=== PATIENT | male | born 1945 | race Caucasian/White ===

== ENCOUNTER 2018-05-10 11:21 | Inpatient (IN) | payer MEDICARE, OTHER ==
[~2018-05-10] VITALS: Ht 162.6 cm; Wt 83.0 kg
--- NOTE | 2018-05-10 11:44 | Emergency Room Report ---
History of Present Illness General Chief Complaint: General Complaint Present Illness HPI Is a 72-year-old male brought in by EMS after increased rectal bleeding. Patient was sent in from [facility]. Patient noted to have bright red blood per rectum. Patient reports having a prior history of schizophrenia. He denies any current pain. Patient was noted to have previous oral anticoagulant use for atrial fibrillation. History is markedly limited by poor historian. Allergies: Coded Allergies: FEXOFENADINE (Verified Allergy, Unknown, 05/10/18) Patient History Past Medical History: see triage record, AFib Reviewed Nursing Documentation: PMH: Agreed; PSxH: Agreed Review of Systems All Other Systems: limited - Poor historian Physical Exam Vital Signs Date Time Temp Pulse Resp B/P (MAP) Pulse Ox O2 Delivery O2 Flow Rate FiO2 05/10/18 11:14 97.5 62 19 124/82 95 Room Air Sp02 EP Interpretation: reviewed, normal General Appearance: normal inspection, well appearing, no apparent distress, alert Head: atraumatic ENT: normal ENT inspection, hearing grossly normal, normal voice Neck: normal inspection, full range of motion, supple, no bony tend Respiratory: normal inspection, lungs clear, normal breath sounds, no respiratory distress, no retraction, no wheezing Cardiovascular #1: regular rate, rhythm, no edema Gastrointestinal: normal inspection, normal bowel sounds, non tender, soft, no guarding, no hernia Rectal: other - gross blood Genitourinary: no CVA tenderness Musculoskeletal: normal inspection, back normal, normal range of motion Neurologic: normal inspection, alert, responsive, speech normal Psychiatric: mood/affect normal Skin: normal inspection, normal color, no rash Medical Decision Making Diagnostic Impression: Primary Impression: Lower GI bleed Additional Impression: On continuous oral anticoagulation ER Course Patient presented for rectal bleeding. Differential diagnosis included but was not limited to aortoenteric fistula, diverticular bleeding, avm, coagulopathy among others. Patient was noted to have brisk bleeding. Initial blood counts were normal. Patient was given IV tranexamic acid due to brisk bleeding. Patient was discussed with Dr. Moe for inpatient management. Dr. Garza was contacted for GI consult. Labs Test Thromboplast Time 32 SEC (23-33) Urine Color Pale yellow Urine Appearance Clear Urine pH 6.5 (4.5-8.0) Urine Specific [place] 1.005 (1.005-1.035) Urine Protein Negative (NEGATIVE) Urine Glucose (UA) Negative (NEGATIVE) Urine Ketones Negative (NEGATIVE) Urine Blood Negative (NEGATIVE) Urine Nitrite Negative (NEGATIVE) Urine Bilirubin Negative (NEGATIVE) Urine Urobilinogen Normal MG/DL (0.0-1.0) Urine Leukocyte Esterase Negative (NEGATIVE) Sodium Level 137 MMOL/L (136-145) Potassium Level 4.3 MMOL/L (3.5-5.1) Chloride Level 100 MMOL/L (98-107) Carbon Dioxide Level 29 MMOL/L (21-32) Anion Gap 8 mmol/L (5-15) Blood Urea Nitrogen 23 mg/dL (7-18) Creatinine 1.1 MG/DL (0.55-1.30) Estimat Glomerular Filtration Rate mL/min (>60) Glucose Level 95 MG/DL (74-106) Calcium Level 9.4 MG/DL (8.5-10.1) Total Bilirubin 0.5 MG/DL (0.2-1.0) Aspartate Amino Transf (AST/SGOT) 25 U/L (15-37) Alanine Aminotransferase (ALT/SGPT) 32 U/L (12-78) Alkaline Phosphatase 104 U/L (46-116) Troponin I 0.003 ng/mL (0.000-0.056) Total Protein 7.6 G/DL (6.4-8.2) Albumin 3.6 G/DL (3.4-5.0) Globulin 4.0 g/dL Albumin/Globulin Ratio 0.9 (1.0-2.7) Lipase 128 U/L (73-393) White Blood Count 6.8 K/UL (4.8-10.8) Red Blood Count 5.07 M/UL (4.70-6.10) Hemoglobin 13.9 G/DL (14.2-18.0) Hematocrit 43.0 % (42.0-52.0) Mean Corpuscular Volume 85 FL (80-99) Mean Corpuscular Hemoglobin 27.5 PG (27.0-31.0) Mean Corpuscular Hemoglobin Concent 32.4 G/DL (32.0-36.0) Red Cell Distribution Width 13.9 % (11.6-14.8) Platelet Count 203 K/UL (150-450) Mean Platelet Volume 6.4 FL (6.5-10.1) Neutrophils (%) (Auto) 67.9 % (45.0-75.0) Lymphocytes (%) (Auto) 22.1 % (20.0-45.0) Monocytes (%) (Auto) 8.0 % (1.0-10.0) Eosinophils (%) (Auto) 1.4 % (0.0-3.0) Basophils (%) (Auto) 0.6 % (0.0-2.0) EKG Diagnostic Results Rate: normal Rhythm: NSR ST Segments: no acute changes Last Vital Signs Date Time Temp Pulse Resp B/P (MAP) Pulse Ox O2 Delivery O2 Flow Rate FiO2 05/10/18 11:14 97.5 62 19 124/82 95 Room Air Status: unchanged Disposition: ADMITTED INPATIENT Mark Rosales MD May 10, 2018 11:44
[2018-05-10] MEDS ORDERED: Pantoprazole Inj IV ONE (11:45)
[2018-05-10] MEDS ORDERED: Isovue-300 100ml vial INJ PRN (11:45)
[2018-05-10 12:02] VITALS: BP 128/75
--- NOTE | 2018-05-10 12:02 | NUR ---
ED Nurse Note: Patient resting in bed. Patient awake, alert, oriented x 3, talking to himself, hx of schizophrenia. Patient presents to ER due to rectal bleeding, undressed patient, removed diaper, saturated with bright, red blood. Patient states 'I put fingers ' in the rectum. No active bleeding noted from the affected site. Patient placed on playground monitor. Bed in lowest position.
[2018-05-10 12:29] LABS: APPEARANCE,URINE CLEAR; BILIRUBIN, URINE NEGATIVE (NEGATIVE); COLOR,URINE PALE YELLOW; GLUCOSE, URINE (UA) NEGATIVE (NEGATIVE); KETONES,URINE NEGATIVE (NEGATIVE); LEUKOCYTE ESTERASE ,URINE NEGATIVE (NEGATIVE); NITRITE,URINE NEGATIVE (NEGATIVE); PH,URINE 6.5 (4.5-8.0); PROTEIN,URINE NEGATIVE (NEGATIVE); UROBILINOGEN,URINE NORMAL MG/DL (0.0-1.0)
[2018-05-10] MEDS ORDERED: CALCIUM + D3 E1 EACH PO (12:32)
[2018-05-10] MEDS ORDERED: ACIDOPHILUS1 EAC7 PO (12:32)
[2018-05-10] MEDS ORDERED: MULTIVITAMINS1 EAC8 ORAL (12:32)
[2018-05-10] MEDS ORDERED: PROSCAR5 MG ORAL (12:32)
[2018-05-10 12:37] LABS: BASOPHILS % (AUTO) 0.8 % (0.0-2.0); EOSINOPHILS % (AUTO) 1.4 % (0.0-3.0); HEMATOCRIT 43.9 % (42.0-52.0); HEMOGLOBIN 13.6 G/DL (14.2-18.0); LYMPHOCYTES % (AUTO) 21.4 % (20.0-45.0); MEAN CORPUSCULAR VOLUME 87 FL (80-99); MONOCYTES % (AUTO) 10.1 % (1.0-10.0); NEUTROPHILS % (AUTO) 66.4 % (45.0-75.0); PLATELET COUNT 205 K/UL (150-450); RED BLOOD COUNT 5.03 M/UL (4.70-6.10); RED CELL DISTRIBUTION WIDTH 14.2 % (11.6-14.8); WHITE BLOOD COUNT 7.5 K/UL (4.8-10.8)
[2018-05-10] MEDS ORDERED: DOCUSATE SODIU250 MG ORAL (12:42)
[2018-05-10] MEDS ORDERED: ELIQUIS5 MG PO (12:42)
[2018-05-10] MEDS ORDERED: POTASSIUM CHLO20 ME1 ORAL (12:42)
[2018-05-10] MEDS ORDERED: FLONASE ALLERG9.9 ML NS (12:42)
[2018-05-10] MEDS ORDERED: MONTELUKAST SOD10 MG ORAL (12:42)
[2018-05-10] MEDS ORDERED: BETHANECHOL CHL10 MG ORAL (12:42)
[2018-05-10] MEDS ORDERED: METOPROLOL TART50 M1 ORAL (12:42)
[2018-05-10] MEDS ORDERED: ATIVAN1 MG ORAL (12:42)
[2018-05-10] MEDS ORDERED: FUROSEMIDE40 MG ORAL (12:42)
[2018-05-10] MEDS ORDERED: TAMSULOSIN HCL0.4 MG ORAL (12:42)
[2018-05-10] MEDS ORDERED: ZYPREXA10 MG ORAL (12:42)
[2018-05-10 12:44] LABS: ANION GAP 8 mmol/L (5-15); BLOOD UREA NITROGEN 23 mg/dL (7-18); CALCIUM 9.4 MG/DL (8.5-10.1); CARBON DIOXIDE 29 MMOL/L (21-32); CHLORIDE 100 MMOL/L (98-107); CREATININE 1.1 MG/DL (0.55-1.30); POTASSIUM 4.3 MMOL/L (3.5-5.1); SODIUM 137 MMOL/L (136-145)
[2018-05-10] MEDS ORDERED: MIRTAZAPINE7.5 MG ORAL (12:44)
[2018-05-10] MEDS ORDERED: PANTOPRAZOLE SO20 MG ORAL (12:45)
[2018-05-10] MEDS ORDERED: LEVOTHYROXINE175 MCG ORAL (12:50)
[2018-05-10] MEDS ORDERED: ACETAMINOPHEN325 M1 ORAL (12:50)
[2018-05-10] MEDS ORDERED: ATORVASTATIN CA40 MG ORAL (12:50)
[2018-05-10 12:54] LABS: ALANINE AMINOTRANSFERASE 32 U/L (12-78); ALBUMIN 3.6 G/DL (3.4-5.0); ALBUMIN/GLOBULIN RATIO 0.9 (1.0-2.7); ALKALINE PHOSPHATASE 104 U/L (46-116); ASPARTATE AMINO TRANSFERASE 25 U/L (15-37); BILIRUBIN,TOTAL 0.5 MG/DL (0.2-1.0)
--- NOTE | 2018-05-10 12:58 | NUR ---
ED Nurse Note: Dr. Rosales notified of diaper with blood and pad getting saturated with blood (unknown amount) at this time.
--- NOTE | 2018-05-10 13:21 | NUR ---
ED Nurse Note: Patient taken down for CT exam.
--- NOTE | 2018-05-10 14:02 | NUR ---
ED Nurse Note: Dr. Rosales notified of patient passing blood clots ( approximately amount of fist size).Patient reports no dizziness or drowsiness.
[2018-05-10 14:04] VITALS: BP 108/80
--- NOTE | 2018-05-10 14:17 | Diagnostic Imaging Report ---
Clinical Indication: Abdominal pain, increased rectal bleeding Technique: No oral contrast utilized, per emergency room physician request IV administration nonionic contrast. Venous phase spiral acquisition obtained through the abdomen and pelvis. Multiplanar reconstructions were generated. Total dose length product 1428.24 mGycm. CTDIvol(s) 17.25,19.51 mGy. Dose reduction achieved using automated exposure control Comparison: none Findings: Lack of enteric contrast limits assessment of the GI tract. High attenuation material is seen filling the sigmoid colon and rectum. Considerable stool is seen throughout the remainder the colon. The appendix is not definitely demonstrated, likely due to the motion artifact, although no definite findings to suggest acute appendicitis are evident. There is colonic diverticulosis. No definite small bowel distention. No definite free or loculated intraperitoneal gas or fluid. The distal esophagus, stomach, duodenum are unremarkable. There are bilateral small fat-containing inguinal hernias. The liver, gallbladder, bile ducts, pancreas spleen, adrenals are unremarkable. The left kidney demonstrates a 1.5 cm cyst. Both kidneys demonstrate subcentimeter low-attenuation lesion, characterize, most likely benign simple cysts. No retroperitoneal or mesenteric mass or adenopathy. No pelvic mass or adenopathy. The bladder is distended. The lung bases are clear except for minimal dependent atelectatic changes. The bones demonstrate degenerative spondylosis changes at the lumbosacral junction. Impression: Limited assessment of the GI tract, due to lack of enteric contrast administration High attenuation material, presumably blood given stated clinical history, seen filling the sigmoid colon and rectum. Etiology of the bleeding is not definitely demonstrated Colonic diverticulosis. No evidence of acute diverticulitis. Left renal cysts. Subcentimeter low-attenuation bilateral renal lesions, too small to characterize, most likely benign simple cysts Other findings as noted, including dependent basilar pulmonary atelectatic changes, degenerative spondylosis, bilateral small fat-containing inguinal hernias The CT scanner at [facility] is accredited by the [employer] and the scans are performed using protocols designed to limit radiation exposure to as low as reasonably achievable to attain images of sufficient resolution adequate for diagnostic evaluation.
[2018-05-10 15:15] VITALS: BP 119/89
--- NOTE | 2018-05-10 15:25 | NUR ---
ED Nurse Note: patient had bowel movement with tons of blood in it. ERMD notifyed.
[2018-05-10 15:28] LABS: BASOPHILS % (AUTO) 0.6 % (0.0-2.0); EOSINOPHILS % (AUTO) 1.4 % (0.0-3.0); HEMOGLOBIN 13.9 G/DL (14.2-18.0); LYMPHOCYTES % (AUTO) 22.1 % (20.0-45.0); MEAN CORPUSCULAR VOLUME 85 FL (80-99); NEUTROPHILS % (AUTO) 67.9 % (45.0-75.0); PLATELET COUNT 203 K/UL (150-450); RED BLOOD COUNT 5.07 M/UL (4.70-6.10); RED CELL DISTRIBUTION WIDTH 13.9 % (11.6-14.8); WHITE BLOOD COUNT 6.8 K/UL (4.8-10.8)
[2018-05-10] MEDS ORDERED: Tranexamic Acid 1,000 MG in NS 55 ML IVPB ONE (15:30)
--- NOTE | 2018-05-10 15:58 | GI Initial Consult Note ---
History of Present Illness General Date patient seen: May 10, 2018 Time patient seen: 15:53 Reason for Hospitalization: General Complaint Referring physician: SANJUANITA Reason for Consultation: lower GI bleed Present Illness HPI Is a 72-year-old male brought in by EMS after increased rectal bleeding. Patient [facility]. Patient noted to have bright red blood per rectum. Patient reports having a prior history of schizophrenia. He denies any current pain. History is markedly limited by poor historian. GI consulted for lower GI bleed. ROS limited, patient has history of schizophrenia. Patient seen, awake alert oriented no apparent distress with no active signs or symptoms of nausea vomiting. Observed in ER, the patient had a episode of severe lower GI bleed. Labs reviewed; patient hemoglobin of 13.9, no transaminitis, no leukocytosis. Unknown history of endoscopic colonoscopy. Documented the patient is on Eliquis. Home Meds Reported Medications Acetaminophen* (ACETAMINOPHEN 325MG TABLET*) 325 Mg Tablet, 650 MG ORAL Q6H PRN for For Pain, TAB 05/10/18 Atorvastatin Calcium* (ATORVASTATIN CALCIUM*) 40 Mg Tablet, 40 MG ORAL BEDTIME, TAB 05/10/18 Levothyroxine Sodium (LEVOTHYROXINE SODIUM) 175 Mcg Tablet, 50 MCG ORAL DAILY, TAB Take in the morning on an empty stomach, at least 30 minutes before food. 05/10/18 Pantoprazole (PANTOPRAZOLE) 20 Mg Tablet.dr, 40 MG ORAL DAILY, #10 TAB 0 Refills 05/10/18 Mirtazapine* (MIRTAZAPINE*) 7.5 Mg Tablet, 7.5 MG ORAL BEDTIME, TAB 05/10/18 Montelukast Sodium* (MONTELUKAST SODIUM*) 10 Mg Tablet, 10 MG ORAL BEDTIME, TAB 05/10/18 Tamsulosin Hcl (TAMSULOSIN HCL*) 0.4 Mg Cap.er.24h, 0.4 MG ORAL BEDTIME, CAP 05/10/18 Bethanechol* (BETHANECHOL*) 10 Mg Tablet, 10 MG ORAL THREE TIMES A DAY, TAB 05/10/18 Metoprolol Tartrate* (METOPROLOL TARTRATE*) 50 Mg Tablet, 50 MG ORAL EVERY 12 HOURS, TAB 05/10/18 Apixaban (ELIQUIS) 5 Mg Tablet, 5 MG PO BID, TAB 05/10/18 Lorazepam* (ATIVAN*) 1 Mg Tablet, 1 MG ORAL BID, TAB 05/10/18 Fluticasone Propionate (Flonase Allergy Relief) 9.9 Ml [place].susp, 9.9 ML NS BID 05/10/18 Docusate Sodium* (DOCUSATE SODIUM*) 250 Mg Capsule, 250 MG ORAL TWICE A DAY, CAP 05/10/18 Olanzapine* (ZYPREXA*) 10 Mg Tablet, 15 MG ORAL DAILY, #30 TAB 0 Refills 05/10/18 Potassium Chloride* (K-DUR*) 20 Meq Tab.er.prt, 20 MEQ ORAL DAILY, #7 TAB 0 Refills 05/10/18 Furosemide* (LASIX*) 40 Mg Tablet, 40 MG ORAL DAILY, TAB 05/10/18 Lactobacillus Acidophilus (Acidophilus) 1 Each Tablet, 1 EACH PO DAILY, TAB 05/10/18 Finasteride* (PROSCAR*) 5 Mg Tablet, 5 MG ORAL DAILY, #30 TAB 0 Refills 05/10/18 Calcium Carb & Cit/Vitamin D3 (CALCIUM + D3 ER TABLET) 1 Each Tablet.er, 1 EACH PO DAILY, TAB 05/10/18 Multivitamin With Minerals (MULTIVITAMINS WITH MINERALS*) 1 Each Tablet, 1 TAB ORAL DAILY, TAB 05/10/18 Med list reviewed/reconciled: Yes Allergies: Coded Allergies: FEXOFENADINE (Verified Allergy, Unknown, 05/10/18) Patient History Limited by: medical condition History Provided By: Medical Record PMH Narrative Reviewed Nursing Documentation: PMH: Agreed; PSxH: Agreed Social History: Denies: smoking, alcohol use, drug use, other Review of Systems All Other Systems: limited Physical Exam Vital Signs Date Time Temp Pulse Resp B/P (MAP) Pulse Ox O2 Delivery O2 Flow Rate FiO2 05/10/18 11:14 97.5 62 19 124/82 95 Room Air Sp02 EP Interpretation: reviewed, normal Labs Laboratory Tests Test 05/10/18 12:14 05/10/18 15:00 White Blood Count 7.5 K/UL (4.8-10.8) 6.8 K/UL (4.8-10.8) Red Blood Count 5.03 M/UL (4.70-6.10) 5.07 M/UL (4.70-6.10) Hemoglobin 13.6 G/DL (14.2-18.0) L 13.9 G/DL (14.2-18.0) L Hematocrit 43.9 % (42.0-52.0) 43.0 % (42.0-52.0) Mean Corpuscular Volume 87 FL (80-99) 85 FL (80-99) Mean Corpuscular Hemoglobin 27.1 PG (27.0-31.0) 27.5 PG (27.0-31.0) Mean Corpuscular Hemoglobin Concent 31.1 G/DL (32.0-36.0) L 32.4 G/DL (32.0-36.0) Red Cell Distribution Width 14.2 % (11.6-14.8) 13.9 % (11.6-14.8) Platelet Count 205 K/UL (150-450) 203 K/UL (150-450) Mean Platelet Volume 6.6 FL (6.5-10.1) 6.4 FL (6.5-10.1) L Neutrophils (%) (Auto) 66.4 % (45.0-75.0) 67.9 % (45.0-75.0) Lymphocytes (%) (Auto) 21.4 % (20.0-45.0) 22.1 % (20.0-45.0) Monocytes (%) (Auto) 10.1 % (1.0-10.0) H 8.0 % (1.0-10.0) Eosinophils (%) (Auto) 1.4 % (0.0-3.0) 1.4 % (0.0-3.0) Basophils (%) (Auto) 0.8 % (0.0-2.0) 0.6 % (0.0-2.0) Activated Partial Thromboplast Time 32 SEC (23-33) Urine Color Pale yellow Urine Appearance Clear Urine pH 6.5 (4.5-8.0) Urine Specific [place] 1.005 (1.005-1.035) Urine Protein Negative (NEGATIVE) Urine Glucose (UA) Negative (NEGATIVE) Urine Ketones Negative (NEGATIVE) Urine Blood Negative (NEGATIVE) Urine Nitrite Negative (NEGATIVE) Urine Bilirubin Negative (NEGATIVE) Urine Urobilinogen Normal MG/DL (0.0-1.0) Urine Leukocyte Esterase Negative (NEGATIVE) Sodium Level 137 MMOL/L (136-145) Potassium Level 4.3 MMOL/L (3.5-5.1) Chloride Level 100 MMOL/L (98-107) Carbon Dioxide Level 29 MMOL/L (21-32) Anion Gap 8 mmol/L (5-15) Blood Urea Nitrogen 23 mg/dL (7-18) H Creatinine 1.1 MG/DL (0.55-1.30) Estimat Glomerular Filtration Rate mL/min (>60) Glucose Level 95 MG/DL (74-106) Calcium Level 9.4 MG/DL (8.5-10.1) Total Bilirubin 0.5 MG/DL (0.2-1.0) Aspartate Amino Transf (AST/SGOT) 25 U/L (15-37) Alanine Aminotransferase (ALT/SGPT) 32 U/L (12-78) Alkaline Phosphatase 104 U/L (46-116) Troponin I 0.003 ng/mL (0.000-0.056) Total Protein 7.6 G/DL (6.4-8.2) Albumin 3.6 G/DL (3.4-5.0) Globulin 4.0 g/dL Albumin/Globulin Ratio 0.9 (1.0-2.7) L Lipase 128 U/L (73-393) General Appearance: well appearing, no apparent distress, alert Head: normocephalic EENT: PERRL/EOMI, normal ENT inspection Neck: supple Respiratory: normal breath sounds, no respiratory distress Cardiovascular: normal rate Gastrointestinal: normal inspection, non tender, soft, normal bowel sounds, non -distended Rectal: deferred Genitourinary: deferred Musculoskeletal: normal inspection, back normal Neurologic: normal inspection, alert, oriented x3, responsive Psychiatric: normal inspection, judgement/insight normal, memory normal Skin: normal inspection, normal color, no rash, warm/dry, palpation normal, well hydrated Lymphatic: normal inspection, no adenopathy Current Medications Current Medications Medications (Trade) Dose Ordered Sig/Merry Route PRN Reason Start Time Stop Time Status Last Admin Dose Admin Iopamidol (Isovue-300 100ml) 100 ml NOW PRN INJ Radiology Procedure 05/10/18 11:45 Tranexamic Acid 1000 mg/Sodium Chloride 65 ml @ 50 mls/hr Q1H18M ONCE IVPB 05/10/18 15:30 05/10/18 16:47 05/10/18 15:33 GI: Plan Problems: (1) Lower GI bleed Plan Plan for colonoscopy tomorrow. - CLD, NPO @ CT - Hold Eliquis and all blood thinners. Monitor H&H, PRN transfusions PPI follow labs will follow with additional recommendations post procedure Discussed with Dr. Garza. Thank you for this patient referral, we will follow. The patient was seen and examined at bedside and all new and available data was reviewed in the patients chart. I agree with the above findings, impression and plan. (Patient seen earlier today. Signature stamp does not reflect patient encounter time.). - MD Mercedes Clay,[facility] [employer] May 10, 2018 15:58
[2018-05-10] MEDS ORDERED: Bisacodyl EC 5mg tab ORAL SCH (16:00)
[2018-05-10] MEDS ORDERED: Magnesium Citrate Liq Btl ORAL SCH (16:00)
[2018-05-10] MEDS ORDERED: Polyethylene Glycol 238gm bottle ORAL SCH (16:00)
--- NOTE | 2018-05-10 19:30 | NUR ---
NURSE NOTES: Report received from Vika JIMÉNEZ. Pt is resting in bed in stable condition. Pt is sleeping but easily arousable by voice and light touch. Pt is oriented x2 to name and date. Pt is otherwise disoriented. Pt is on room air and breathing is even and unlabored. No acute distress noted. IV sites are noted to be L AC #18g and R FA #20g - both are asymptomatic, patent, and intact. Bed is placed in lowest position with brake engaged, side rails up x3, and bed alarm on. Call light and side table placed within reach. Will continue to monitor.
--- NOTE | 2018-05-10 19:42 | NUR ---
HAND-OFF: Report given to Rina JESSY.
[2018-05-10 20:00] VITALS: BP 93/61
--- NOTE | 2018-05-10 20:30 | NUR ---
NURSE NOTES: Pt had large bright red bloody stool. Noted that pt was given laxatives in preparation for colonoscopy in AM. Fleet enema to be administered later this evening. Will continue to monitor patient. Addendum: 05/11/18 at 0158 by KEVIN RODRIGUEZ RN MD Moe notified of large, bloody stool.
[2018-05-10] MEDS: Fleet's Enema 133ml RECTAL ONE ×2 (23:00→23:58)
--- NOTE | 2018-05-10 23:00 | NUR ---
NURSE NOTES: Pt is refusing enema at this time. Explained the importance of enema in preparation for procedure in AM. Pt continues to refuse. Will attempt to try again later.
--- NOTE | 2018-05-10 23:17 | NUR ---
NURSE NOTES: MD Moe notified of large, bright red bloody stool. Per , order H&H Q8HR starting now. Orders noted and carried out.
--- NOTE | 2018-05-10 23:17 | NUR ---
NURSE NOTES: Pt BP noted to be 93/61. MD Moe notified. Per , order 500cc bolus of NS q4HR PRN for SBP < 95. MD Moe provided other orders as well which are noted and carried out.
[2018-05-10] MEDS ORDERED: Morphine Sulfate 2mg/ml Inj(IV/IM USE ONLY) IVP PRN (23:30)
[2018-05-10] MEDS: D5NS 1,000 ML IV SCH (23:58)
[2018-05-11] VITALS (10 sets, daily range): BP systolic 101–147; BP diastolic 67–88
--- NOTE | 2018-05-11 | NUR ---
NURSE NOTES: 500cc bolus of NS administered per PRN orders. BP increased to 101/70. Will continue to monitor patient.
[2018-05-11 00:08] LABS: HEMATOCRIT 38.2 % (42.0-52.0); HEMOGLOBIN 12.7 G/DL (14.2-18.0); MEAN CORPUSCULAR VOLUME 84 FL (80-99); PLATELET COUNT 200 K/UL (150-450); RED BLOOD COUNT 4.54 M/UL (4.70-6.10); RED CELL DISTRIBUTION WIDTH 13.7 % (11.6-14.8); WHITE BLOOD COUNT 12.1 K/UL (4.8-10.8)
--- NOTE | 2018-05-11 00:20 | NUR ---
NURSE NOTES: MD Moe notified of increase in WBC to 12.1 and current Hgb: 12.7 and Hct: 38.2. Per MD, no new orders at this time. Will continue to monitor patient.
--- NOTE | 2018-05-11 03:13 | NUR ---
NURSE NOTES: Pt is still refusing enema at this time. Again, explained the importance of enema in preparation for procedure in AM. Pt continues to refuse. Will attempt to try again later.
--- NOTE | 2018-05-11 06:00 | NUR ---
NURSE NOTES: Attempted to contact [facility] regarding information about patient. No answer at this time. Will try again at a later time.
--- NOTE | 2018-05-11 07:18 | NUR ---
NURSE NOTES: MD Moe contacted with list of home medications. Per , continue all medications except psychiatric and blood pressure medications. Eliquis, ativan, metoprolol, mirtazapine, and zyprexa discontinued at this time per MD Moe orders. All other orders noted and carried out.
--- NOTE | 2018-05-11 07:20 | NUR ---
HAND-OFF: Report given to Myron Mooney RN. Pt is resting in bed in stable condition. No acute distress noted. Endorsed plan of care.
--- NOTE | 2018-05-11 07:40 | NUR ---
NURSE NOTES: pt awake alert, no distress. no sob. call light within reach. ivf running. bed in lowest position, locked.
[2018-05-11] MEDS: Docusate 250mg cap ORAL SCH ×2 (08:12→17:11)
[2018-05-11] MEDS: Bethanechol 10mg Tab ORAL SCH ×3 (08:13→17:11)
--- NOTE | 2018-05-11 08:36 | NUR ---
CASE MANAGEMENT:REVIEW 72 YR OLD MALE BIBA FROM [facility] CC: RECTAL BLEEDING. PASSING OF BLOOD CLOTS NOTED IN ER PMH: SCHIZOPHRENIA SI: LGIB 97.5 62 19 124/82 95% ON RA H/H-13.6/43.9 BUN+23 IS: IV PROTONIX X1 500CC NS BOLUS X1 IV TRANEXAMIC X1 MAG CITRATE PO X1 CT ABD/PELVIS URINE REFLEX : TO TELEMETRY INTERQUAL
--- NOTE | 2018-05-11 08:38 | Anethesia Preoperative Eval ---
Anesthesia Pre-op PMH/ROS General Date of Evaluation: May 11, 2018 Time of Evaluation: 08:34 Anesthesiologist: Elizabeth Hernandez. [employer]EL[employer] ASA Score: ASA 3 Mallampati Score Class I : Soft palate, uvula, fauces, pillars visible Class II: Soft palate, uvula, fauces visible Class III: Soft palate, base of uvula visible Class IV: Only hard plate visible Mallampati Classification: Class III Surgeon: Greg Diagnosis: Lower GI bleed Surgical Procedure: Diagnostic colonoscopy Anesthesia History: none Social History: smoking Family History: no anesthesia problems Allergies: Coded Allergies: FEXOFENADINE (Verified Allergy, Unknown, 05/10/18) Medications: see eMAR Patient NPO?: Yes Past Medical History Cardiovascular: Reports: HTN, other - Hypercholesterolemia; Denies: CAD, [place], valve dz, arrhythmia Pulmonary: Reports: COPD; Denies: asthma, CRISTINA, other Gastrointestinal/Genitourinary: Reports: other - ER for acute lower GI bleed, divericulosis per CT; Denies: GERD, CRI, ESRD Neurologic/Psychiatric: Reports: other - schizophrenia; Denies: dementia, CVA, depression/anxiety, TIA Endocrine: Reports: hypothyroidism; Denies: DM, steroids, other HEENT: Denies: cataract (L), cataract (R), glaucoma, MECHOOPDA (L), MECHOOPDA (R), other Hematology/Immune: Denies: anemia, DVT, bleeding disorder, other Musculoskeletal/Integumentary: Denies: OA, RA, DJD, DDD, edema, other Other: obesity PMH Narrative: as above PSxH Narrative: none Anesthesia Pre-op Phys. Exam Physician Exam Last Vital Signs Date Time Temp Pulse Resp B/P (MAP) Pulse Ox O2 Delivery O2 Flow Rate FiO2 05/11/18 07:33 Room Air 05/11/18 07:32 98.6 68 20 137/75 (95) 100 Constitutional: NAD Neurologic: CN 2-12 intact, other - not oriented Cardiovascular: RRR Respiratory: CTA Gastrointestinal: S/NT/ND Airway Exam Mallampati Score: Class III MO: full Neck: FROM TMD: >3 FB ROM: full Teeth: intact Dentures: no upper, no lower Anesthesia Pre-op A/P Labs Hematology Test 05/10/18 12:14 05/10/18 15:00 05/10/18 23:45 White Blood Count 7.5 K/UL (4.8-10.8) 6.8 K/UL (4.8-10.8) 12.1 K/UL (4.8-10.8) #H Red Blood Count 5.03 M/UL (4.70-6.10) 5.07 M/UL (4.70-6.10) 4.54 M/UL (4.70-6.10) L Hemoglobin 13.6 G/DL (14.2-18.0) L 13.9 G/DL (14.2-18.0) L 12.7 G/DL (14.2-18.0) L Hematocrit 43.9 % (42.0-52.0) 43.0 % (42.0-52.0) 38.2 % (42.0-52.0) L Mean Corpuscular Volume 87 FL (80-99) 85 FL (80-99) 84 FL (80-99) Mean Corpuscular Hemoglobin 27.1 PG (27.0-31.0) 27.5 PG (27.0-31.0) 28.1 PG (27.0-31.0) Mean Corpuscular Hemoglobin Concent 31.1 G/DL (32.0-36.0) L 32.4 G/DL (32.0-36.0) 33.4 G/DL (32.0-36.0) Red Cell Distribution Width 14.2 % (11.6-14.8) 13.9 % (11.6-14.8) 13.7 % (11.6-14.8) Platelet Count 205 K/UL (150-450) 203 K/UL (150-450) 200 K/UL (150-450) Mean Platelet Volume 6.6 FL (6.5-10.1) 6.4 FL (6.5-10.1) L 6.6 FL (6.5-10.1) Neutrophils (%) (Auto) 66.4 % (45.0-75.0) 67.9 % (45.0-75.0) % (45.0-75.0) Lymphocytes (%) (Auto) 21.4 % (20.0-45.0) 22.1 % (20.0-45.0) % (20.0-45.0) Monocytes (%) (Auto) 10.1 % (1.0-10.0) H 8.0 % (1.0-10.0) % (1.0-10.0) Eosinophils (%) (Auto) 1.4 % (0.0-3.0) 1.4 % (0.0-3.0) % (0.0-3.0) Basophils (%) (Auto) 0.8 % (0.0-2.0) 0.6 % (0.0-2.0) % (0.0-2.0) Coagulation Test 05/10/18 12:14 Activated Partial Thromboplast Time 32 SEC (23-33) Chemistry Test 05/10/18 12:14 Sodium Level 137 MMOL/L (136-145) Potassium Level 4.3 MMOL/L (3.5-5.1) Chloride Level 100 MMOL/L (98-107) Carbon Dioxide Level 29 MMOL/L (21-32) Anion Gap 8 mmol/L (5-15) Blood Urea Nitrogen 23 mg/dL (7-18) H Creatinine 1.1 MG/DL (0.55-1.30) Estimat Glomerular Filtration Rate mL/min (>60) Glucose Level 95 MG/DL (74-106) Calcium Level 9.4 MG/DL (8.5-10.1) Total Bilirubin 0.5 MG/DL (0.2-1.0) Aspartate Amino Transf (AST/SGOT) 25 U/L (15-37) Alanine Aminotransferase (ALT/SGPT) 32 U/L (12-78) Alkaline Phosphatase 104 U/L (46-116) Troponin I 0.003 ng/mL (0.000-0.056) Total Protein 7.6 G/DL (6.4-8.2) Albumin 3.6 G/DL (3.4-5.0) Globulin 4.0 g/dL Albumin/Globulin Ratio 0.9 (1.0-2.7) L Lipase 128 U/L (73-393) Studies Pre-op Studies: EKG - NSR Risk Assessment & Plan Assessment: ASA 3, ok to proceed Plan: MAC Status Change Before Surgery: No Pre-Antibiotics Given Within 1 Hr of Incision: No Elizabeth Hernandez CRNA May 11, 2018 08:38
[2018-05-11] MEDS ORDERED: Calcium Carbonate 500mg w/Vit D 200iu tab ORAL SCH (09:00)
[2018-05-11] MEDS: Flonase Nasal Inhaler 16gm NASAL SCH ×2 (09:00→17:11)
[2018-05-11] MEDS ORDERED: Pantoprazole Inj IVP SCH (09:00)
[2018-05-11] MEDS ORDERED: Lactobacillus-GG tablet ORAL SCH (09:00)
[2018-05-11 09:04] LABS: BASOPHILS % (AUTO) 0.2 % (0.0-2.0); EOSINOPHILS % (AUTO) 0.3 % (0.0-3.0); HEMATOCRIT 37.9 % (42.0-52.0); HEMOGLOBIN 12.3 G/DL (14.2-18.0); LYMPHOCYTES % (AUTO) 11.9 % (20.0-45.0); MEAN CORPUSCULAR VOLUME 85 FL (80-99); MONOCYTES % (AUTO) 8.1 % (1.0-10.0); NEUTROPHILS % (AUTO) 79.5 % (45.0-75.0); PLATELET COUNT 209 K/UL (150-450); RED BLOOD COUNT 4.44 M/UL (4.70-6.10); RED CELL DISTRIBUTION WIDTH 14.3 % (11.6-14.8); WHITE BLOOD COUNT 8.5 K/UL (4.8-10.8)
--- NOTE | 2018-05-11 09:05 | NUR ---
NURSE NOTES: called [phone] [facility] public guardian, according to them, they cannot authorize medical procedures. left msg to Dr Moe left msg to Osvaldo [employer] , aware of need for progress note
[2018-05-11 09:13] LABS: ANION GAP 6 mmol/L (5-15); BLOOD UREA NITROGEN 28 mg/dL (7-18); CALCIUM 8.7 MG/DL (8.5-10.1); CARBON DIOXIDE 28 MMOL/L (21-32); CHLORIDE 107 MMOL/L (98-107); POTASSIUM 4.2 MMOL/L (3.5-5.1); SODIUM 141 MMOL/L (136-145)
[2018-05-11] MEDS: D5NS 1,000 ML IV SCH ×3 (09:37→20:35)
--- NOTE | 2018-05-11 10:30 | NUR ---
NURSE NOTES: pt had soft to liquid brown bm, kept pt clean dry and comfortable, call light within reach. horacio reis's given
--- NOTE | 2018-05-11 10:59 | NUR ---
NURSE NOTES: relayed to Obey pearl and that fleets enema was given received order from Dr Garza tap water enema Addendum: 05/11/18 at 1122 by LANI MCNEAL RN tap water enema given
[2018-05-11] MEDS ORDERED: Fleet's Enema 133ml RECTAL SCH (11:00)
--- NOTE | 2018-05-11 11:23 | Consultation ---
History of Present Illness General Chief Complaint: General Complaint Referring physician: SANJUANITA Reason for Consultation: lower GI bleed Present Illness HPI 72-year-old male brought in by EMS after increased rectal bleeding. the pt has hx of agitation and psychosis. the pt is on zyprexa and remron. the pt was agitated and responding to internal stimuli. the pt is delusional and attempting to come out of bed. the pt is following direction. the pt has memory impairment. Allergies: Coded Allergies: FEXOFENADINE (Verified Allergy, Unknown, 05/10/18) Medication History Scheduled Apixaban (Eliquis), 5 MG PO BID, (Reported) Atorvastatin Calcium* (Atorvastatin Calcium*), 40 MG ORAL BEDTIME, (Reported) Bethanechol* (Bethanechol*), 10 MG ORAL THREE TIMES A DAY, (Reported) Calcium Carb & Cit/Vitamin D3 (Calcium + D3 Er Tablet), 1 EACH PO DAILY, ( Reported) Docusate Sodium* (Docusate Sodium*), 250 MG ORAL TWICE A DAY, (Reported) Finasteride* (Proscar*), 5 MG ORAL DAILY, (Reported) Fluticasone Propionate (Flonase Allergy Relief), 9.9 ML NS BID, (Reported) Furosemide* (Lasix*), 40 MG ORAL DAILY, (Reported) Lactobacillus Acidophilus (Acidophilus), 1 EACH PO DAILY, (Reported) Levothyroxine Sodium (Levothyroxine Sodium), 50 MCG ORAL DAILY, (Reported) Lorazepam* (Ativan*), 1 MG ORAL BID, (Reported) Metoprolol Tartrate* (Metoprolol Tartrate*), 50 MG ORAL EVERY 12 HOURS, ( Reported) Mirtazapine* (Mirtazapine*), 7.5 MG ORAL BEDTIME, (Reported) Montelukast Sodium* (Montelukast Sodium*), 10 MG ORAL BEDTIME, (Reported) Multivitamin With Minerals (Multivitamins With Minerals*), 1 TAB ORAL DAILY, ( Reported) Olanzapine* (Zyprexa*), 15 MG ORAL DAILY, (Reported) Pantoprazole (Pantoprazole), 40 MG ORAL DAILY, (Reported) Potassium Chloride* (K-Dur*), 20 MEQ ORAL DAILY, (Reported) Tamsulosin Hcl (Tamsulosin Hcl*), 0.4 MG ORAL BEDTIME, (Reported) Scheduled PRN Acetaminophen* (Acetaminophen 325MG Tablet*), 650 MG ORAL Q6H PRN for For Pain, (Reported) Patient History Healthcare decision maker [facility] Resuscitation status Full Code Advanced Directive on File No Review of Systems Psychiatric: Reports: prior hx, anxiety, depressed feelings, hallucinations Physical Exam General Appearance: WD/WN, alert, overweight Neurologic: disoriented, depressed affect Last 24 Hour Vital Signs Date Time Temp Pulse Resp B/P (MAP) Pulse Ox O2 Delivery O2 Flow Rate FiO2 05/11/18 07:56 69 05/11/18 07:33 Room Air 05/11/18 07:32 98.6 68 20 137/75 (95) 100 05/11/18 04:00 79 05/11/18 04:00 98.6 86 20 115/75 (88) 100 05/11/18 00:00 75 05/11/18 00:00 98.6 80 17 101/70 (80) 98 05/10/18 21:00 Room Air 05/10/18 20:00 98.1 76 16 93/61 (72) 99 05/10/18 20:00 98 05/10/18 16:53 Room Air 05/10/18 16:10 78 22 Room Air 05/10/18 16:10 98.0 77 22 110/76 98 Room Air 78 05/10/18 15:15 96.3 72 16 119/89 98 Room Air 05/10/18 14:04 68 15 108/80 100 Room Air 05/10/18 12:02 96.9 58 14 128/75 99 Room Air Intake and Output 05/10/18 05/11/18 19:00 07:00 Intake Total 1540 ml Output Total 0 ml Balance 0 ml 1540 ml Intake Oral 240 ml Other 1300 ml Output Urine Total 0 ml # Voids 1 2 # Bowel Movements 3 Laboratory Tests Test 05/10/18 12:14 05/10/18 15:00 05/10/18 23:45 05/11/18 08:10 White Blood Count 7.5 K/UL (4.8-10.8) 6.8 K/UL (4.8-10.8) 12.1 K/UL (4.8-10.8) #H 8.5 K/UL (4.8-10.8) Red Blood Count 5.03 M/UL (4.70-6.10) 5.07 M/UL (4.70-6.10) 4.54 M/UL (4.70-6.10) L 4.44 M/UL (4.70-6.10) L Hemoglobin 13.6 G/DL (14.2-18.0) L 13.9 G/DL (14.2-18.0) L 12.7 G/DL (14.2-18.0) L 12.3 G/DL (14.2-18.0) L Hematocrit 43.9 % (42.0-52.0) 43.0 % (42.0-52.0) 38.2 % (42.0-52.0) L 37.9 % (42.0-52.0) L Mean Corpuscular Volume 87 FL (80-99) 85 FL (80-99) 84 FL (80-99) 85 FL ( 80-99) Mean Corpuscular Hemoglobin 27.1 PG (27.0-31.0) 27.5 PG (27.0-31.0) 28.1 PG (27.0-31.0) 27.8 PG (27.0-31.0) Mean Corpuscular Hemoglobin Concent 31.1 G/DL (32.0-36.0) L 32.4 G/DL (32.0-36.0) 33.4 G/DL (32.0-36.0) 32.5 G/DL (32.0-36.0) Red Cell Distribution Width 14.2 % (11.6-14.8) 13.9 % (11.6-14.8) 13.7 % (11.6-14.8) 14.3 % (11.6-14.8) Platelet Count 205 K/UL (150-450) 203 K/UL (150-450) 200 K/UL (150-450) 209 K/UL (150-450) Mean Platelet Volume 6.6 FL (6.5-10.1) 6.4 FL (6.5-10.1) L 6.6 FL (6.5-10.1) 7.7 FL (6.5-10.1) Neutrophils (%) (Auto) 66.4 % (45.0-75.0) 67.9 % (45.0-75.0) % (45.0-75.0) 79.5 % (45.0-75.0) H Lymphocytes (%) (Auto) 21.4 % (20.0-45.0) 22.1 % (20.0-45.0) % (20.0-45.0) 11.9 % (20.0-45.0) L Monocytes (%) (Auto) 10.1 % (1.0-10.0) H 8.0 % (1.0-10.0) % (1.0-10.0) 8.1 % (1.0-10.0) Eosinophils (%) (Auto) 1.4 % (0.0-3.0) 1.4 % (0.0-3.0) % (0.0-3.0) 0.3 % (0.0-3.0) Basophils (%) (Auto) 0.8 % (0.0-2.0) 0.6 % (0.0-2.0) % (0.0-2.0) 0.2 % (0.0-2.0) Activated Partial Thromboplast Time 32 SEC (23-33) 28 SEC (23-33) Urine Color Pale yellow Urine Appearance Clear Urine pH 6.5 (4.5-8.0) Urine Specific [place] 1.005 (1.005-1.035) Urine Protein Negative (NEGATIVE) Urine Glucose (UA) Negative (NEGATIVE) Urine Ketones Negative (NEGATIVE) Urine Blood Negative (NEGATIVE) Urine Nitrite Negative (NEGATIVE) Urine Bilirubin Negative (NEGATIVE) Urine Urobilinogen Normal MG/DL (0.0-1.0) Urine Leukocyte Esterase Negative (NEGATIVE) Sodium Level 137 MMOL/L (136-145) 141 MMOL/L (136-145) Potassium Level 4.3 MMOL/L (3.5-5.1) 4.2 MMOL/L (3.5-5.1) Chloride Level 100 MMOL/L (98-107) 107 MMOL/L (98-107) Carbon Dioxide Level 29 MMOL/L (21-32) 28 MMOL/L (21-32) Anion Gap 8 mmol/L (5-15) 6 mmol/L (5-15) Blood Urea Nitrogen 23 mg/dL (7-18) H 28 mg/dL (7-18) H Creatinine 1.1 MG/DL (0.55-1.30) 1.0 MG/DL (0.55-1.30) Estimat Glomerular Filtration Rate mL/min (>60) mL/min (>60) Glucose Level 95 MG/DL (74-106) 122 MG/DL (74-106) H Calcium Level 9.4 MG/DL (8.5-10.1) 8.7 MG/DL (8.5-10.1) Total Bilirubin 0.5 MG/DL (0.2-1.0) Aspartate Amino Transf (AST/SGOT) 25 U/L (15-37) Alanine Aminotransferase (ALT/SGPT) 32 U/L (12-78) Alkaline Phosphatase 104 U/L (46-116) Troponin I 0.003 ng/mL (0.000-0.056) Total Protein 7.6 G/DL (6.4-8.2) Albumin 3.6 G/DL (3.4-5.0) Globulin 4.0 g/dL Albumin/Globulin Ratio 0.9 (1.0-2.7) L Lipase 128 U/L (73-393) Prothrombin Time 10.2 SEC (9.30-11.50) Prothromb Time International Ratio 1.0 (0.9-1.1) Height (Feet): 5 Height (Inches): 4.00 Weight (Pounds): 177 Medications Current Medications Medications (Trade) Dose Ordered Sig/Merry Route PRN Reason Start Time Stop Time Status Last Admin Dose Admin Acetaminophen (Tylenol) 650 mg Q4H PRN ORAL Mild Pain/Temp > 100.5 05/10/18 23:30 06/09/18 23:29 Atorvastatin Calcium (Lipitor) 40 mg BEDTIME ORAL 05/11/18 21:00 06/10/18 20:59 Bethanechol Chloride (Urecholine) 10 mg THREE TIMES A DAY ORAL 05/11/18 09:00 06/10/18 08:59 Calcium Carbonate (OsCal D) 1 tab DAILY ORAL 05/11/18 09:00 06/10/18 08:59 Dextrose/Sodium Chloride 1,000 ml @ 100 mls/hr Q10H IV 05/10/18 23:30 06/09/18 23:29 05/11/18 09:37 Docusate Sodium (Colace) 250 mg BID ORAL 05/11/18 09:00 06/10/18 08:59 Finasteride (Proscar) 5 mg DAILY ORAL 05/11/18 09:00 06/10/18 08:59 Fluticasone Propionate (Flonase) 1 spray TWICE A DAY NASAL 05/11/18 09:00 06/10/18 08:59 05/11/18 09:00 Iopamidol (Isovue-300 100ml) 100 ml NOW PRN INJ Radiology Procedure 05/10/18 11:45 Lactobacillus Acidophilus (Culturelle) 1 tab DAILY ORAL 05/11/18 09:00 06/10/18 08:59 Levothyroxine Sodium (Synthroid) 50 mcg DAILY@0630 ORAL 05/12/18 06:30 06/11/18 06:29 Montelukast Sodium (Singulair) 10 mg QPM ORAL 05/11/18 16:30 06/10/18 16:29 Morphine Sulfate (Morphine Sulfate) 2 mg TID PRN IVP Severe Pain (Pain Scale 7-10) 05/10/18 23:30 05/17/18 23:29 Multivitamins (Multivitamins) 1 tab DAILY ORAL 05/11/18 09:00 06/10/18 08:59 Pantoprazole (Protonix) 40 mg EVERY 12 HOURS IVP 05/11/18 09:00 06/10/18 08:59 05/11/18 08:12 Potassium Chloride (K-Dur) 20 meq DAILY ORAL 05/11/18 09:00 06/10/18 08:59 Sodium Chloride 500 ml @ 999 mls/hr Q31M PRN IV SBP < 95 05/10/18 23:30 06/09/18 23:29 05/10/18 23:57 Sodium Phosphate (Fleet's Sodium Phosl Enema) 133 ml ONCE RECTAL 05/11/18 11:00 05/11/18 12:00 05/11/18 11:00 Tamsulosin HCl (Flomax) 0.4 mg BEDTIME ORAL 05/11/18 21:00 3/31/19 20:59 Assessment/Plan Problem List: (1) Dementia with behavioral disturbance ICD Codes: F03.91 - Unspecified dementia with behavioral disturbance SNOMED: 3326533944527 (2) Acute metabolic encephalopathy ICD Codes: G93.41 - Metabolic encephalopathy SNOMED: 51032755, 329319279 Assessment/Plan remeron 15mg po qhs zyprexa 2.5mg po qam hall im Dang Jones MD May 11, 2018 11:23
[2018-05-11] MEDS ORDERED: Haloperidol 5mg/ml Inj IM SCH (11:45)
--- NOTE | 2018-05-11 13:22 | History & Physical ---
History and Physical History & Physicial hief Complaint: General Complaint, limited eval source: ER Attending chantal Present Illness HPIIs a 72-year-old male brought in by EMS after increased rectal bleeding. Patient was sent in from long-term. Patient noted to have bright red blood per rectum. Patient reports having a prior history of schizophrenia. He denies any current pain. Patient was noted to have previous oral anticoagulant use for atrial fibrillation. History is markedly limited by poor historian. Coded Allergies: FEXOFENADINE (Verified Allergy, Unknown, 05/10/18) Patient History Past Medical History: see triage record, AFib Reviewed Nursing Documentation: PMH: including Psych, afib ; PSxH: Agreed Review of Systems All Other Systems: limited - Poor historian Physical Exam Vital Signs Date Time Temp Pulse Resp B/P (MAP) Pulse Ox O2 Delivery O2 Flow Rate FiO2 05/10/18 11:14 97.5 62 19 124/82 95 Room Air Sp02 EP Interpretation: reviewed, normal General Appearance: normal inspection, well appearing, no apparent distress, alert Head: atraumatic ENT: normal ENT inspection, hearing grossly normal, normal voice Neck: normal inspection, full range of motion, supple, no bony tend Respiratory: normal inspection, lungs clear, normal breath sounds, no respiratory distress, no retraction, no wheezing Cardiovascular #1: regular rate, rhythm, no edema Gastrointestinal: normal inspection, normal bowel sounds, non tender, soft, no guarding, no hernia Rectal: other - gross blood Genitourinary: no CVA tenderness Musculoskeletal: normal inspection, back normal, normal range of motion Neurologic: normal inspection, alert, responsive, speech normal Psychiatric: mood/affect normal Skin: normal inspection, normal color, no rash A/P; 1- Acute LGIB 2- Afib on NOAC 3- Psych 4- BPH 5- HLP 6- GI-DVT prophylaxia Plan: GI and psych consults, Sidney Quintero MD May 11, 2018 13:22
--- NOTE | 2018-05-11 13:24 | Pre-Procedure Note/Attestation ---
Pre-Procedure Note/Attestation Complete Prior to Procedure Planned Procedure: not applicable Procedure Narrative: colonoscopy Indications for Procedure Pre-Operative Diagnosis: rectal bleed Attestation I attest that I discussed the nature of the procedure; its benefits; risks and complications; and alternatives (and the risks and benefits of such alternatives ), prior to the procedure, with the patient (or the patient's legal quality audit representative). I attest that, if there was a reasonable possibility of needing a blood transfusion, the patient (or the patient's legal quality audit representative) was given the [facility] standardized written summary, pursuant to the [place]don[place] Blood Safety Act ([place] Health and Safety Code # 1645, as amended). I attest that I re-evaluated the patient just prior to the surgery and that there has been no change in the patient's H&P, except as documented below: Shade Garza MD May 11, 2018 13:24
--- NOTE | 2018-05-11 13:25 | General Progress Note ---
Assessment/Plan Problem List: (1) Dementia with behavioral disturbance ICD Codes: F03.91 - Unspecified dementia with behavioral disturbance SNOMED: 4101767572592 (2) Lower GI bleed ICD Codes: K92.2 - Gastrointestinal hemorrhage, unspecified SNOMED: 30334585 Assessment/Plan plan colonoscopy for today Subjective ROS Limited/Unobtainable: Yes Allergies: Coded Allergies: FEXOFENADINE (Verified Allergy, Unknown, 05/10/18) Objective Last 24 Hour Vital Signs Date Time Temp Pulse Resp B/P (MAP) Pulse Ox O2 Delivery O2 Flow Rate FiO2 05/11/18 12:00 98.6 69 20 109/67 (81) 100 05/11/18 11:51 61 05/11/18 07:56 69 05/11/18 07:33 Room Air 05/11/18 07:32 98.6 68 20 137/75 (95) 100 05/11/18 04:00 79 05/11/18 04:00 98.6 86 20 115/75 (88) 100 05/11/18 00:00 75 05/11/18 00:00 98.6 80 17 101/70 (80) 98 05/10/18 21:00 Room Air 05/10/18 20:00 98.1 76 16 93/61 (72) 99 05/10/18 20:00 98 05/10/18 16:53 Room Air 05/10/18 16:10 78 22 Room Air 05/10/18 16:10 98.0 77 22 110/76 98 Room Air 78 05/10/18 15:15 96.3 72 16 119/89 98 Room Air 05/10/18 14:04 68 15 108/80 100 Room Air Intake and Output 05/10/18 05/11/18 19:00 07:00 Intake Total 1540 ml Output Total 0 ml Balance 0 ml 1540 ml Intake Oral 240 ml Other 1300 ml Output Urine Total 0 ml # Voids 1 2 # Bowel Movements 3 Laboratory Tests 05/10/18 15:00: White Blood Count 6.8, Red Blood Count 5.07, Hemoglobin 13.9L, Hematocrit 43.0, Mean Corpuscular Volume 85, Mean Corpuscular Hemoglobin 27.5, Mean Corpuscular Hemoglobin Concent 32.4, Red Cell Distribution Width 13.9, Platelet Count 203, Mean Platelet Volume 6.4L, Neutrophils (%) (Auto) 67.9, Lymphocytes (%) (Auto) 22.1, Monocytes (%) (Auto) 8.0, Eosinophils (%) (Auto) 1.4, Basophils (%) (Auto ) 0.6 05/10/18 23:45: White Blood Count 12.1#H, Red Blood Count 4.54L, Hemoglobin 12.7L, Hematocrit 38.2L, Mean Corpuscular Volume 84, Mean Corpuscular Hemoglobin 28.1, Mean Corpuscular Hemoglobin Concent 33.4, Red Cell Distribution Width 13.7, Platelet Count 200, Mean Platelet Volume 6.6, Neutrophils (%) (Auto) , Lymphocytes (%) ( Auto) , Monocytes (%) (Auto) , Eosinophils (%) (Auto) , Basophils (%) (Auto) 05/11/18 08:10: White Blood Count 8.5, Red Blood Count 4.44L, Hemoglobin 12.3L, Hematocrit 37.9L , Mean Corpuscular Volume 85, Mean Corpuscular Hemoglobin 27.8, Mean Corpuscular Hemoglobin Concent 32.5, Red Cell Distribution Width 14.3, Platelet Count 209, Mean Platelet Volume 7.7, Neutrophils (%) (Auto) 79.5H, Lymphocytes ( %) (Auto) 11.9L, Monocytes (%) (Auto) 8.1, Eosinophils (%) (Auto) 0.3, Basophils (%) (Auto) 0.2, Prothrombin Time 10.2, Prothromb Time International Ratio 1.0, Activated Partial Thromboplast Time 28, Sodium Level 141, Potassium Level 4.2, Chloride Level 107, Carbon Dioxide Level 28, Anion Gap 6, Blood Urea Nitrogen 28H, Creatinine 1.0, Estimat Glomerular Filtration Rate , Glucose Level 122H, Calcium Level 8.7 Height (Feet): 5 Height (Inches): 4.00 Weight (Pounds): 177 General Appearance: alert EENT: normal ENT inspection Neck: supple Cardiovascular: normal rate Respiratory/Chest: decreased breath sounds Abdomen: normal bowel sounds, non tender, soft Extremities: non-tender Shade Garza MD May 11, 2018 13:25
--- NOTE | 2018-05-11 13:26 | General Progress Note ---
Assessment/Plan Assessment/Plan S: I am ok O: poor historian, lack of orientation , Sp02 EP Interpretation: reviewed, normal General Appearance: normal inspection, well appearing, no apparent distress, alert Head: atraumatic ENT: normal ENT inspection, hearing grossly normal, normal voice Neck: normal inspection, full range of motion, supple, no bony tend Respiratory: normal inspection, lungs clear, normal breath sounds, no respiratory distress, no retraction, no wheezing Cardiovascular #1: regular rate, rhythm, no edema Gastrointestinal: normal inspection, normal bowel sounds, non tender, soft, no guarding, no hernia Rectal: other - gross blood Genitourinary: no CVA tenderness Musculoskeletal: normal inspection, back normal, normal range of motion Neurologic: normal inspection, alert, responsive, speech normal Psychiatric: mood/affect are flat Skin: normal inspection, normal color, no rash A/P; 1- Acute LGIB 2- Afib on NOAC 3- Psych 4- BPH 5- HLP 6- GI-DVT prophylaxia Plan: post Endoscopy, will consult cardio regarding continuation vs stopping ATC. Stable HH Subjective Allergies: Coded Allergies: FEXOFENADINE (Verified Allergy, Unknown, 05/10/18) Objective Last 24 Hour Vital Signs Date Time Temp Pulse Resp B/P (MAP) Pulse Ox O2 Delivery O2 Flow Rate FiO2 05/11/18 12:00 98.6 69 20 109/67 (81) 100 05/11/18 11:51 61 05/11/18 07:56 69 05/11/18 07:33 Room Air 05/11/18 07:32 98.6 68 20 137/75 (95) 100 05/11/18 04:00 79 05/11/18 04:00 98.6 86 20 115/75 (88) 100 05/11/18 00:00 75 05/11/18 00:00 98.6 80 17 101/70 (80) 98 05/10/18 21:00 Room Air 05/10/18 20:00 98.1 76 16 93/61 (72) 99 05/10/18 20:00 98 05/10/18 16:53 Room Air 05/10/18 16:10 78 22 Room Air 05/10/18 16:10 98.0 77 22 110/76 98 Room Air 78 05/10/18 15:15 96.3 72 16 119/89 98 Room Air 05/10/18 14:04 68 15 108/80 100 Room Air Intake and Output 05/10/18 05/11/18 19:00 07:00 Intake Total 1540 ml Output Total 0 ml Balance 0 ml 1540 ml Intake Oral 240 ml Other 1300 ml Output Urine Total 0 ml # Voids 1 2 # Bowel Movements 3 Laboratory Tests 05/10/18 15:00: White Blood Count 6.8, Red Blood Count 5.07, Hemoglobin 13.9L, Hematocrit 43.0, Mean Corpuscular Volume 85, Mean Corpuscular Hemoglobin 27.5, Mean Corpuscular Hemoglobin Concent 32.4, Red Cell Distribution Width 13.9, Platelet Count 203, Mean Platelet Volume 6.4L, Neutrophils (%) (Auto) 67.9, Lymphocytes (%) (Auto) 22.1, Monocytes (%) (Auto) 8.0, Eosinophils (%) (Auto) 1.4, Basophils (%) (Auto ) 0.6 05/10/18 23:45: White Blood Count 12.1#H, Red Blood Count 4.54L, Hemoglobin 12.7L, Hematocrit 38.2L, Mean Corpuscular Volume 84, Mean Corpuscular Hemoglobin 28.1, Mean Corpuscular Hemoglobin Concent 33.4, Red Cell Distribution Width 13.7, Platelet Count 200, Mean Platelet Volume 6.6, Neutrophils (%) (Auto) , Lymphocytes (%) ( Auto) , Monocytes (%) (Auto) , Eosinophils (%) (Auto) , Basophils (%) (Auto) 05/11/18 08:10: White Blood Count 8.5, Red Blood Count 4.44L, Hemoglobin 12.3L, Hematocrit 37.9L , Mean Corpuscular Volume 85, Mean Corpuscular Hemoglobin 27.8, Mean Corpuscular Hemoglobin Concent 32.5, Red Cell Distribution Width 14.3, Platelet Count 209, Mean Platelet Volume 7.7, Neutrophils (%) (Auto) 79.5H, Lymphocytes ( %) (Auto) 11.9L, Monocytes (%) (Auto) 8.1, Eosinophils (%) (Auto) 0.3, Basophils (%) (Auto) 0.2, Prothrombin Time 10.2, Prothromb Time International Ratio 1.0, Activated Partial Thromboplast Time 28, Sodium Level 141, Potassium Level 4.2, Chloride Level 107, Carbon Dioxide Level 28, Anion Gap 6, Blood Urea Nitrogen 28H, Creatinine 1.0, Estimat Glomerular Filtration Rate , Glucose Level 122H, Calcium Level 8.7 Height (Feet): 5 Height (Inches): 4.00 Weight (Pounds): 177 Sidney Moe MD May 11, 2018 13:26
[2018-05-11] MEDS ORDERED: Propofol 200mg/20ml IV ONE (13:30)
--- NOTE | 2018-05-11 13:36 | GI Progress Note ---
Assessment/Plan Problems: (1) Dementia with behavioral disturbance ICD Codes: F03.91 - Unspecified dementia with behavioral disturbance SNOMED: 8977432693447 (2) Lower GI bleed ICD Codes: K92.2 - Gastrointestinal hemorrhage, unspecified SNOMED: 13041502 Assessment/Plan patient needs colonoscopy for serve rectal bleed no family available to consent and patient is unable to sig Subjective Gastrointestinal/Abdominal: Reports: no symptoms Objective Last 24 Hour Vital Signs Date Time Temp Pulse Resp B/P (MAP) Pulse Ox O2 Delivery O2 Flow Rate FiO2 05/11/18 12:00 98.6 69 20 109/67 (81) 100 05/11/18 11:51 61 05/11/18 07:56 69 05/11/18 07:33 Room Air 05/11/18 07:32 98.6 68 20 137/75 (95) 100 05/11/18 04:00 79 05/11/18 04:00 98.6 86 20 115/75 (88) 100 05/11/18 00:00 75 05/11/18 00:00 98.6 80 17 101/70 (80) 98 05/10/18 21:00 Room Air 05/10/18 20:00 98.1 76 16 93/61 (72) 99 05/10/18 20:00 98 05/10/18 16:53 Room Air 05/10/18 16:10 78 22 Room Air 05/10/18 16:10 98.0 77 22 110/76 98 Room Air 78 05/10/18 15:15 96.3 72 16 119/89 98 Room Air 05/10/18 14:04 68 15 108/80 100 Room Air Intake and Output 05/10/18 05/11/18 19:00 07:00 Intake Total 1540 ml Output Total 0 ml Balance 0 ml 1540 ml Intake Oral 240 ml Other 1300 ml Output Urine Total 0 ml # Voids 1 2 # Bowel Movements 3 Laboratory Tests Test 05/10/18 15:00 05/10/18 23:45 05/11/18 08:10 White Blood Count 6.8 K/UL (4.8-10.8) 12.1 K/UL (4.8-10.8) #H 8.5 K/UL (4.8-10.8) Red Blood Count 5.07 M/UL (4.70-6.10) 4.54 M/UL (4.70-6.10) L 4.44 M/UL (4.70-6.10) L Hemoglobin 13.9 G/DL (14.2-18.0) L 12.7 G/DL (14.2-18.0) L 12.3 G/DL (14.2-18.0) L Hematocrit 43.0 % (42.0-52.0) 38.2 % (42.0-52.0) L 37.9 % (42.0-52.0) L Mean Corpuscular Volume 85 FL (80-99) 84 FL (80-99) 85 FL (80-99) Mean Corpuscular Hemoglobin 27.5 PG (27.0-31.0) 28.1 PG (27.0-31.0) 27.8 PG (27.0-31.0) Mean Corpuscular Hemoglobin Concent 32.4 G/DL (32.0-36.0) 33.4 G/DL (32.0-36.0) 32.5 G/DL (32.0-36.0) Red Cell Distribution Width 13.9 % (11.6-14.8) 13.7 % (11.6-14.8) 14.3 % (11.6-14.8) Platelet Count 203 K/UL (150-450) 200 K/UL (150-450) 209 K/UL (150-450) Mean Platelet Volume 6.4 FL (6.5-10.1) L 6.6 FL (6.5-10.1) 7.7 FL (6.5-10.1) Neutrophils (%) (Auto) 67.9 % (45.0-75.0) % (45.0-75.0) 79.5 % (45.0-75.0) H Lymphocytes (%) (Auto) 22.1 % (20.0-45.0) % (20.0-45.0) 11.9 % (20.0-45.0) L Monocytes (%) (Auto) 8.0 % (1.0-10.0) % (1.0-10.0) 8.1 % (1.0-10.0) Eosinophils (%) (Auto) 1.4 % (0.0-3.0) % (0.0-3.0) 0.3 % (0.0-3.0) Basophils (%) (Auto) 0.6 % (0.0-2.0) % (0.0-2.0) 0.2 % (0.0-2.0) Prothrombin Time 10.2 SEC (9.30-11.50) Prothromb Time International Ratio 1.0 (0.9-1.1) Activated Partial Thromboplast Time 28 SEC (23-33) Sodium Level 141 MMOL/L (136-145) Potassium Level 4.2 MMOL/L (3.5-5.1) Chloride Level 107 MMOL/L (98-107) Carbon Dioxide Level 28 MMOL/L (21-32) Anion Gap 6 mmol/L (5-15) Blood Urea Nitrogen 28 mg/dL (7-18) H Creatinine 1.0 MG/DL (0.55-1.30) Estimat Glomerular Filtration Rate mL/min (>60) Glucose Level 122 MG/DL (74-106) H Calcium Level 8.7 MG/DL (8.5-10.1) Height (Feet): 5 Height (Inches): 4.00 Weight (Pounds): 177 General Appearance: alert Cardiovascular: normal rate Respiratory/Chest: lungs clear Abdominal Exam: normal bowel sounds, non tender, soft Extremities: non-tender Shade Garza MD May 11, 2018 13:36
--- NOTE | 2018-05-11 14:12 | Immediate Post-Op Evaluation ---
Immediate Post-Op Evalulation Immediate Post-Op Evalulation Procedure: Colonoscopy Date of Evaluation: May 11, 2018 Time of Evaluation: 14:11 IV Fluids: 0.9 NS 100 ml Blood Pressure Systolic: 131 Blood Pressure Diastolic: 88 Pulse Rate: 68 Respiratory Rate: 16 O2 Sat by Pulse Oximetry: 100 Temperature (Fahrenheit): 97.4 Pain Score (1-10): 0 Nausea: No Vomiting: No Complications none Patient Status: reacts, patent Hydration Status: adequate Given Within 1 Hr of Incision: Elizabeth Mariscal CRNA May 11, 2018 14:12
--- NOTE | 2018-05-11 14:12 | Endoscopy Procedure Note ---
Endoscopy Procedure Note General Indication for Procedure: rectal bleed Procedures Performed: colonoscopy Operative Findings/Diagnosis: rectal mass Specimen: yes Pt Tolerated Procedure Well: Yes Estimated Blood Loss: none Anesthesia Anesthesiologist: noe Anesthesia: MAC Inserted Devices Implant(s) used?: No GI Core Measures 50 yrs or older w/o bx or poly: Not Applicable 10yrs. F/U not recommended: Not Applicable Shade Garza MD May 11, 2018 14:12
--- NOTE | 2018-05-11 14:30 | 48 Hour Post Anesthesia Eval ---
Post Anesthesia Evaluation Procedure: Colonoscopy Date of Evaluation: May 11, 2018 Time of Evaluation: 14:28 Blood Pressure Systolic: 109 0: 67 Pulse Rate: 69 Respiratory Rate: 20 Temperature (Fahrenheit): 98.6 O2 Sat by Pulse Oximetry: 100 Airway: patent Nausea: No Vomiting: No Pain Intensity: 0 Hydration Status: adequate Cardiopulmonary Status: stable Mental Status/LOC: patient returned to baseline Follow-up Care/Observations: per hospitalist Post-Anesthesia Complications: none Follow-up care needed: N/A Elizabeth Hernandez CRNA May 11, 2018 14:29
--- NOTE | 2018-05-11 16:08 | Consultation ---
History of Present Illness General Chief Complaint: General Complaint Referring physician: SANJUANITA Reason for Consultation: lower GI bleed Present Illness Allergies: Coded Allergies: FEXOFENADINE (Verified Allergy, Unknown, 05/10/18) Medication History Scheduled Apixaban (Eliquis), 5 MG PO BID, (Reported) Atorvastatin Calcium* (Atorvastatin Calcium*), 40 MG ORAL BEDTIME, (Reported) Bethanechol* (Bethanechol*), 10 MG ORAL THREE TIMES A DAY, (Reported) Calcium Carb & Cit/Vitamin D3 (Calcium + D3 Er Tablet), 1 EACH PO DAILY, ( Reported) Docusate Sodium* (Docusate Sodium*), 250 MG ORAL TWICE A DAY, (Reported) Finasteride* (Proscar*), 5 MG ORAL DAILY, (Reported) Fluticasone Propionate (Flonase Allergy Relief), 9.9 ML NS BID, (Reported) Furosemide* (Lasix*), 40 MG ORAL DAILY, (Reported) Lactobacillus Acidophilus (Acidophilus), 1 EACH PO DAILY, (Reported) Levothyroxine Sodium (Levothyroxine Sodium), 50 MCG ORAL DAILY, (Reported) Lorazepam* (Ativan*), 1 MG ORAL BID, (Reported) Metoprolol Tartrate* (Metoprolol Tartrate*), 50 MG ORAL EVERY 12 HOURS, ( Reported) Mirtazapine* (Mirtazapine*), 7.5 MG ORAL BEDTIME, (Reported) Montelukast Sodium* (Montelukast Sodium*), 10 MG ORAL BEDTIME, (Reported) Multivitamin With Minerals (Multivitamins With Minerals*), 1 TAB ORAL DAILY, ( Reported) Olanzapine* (Zyprexa*), 15 MG ORAL DAILY, (Reported) Pantoprazole (Pantoprazole), 40 MG ORAL DAILY, (Reported) Potassium Chloride* (K-Dur*), 20 MEQ ORAL DAILY, (Reported) Tamsulosin Hcl (Tamsulosin Hcl*), 0.4 MG ORAL BEDTIME, (Reported) Scheduled PRN Acetaminophen* (Acetaminophen 325MG Tablet*), 650 MG ORAL Q6H PRN for For Pain, (Reported) Patient History Healthcare decision maker [facility] Resuscitation status Full Code Advanced Directive on File No Physical Exam Last 24 Hour Vital Signs Date Time Temp Pulse Resp B/P (MAP) Pulse Ox O2 Delivery O2 Flow Rate FiO2 05/11/18 16:00 98.6 69 20 147/72 (97) 100 05/11/18 14:45 97.8 61 16 129/76 97 05/11/18 14:35 62 15 128/78 96 05/11/18 14:30 69 20 100 05/11/18 14:20 60 18 141/80 98 05/11/18 14:12 68 16 100 05/11/18 14:05 97.4 68 16 137/88 100 05/11/18 12:00 98.6 69 20 109/67 (81) 100 05/11/18 11:51 61 05/11/18 07:56 69 05/11/18 07:33 Room Air 05/11/18 07:32 98.6 68 20 137/75 (95) 100 05/11/18 04:00 79 05/11/18 04:00 98.6 86 20 115/75 (88) 100 05/11/18 00:00 75 05/11/18 00:00 98.6 80 17 101/70 (80) 98 05/10/18 21:00 Room Air 05/10/18 20:00 98.1 76 16 93/61 (72) 99 05/10/18 20:00 98 05/10/18 16:53 Room Air 05/10/18 16:10 78 22 Room Air 05/10/18 16:10 98.0 77 22 110/76 98 Room Air 78 Intake and Output 05/10/18 05/11/18 19:00 07:00 Intake Total 1540 ml Output Total 0 ml Balance 0 ml 1540 ml Intake Oral 240 ml Other 1300 ml Output Urine Total 0 ml # Voids 1 2 # Bowel Movements 3 Laboratory Tests Test 05/10/18 23:45 05/11/18 08:10 White Blood Count 12.1 K/UL (4.8-10.8) #H 8.5 K/UL (4.8-10.8) Red Blood Count 4.54 M/UL (4.70-6.10) L 4.44 M/UL (4.70-6.10) L Hemoglobin 12.7 G/DL (14.2-18.0) L 12.3 G/DL (14.2-18.0) L Hematocrit 38.2 % (42.0-52.0) L 37.9 % (42.0-52.0) L Mean Corpuscular Volume 84 FL (80-99) 85 FL (80-99) Mean Corpuscular Hemoglobin 28.1 PG (27.0-31.0) 27.8 PG (27.0-31.0) Mean Corpuscular Hemoglobin Concent 33.4 G/DL (32.0-36.0) 32.5 G/DL (32.0-36.0) Red Cell Distribution Width 13.7 % (11.6-14.8) 14.3 % (11.6-14.8) Platelet Count 200 K/UL (150-450) 209 K/UL (150-450) Mean Platelet Volume 6.6 FL (6.5-10.1) 7.7 FL (6.5-10.1) Neutrophils (%) (Auto) % (45.0-75.0) 79.5 % (45.0-75.0) H Lymphocytes (%) (Auto) % (20.0-45.0) 11.9 % (20.0-45.0) L Monocytes (%) (Auto) % (1.0-10.0) 8.1 % (1.0-10.0) Eosinophils (%) (Auto) % (0.0-3.0) 0.3 % (0.0-3.0) Basophils (%) (Auto) % (0.0-2.0) 0.2 % (0.0-2.0) Prothrombin Time 10.2 SEC (9.30-11.50) Prothromb Time International Ratio 1.0 (0.9-1.1) Activated Partial Thromboplast Time 28 SEC (23-33) Sodium Level 141 MMOL/L (136-145) Potassium Level 4.2 MMOL/L (3.5-5.1) Chloride Level 107 MMOL/L (98-107) Carbon Dioxide Level 28 MMOL/L (21-32) Anion Gap 6 mmol/L (5-15) Blood Urea Nitrogen 28 mg/dL (7-18) H Creatinine 1.0 MG/DL (0.55-1.30) Estimat Glomerular Filtration Rate mL/min (>60) Glucose Level 122 MG/DL (74-106) H Calcium Level 8.7 MG/DL (8.5-10.1) Height (Feet): 5 Height (Inches): 4.00 Weight (Pounds): 177 Medications Current Medications Medications (Trade) Dose Ordered Sig/Merry Route PRN Reason Start Time Stop Time Status Last Admin Dose Admin Acetaminophen (Tylenol) 650 mg Q4H PRN ORAL Mild Pain/Temp > 100.5 05/10/18 23:30 06/09/18 23:29 Atorvastatin Calcium (Lipitor) 40 mg BEDTIME ORAL 05/11/18 21:00 06/10/18 20:59 Bethanechol Chloride (Urecholine) 10 mg THREE TIMES A DAY ORAL 05/11/18 09:00 06/10/18 08:59 Calcium Carbonate (OsCal D) 1 tab DAILY ORAL 05/11/18 09:00 06/10/18 08:59 Dextrose/Sodium Chloride 1,000 ml @ 100 mls/hr Q10H IV 05/10/18 23:30 06/09/18 23:29 05/11/18 09:37 Docusate Sodium (Colace) 250 mg BID ORAL 05/11/18 09:00 06/10/18 08:59 Finasteride (Proscar) 5 mg DAILY ORAL 05/11/18 09:00 06/10/18 08:59 Fluticasone Propionate (Flonase) 1 spray TWICE A DAY NASAL 05/11/18 09:00 06/10/18 08:59 05/11/18 09:00 Haloperidol Lactate (Haldol) 5 mg Q6H PRN IM Agitation 05/11/18 17:30 06/10/18 17:29 Iopamidol (Isovue-300 100ml) 100 ml NOW PRN INJ Radiology Procedure 05/10/18 11:45 Lactobacillus Acidophilus (Culturelle) 1 tab DAILY ORAL 05/11/18 09:00 06/10/18 08:59 Levothyroxine Sodium (Synthroid) 50 mcg DAILY@0630 ORAL 05/12/18 06:30 06/11/18 06:29 Mirtazapine (Remeron) 15 mg BEDTIME ORAL 05/11/18 21:00 06/10/18 20:59 Montelukast Sodium (Singulair) 10 mg QPM ORAL 05/11/18 16:30 06/10/18 16:29 Morphine Sulfate (Morphine Sulfate) 2 mg TID PRN IVP Severe Pain (Pain Scale 7-10) 05/10/18 23:30 05/17/18 23:29 Multivitamins (Multivitamins) 1 tab DAILY ORAL 05/11/18 09:00 06/10/18 08:59 Olanzapine (ZyPREXA) 2.5 mg DAILY ORAL 05/12/18 09:00 06/11/18 08:59 Pantoprazole (Protonix) 40 mg EVERY 12 HOURS IVP 05/11/18 09:00 06/10/18 08:59 05/11/18 08:12 Potassium Chloride (K-Dur) 20 meq DAILY ORAL 05/11/18 09:00 06/10/18 08:59 Sodium Chloride 500 ml @ 999 mls/hr Q31M PRN IV SBP < 95 05/10/18 23:30 06/09/18 23:29 05/10/18 23:57 Tamsulosin HCl (Flomax) 0.4 mg BEDTIME ORAL 05/11/18 21:00 06/10/18 20:59 Assessment/Plan Assessment/Plan Hematology Consultation DAVION MD: Lou Moe DOS: 05/11/18 RFC: Rectal mass, anemia HPI 72-year-old male brought in by EMS after increased rectal bleeding. Patient was sent in from intermediate. Patient noted to have bright red blood per rectum. Patient reports having a prior history of schizophrenia. He denies any current pain. Patient was noted to have previous oral anticoagulant use for atrial fibrillation. History is markedly limited by poor historian. [place] was completed and oncology consulted. Allergies: FEXOFENADINE (Verified Allergy, Unknown, 05/10/18) Past Medical History: see triage record, AFib Reviewed Nursing Documentation: PMH: Agreed; PSxH: Agreed Review of Systems: limited - Poor historian Physical Exam Last 24 Hour Vital Signs Date Time Temp Pulse Resp B/P (MAP) Pulse Ox O2 Delivery O2 Flow Rate FiO2 05/11/18 16:00 98.6 69 20 147/72 (97) 100 05/11/18 14:45 97.8 61 16 129/76 97 05/11/18 14:35 62 15 128/78 96 05/11/18 14:30 69 20 100 05/11/18 14:20 60 18 141/80 98 05/11/18 14:12 68 16 100 05/11/18 14:05 97.4 68 16 137/88 100 05/11/18 12:00 98.6 69 20 109/67 (81) 100 05/11/18 11:51 61 05/11/18 07:56 69 05/11/18 07:33 Room Air 05/11/18 07:32 98.6 68 20 137/75 (95) 100 05/11/18 04:00 79 05/11/18 04:00 98.6 86 20 115/75 (88) 100 05/11/18 00:00 75 05/11/18 00:00 98.6 80 17 101/70 (80) 98 05/10/18 21:00 Room Air 05/10/18 20:00 98.1 76 16 93/61 (72) 99 05/10/18 20:00 98 05/10/18 16:53 Room Air Sp02 EP Interpretation: reviewed, normal General Appearance: normal inspection, well appearing Head: atraumatic ENT: normal ENT inspection, hearing grossly normal, normal voice Neck: normal inspection, full range of motion, supple, no bony tend Respiratory: normal inspection, lungs clear, normal breath sounds Cardiovascular: regular rate, rhythm, no edema Gastrointestinal: normal inspection Rectal: other - gross blood Genitourinary: no CVA tenderness Musculoskeletal: normal inspection Neurologic: normal inspection, alert Psychiatric: mood/affect normal Skin: normal inspection, normal color, no rash Laboratory Tests Test 05/10/18 23:45 05/11/18 08:10 White Blood Count 12.1 K/UL (4.8-10.8) #H 8.5 K/UL (4.8-10.8) Red Blood Count 4.54 M/UL (4.70-6.10) L 4.44 M/UL (4.70-6.10) L Hemoglobin 12.7 G/DL (14.2-18.0) L 12.3 G/DL (14.2-18.0) L Hematocrit 38.2 % (42.0-52.0) L 37.9 % (42.0-52.0) L Mean Corpuscular Volume 84 FL (80-99) 85 FL (80-99) Mean Corpuscular Hemoglobin 28.1 PG (27.0-31.0) 27.8 PG (27.0-31.0) Mean Corpuscular Hemoglobin Concent 33.4 G/DL (32.0-36.0) 32.5 G/DL (32.0-36.0) Red Cell Distribution Width 13.7 % (11.6-14.8) 14.3 % (11.6-14.8) Platelet Count 200 K/UL (150-450) 209 K/UL (150-450) Mean Platelet Volume 6.6 FL (6.5-10.1) 7.7 FL (6.5-10.1) Neutrophils (%) (Auto) % (45.0-75.0) 79.5 % (45.0-75.0) H Lymphocytes (%) (Auto) % (20.0-45.0) 11.9 % (20.0-45.0) L Monocytes (%) (Auto) % (1.0-10.0) 8.1 % (1.0-10.0) Eosinophils (%) (Auto) % (0.0-3.0) 0.3 % (0.0-3.0) Basophils (%) (Auto) % (0.0-2.0) 0.2 % (0.0-2.0) Prothrombin Time 10.2 SEC (9.30-11.50) Prothromb Time International Ratio 1.0 (0.9-1.1) Activated Partial Thromboplast Time 28 SEC (23-33) Sodium Level 141 MMOL/L (136-145) Potassium Level 4.2 MMOL/L (3.5-5.1) Chloride Level 107 MMOL/L (98-107) Carbon Dioxide Level 28 MMOL/L (21-32) Anion Gap 6 mmol/L (5-15) Blood Urea Nitrogen 28 mg/dL (7-18) H Creatinine 1.0 MG/DL (0.55-1.30) Estimat Glomerular Filtration Rate mL/min (>60) Glucose Level 122 MG/DL (74-106) H Calcium Level 8.7 MG/DL (8.5-10.1) Assessment and Recs: # Anemia due to rectal bleeding, potential rectal cancer, but need pathology report to confirm --> anemia panel has been reviewed and c/w aid --> iron iv has been started --> colo shows rectal mass --> may need eus for loco-regional staging --> may need further gi care, surg as well --> gi recs appreciated # Lower gi bleed --> s/p colo, final report pending # Dementia - likely chronic --> continue to monitor # Azotemia is likely due to dehydration --> administer ivf as needed The timing of this note does not necessarily reflect the time of the patient was seen. Greatly appreciate consultation! Dajuan Freedman MD May 11, 2018 16:08
[2018-05-11] MEDS ORDERED: Montelukast 10mg tablet ORAL SCH (16:30)
[2018-05-11] MEDS ORDERED: Sterile Water Irrig 1000ml IRRIG ONE (16:31)
[2018-05-11] MEDS ORDERED: NS 500ML ONE (16:31)
[2018-05-11] MEDS ORDERED: Haloperidol 5mg/ml Inj IM PRN (17:30)
--- NOTE | 2018-05-11 17:52 | NUR ---
HAND-OFF: Report given to KARSON ZENG RN.
[2018-05-11] MEDS ORDERED: Morphine Sulfate 2mg/ml Inj(IV/IM USE ONLY) IVP PRN (18:00)
--- NOTE | 2018-05-11 18:47 | NUR ---
NURSE NOTES: Patient transferred from Telemetry. Report received from JESSY Sanches for continuity of care. Belongings reviewed and accounted for.
[2018-05-11] MEDS ORDERED: Isovue-300 100ml vial INJ PRN (19:00)
--- NOTE | 2018-05-11 19:07 | NUR ---
NURSE NOTES: Per bag presser, Patient did not have urine output this shift. Patient bladder scanned with [address] Moe notified. New order received.
--- NOTE | 2018-05-11 19:09 | NUR ---
HAND-OFF: Report given to JESSY Youssef.
--- NOTE | 2018-05-11 19:15 | Procedure Note ---
DATE OF PROCEDURE: 05/11/2018 SURGEON: Shade Garza M.D. REFERRING PHYSICIAN: Sidney Moe M.D. PROCEDURE: Colonoscopy with biopsy. ANESTHESIA: Per Elizabeth CORBETT. INSTRUMENT: Olympus adult flexible colonoscope. INDICATION: Rectal bleeding. REASON FOR PROCEDURE: The procedure, risks, benefits, and possible consequences, including hemorrhage, aspiration, perforation and infection, and alternative treatments, were explained to the patient/legal guardian by Dr. Shade Garza and the patient/legal guardian understood and accepted these risks. PROCEDURE IN DETAIL: After informed consent was obtained and the patient was adequately sedated, first rectal exam was performed, which was normal. Then, the scope was the advanced from the rectum into the mid transverse colon. Given poor prep, we could not advance the scope beyond this point. The patient had evidence of significant diverticulosis in the left colon. Again, this examination was very limited because we could not see, as the prep was poor. There was a mass, an ulcerated mass in the rectum about 9 cm from the anal verge. This lesion roughly measured about 2 to 2.5 cm in size, ulcerative in nature, highly suspicious for adenocarcinoma. Multiple biopsy from this lesion was obtained. The patient tolerated the procedure very well without any complication. SUMMARY OF FINDINGS: 1. Rectal mass. See above for details. 2. Diverticulosis. 3. Poor colonic prep. RECOMMENDATIONS: Follow up biopsy results and treat accordingly. If the biopsies are consistent with adenocarcinoma, then we are going to try to get a consent for a CT with contrast for staging and the patient at that point would need a surgical evaluation and oncology evaluation. If the tumor has not metastasized, the patient also most probably will benefit from a rectal EUS for staging. We will wait for the biopsy to come back before we make all those decisions. Meanwhile, we are going to order a CEA level for this patient. I want to thank Dr. Moe for this kind referral. Shade Garza M.D. DR: LEILANI JOB#: [id number] CC:
[2018-05-11] MEDS ORDERED: Docusate 250mg cap ORAL SCH (20:00)
[2018-05-11] MEDS ORDERED: Flonase Nasal Inhaler 16gm NASAL SCH (20:00)
[2018-05-11] MEDS ORDERED: Bethanechol 10mg Tab ORAL SCH (20:00)
--- NOTE | 2018-05-11 20:30 | NUR ---
NURSE NOTES: Received patient awake,verbal,follows simple command,resting in bed without complaints. Indwelling hein catheter inserted as ordered.
[2018-05-11] MEDS: Atorvastatin 20mg tab ORAL SCH (20:35)
[2018-05-11] MEDS: Tamsulosin 0.4mg cap ORAL SCH (20:35)
[2018-05-11] MEDS: Pantoprazole Inj IVP SCH (20:35)
[2018-05-11] MEDS ORDERED: Tamsulosin 0.4mg cap ORAL SCH (21:00)
[2018-05-11] MEDS ORDERED: Atorvastatin 20mg tab ORAL SCH (21:00)
--- NOTE | 2018-05-11 23:00 | Consultation ---
DATE OF CONSULTATION: 05/11/2018 CONSULTING PHYSICIAN: ATTENDING PHYSICIAN: Sidney Moe M.D. REASON FOR CONSULTATION: Pressure ulcer prevention and skin checks. HISTORY OF PRESENT ILLNESS: This is a 72-year-old male who had rectal bleeding. He was admitted also for dementia and encephalopathy. PAST MEDICAL HISTORY: Depression and anxiety. He has hypertension and hypothyroidism. MEDICATIONS: Eliquis, atorvastatin, bethanechol, Proscar, Flonase, Lasix, levothyroxine, lorazepam, metoprolol, mirtazapine, Zyprexa, and tamsulosin. REVIEW OF SYSTEMS: This was obtained through electronic Medical Record. Difficult to get a full review of systems on communication with the patient.CONSTITUTIONAL: Has no weight loss, weight gain, or headaches. HEENT: The patient does not have ear, throat pain, or headache. CARDIOVASCULAR: No chest pain. CHEST: No shortness of breath. ABDOMINAL: The patient has had lower GI and rectal bleeding. NEUROMUSCULAR: The patient has no seizures. PHYSICAL EXAMINATION: VITAL SIGNS: The patient is afebrile with stable vitals. GENERAL: He is alert. HEENT: Pupils are equal, responsive to light. ABDOMEN: Soft, nontender, nondistended. ASSESSMENT: This is a 72-year-old gentleman with recent lower GI bleed. He also has difficulty caring for himself. He has difficulty turning or positioning himself and also he reports that he is unable to use the restroom by himself. RECOMMENDATIONS: 1. Turn and reposition the patient every two hours. 2. Also monitor and manage friction and shear. 3. Assess condition of the mattress and pressure reducing surfaces. 4. Keep linen dry and wrinkle free. 5. Moisturize skin daily. 6. Consider bowel and bladder programs including placing barrier cream to the buttocks area. 7. Nutritional consult to ensure adequate nutritional needs and monitor labs. Amanda Lucero M.D. DR: DAYANNA JOB#: [id number] CC: DARION
--- NOTE | 2018-05-12 00:03 | Cardiology Progress Note ---
Subjective Subjective The patient is seen and examined, full consult note is dictated. Objective Last 24 Hour Vital Signs Date Time Temp Pulse Resp B/P (MAP) Pulse Ox O2 Delivery O2 Flow Rate FiO2 05/11/18 21:23 Room Air 05/11/18 19:54 97.9 62 18 122/76 (91) 96 05/11/18 16:00 98.6 69 20 147/72 (97) 100 05/11/18 14:45 97.8 61 16 129/76 97 05/11/18 14:35 62 15 128/78 96 05/11/18 14:30 69 20 100 05/11/18 14:20 60 18 141/80 98 05/11/18 14:12 68 16 100 05/11/18 14:05 97.4 68 16 137/88 100 05/11/18 12:00 98.6 69 20 109/67 (81) 100 05/11/18 11:51 61 05/11/18 07:56 69 05/11/18 07:33 Room Air 05/11/18 07:32 98.6 68 20 137/75 (95) 100 05/11/18 04:00 79 05/11/18 04:00 98.6 86 20 115/75 (88) 100 Intake and Output 05/11/18 05/12/18 19:00 07:00 Intake Total 800 ml 300 ml Output Total 0 ml Balance 800 ml 300 ml IV Total 800 ml 300 ml Output Urine Total 0 ml Laboratory Tests Test 05/11/18 08:10 05/11/18 16:00 White Blood Count 8.5 K/UL (4.8-10.8) Red Blood Count 4.44 M/UL (4.70-6.10) L Hemoglobin 12.3 G/DL (14.2-18.0) L Hematocrit 37.9 % (42.0-52.0) L Mean Corpuscular Volume 85 FL (80-99) Mean Corpuscular Hemoglobin 27.8 PG (27.0-31.0) Mean Corpuscular Hemoglobin Concent 32.5 G/DL (32.0-36.0) Red Cell Distribution Width 14.3 % (11.6-14.8) Platelet Count 209 K/UL (150-450) Mean Platelet Volume 7.7 FL (6.5-10.1) Neutrophils (%) (Auto) 79.5 % (45.0-75.0) H Lymphocytes (%) (Auto) 11.9 % (20.0-45.0) L Monocytes (%) (Auto) 8.1 % (1.0-10.0) Eosinophils (%) (Auto) 0.3 % (0.0-3.0) Basophils (%) (Auto) 0.2 % (0.0-2.0) Prothrombin Time 10.2 SEC (9.30-11.50) Prothromb Time International Ratio 1.0 (0.9-1.1) Activated Partial Thromboplast Time 28 SEC (23-33) Sodium Level 141 MMOL/L (136-145) Potassium Level 4.2 MMOL/L (3.5-5.1) Chloride Level 107 MMOL/L (98-107) Carbon Dioxide Level 28 MMOL/L (21-32) Anion Gap 6 mmol/L (5-15) Blood Urea Nitrogen 28 mg/dL (7-18) H Creatinine 1.0 MG/DL (0.55-1.30) Estimat Glomerular Filtration Rate mL/min (>60) Glucose Level 122 MG/DL (74-106) H Calcium Level 8.7 MG/DL (8.5-10.1) Reticulocyte Count 0.9 % (0.0-2.0) Sickle Cell Screen Pending Soluble Transferrin Receptor Pending Laci Bell MD May 12, 2018 00:03
[2018-05-12 04:00] VITALS: BP 128/69
--- NOTE | 2018-05-12 04:15 | Consultation ---
DATE OF CONSULTATION: 05/11/2018 CONSULTING PHYSICIAN: Laci Bell M.D. REFERRING PHYSICIAN: Sidney Moe M.D. REASON FOR CONSULTATION: Management of atrial fibrillation. HISTORY OF PRESENT ILLNESS: The patient is a very unfortunate 72-year-old gentleman, who was brought in by paramedics for management of increased rectal bleeding. The patient is a resident of a nursing facility. He was noted to have bright red blood per rectum. He denies any abdominal pain; however, he was previously put on oral anticoagulation therapy. At the time of arrival to the hospital, blood pressure was 124/82 mmHg and heart rate of 62. A 12-lead electrocardiogram was significant for sinus rhythm with no acute ST and T-wave abnormalities. In the emergency department, the patient was given IV tranexamic acid due to brisk bleeding and the patient was then transferred to telemetry for further evaluation and management. Dr. Garza in GI consultation performed colonoscopy, which identified as evidence of rectal mass as well as diverticulosis. PAST MEDICAL HISTORY: 1. Paroxysmal atrial fibrillation, on apixaban. 2. Dyslipidemia. 3. BPH. 4. Hypothyroidism. 5. COPD/asthma. 6. History of GERD. 7. History of congestive heart failure. LIST OF MEDICATIONS: At the nursing facility including acetaminophen 650 q.6 h. p.r.n. pain, apixaban 5 mg p.o. twice daily, atorvastatin 40 mg p.o. q.h.s., bethanechol 10 mg p.o. three times a day, calcium and vitamin D3 one tablet daily, Colace 250 twice daily, Proscar 5 mg daily, Flonase 9.9 mL nasal spray twice daily, Lasix 40 mg daily, acidophilus one tablet daily, levothyroxine 50 mcg p.o. daily, lorazepam 1 mg p.o. twice daily, metoprolol 50 mg p.o. twice daily, mirtazapine 7.5 mg q.h.s., montelukast 10 mg p.o. q.h.s., multivitamin with mineral one tablet daily, Zyprexa 15 mg p.o. daily, pantoprazole 40 mg p.o. daily, potassium chloride 20 mEq p.o.daily, and tamsulosin 0.4 mg q.h.s. ALLERGIES: Fexofenadine. FAMILY HISTORY: No premature coronary artery disease or arrhythmogenic in first-degree relatives. SOCIAL HISTORY: He is a resident of a senior care facility. Denies any tobacco, alcohol, or illicit drug use. REVIEW OF SYSTEMS: HEENT: Denies any headache, diplopia, or blurred vision. CONSTITUTIONAL: Complains of generalized weakness, but no fever, chills, night sweats, or weight loss. CARDIOVASCULAR: Denies any chest pain, shortness of breath, PND, orthopnea, leg swelling, or syncope. PULMONARY: Denies any cough, hemoptysis, or wheezing. GASTROINTESTINAL: Complains of bright red blood per rectum. GENITOURINARY: Denies any hematuria, dysuria, or incontinence. NEUROLOGIC: Denies any motor dysfunction, sensory deficit, or altered speech. PSYCH: Prior history of schizophrenia. PHYSICAL EXAMINATION: VITAL SIGNS: Blood pressure is 124/82, pulse of 62, respirations 19, temperature 97.5 degrees Fahrenheit, and O2 saturation 95% on room air. GENERAL: This is a very unfortunate 72-year-old gentleman, in no apparent respiratory distress. Alert and oriented x4. HEENT: Atraumatic and normocephalic. Anicteric. Pupils are equal, round, and reactive to light and accommodation. Extraocular muscles intact. NECK: JVP less than 5 cm. No carotid bruits. Carotid upstrokes 2+ bilaterally. CARDIOVASCULAR: Normal S1, S2. Regular rate and rhythm. No murmurs, gallops, or rubs. PMI is at fourth intercostal space in the midclavicular line. LUNGS: Clear to auscultation bilaterally. ABDOMEN: Soft, nontender, and nondistended. No hepatosplenomegaly. Positive bowel sounds. EXTREMITIES: No evidence of edema, clubbing, or cyanosis. LABORATORY FINDINGS: Sodium was 137, potassium is 4.3, chloride 100, bicarbonate 29, BUN of 23, creatinine 1.1, glucose 95, and calcium 9.4. Troponin I was 0.003. WBC 6.8, hemoglobin 13.9, hematocrit of 42%, and platelet count is 203,000. CT of the abdomen and pelvis showed filling defects within the sigmoid colon and rectum, possible blood clot, colonic diverticulosis, and left renal cysts. Basilar pulmonary atelectatic changes, and bilateral small fat containing inguinal hernias. ASSESSMENT AND PLAN: The patient is a very unfortunate 80-year-old gentleman, seen in Cardiology consultation. 1. Paroxysmal atrial fibrillation. The patient's CHADS-VASc score for thromboembolic events based on age is considered to be 1 and therefore there is no indication for use of anticoagulation therapy in particular in this situation where the patient suffers from rectal mass and massive GI bleed. Apparently, the patient is in sinus rhythm. 2. History of lower GI bleeding due to possibly rectal mass versus diverticulosis. 3. History of schizophrenia. 4. History of hypothyroidism. 5. History of BPH. 6. History of GERD. 7. History of COPD/asthma. I would like to thank, Dr. Moe, for the courtesy of this consultation. Laci Bell M.D. DR: TYLER JOB#: [id number] CC:
[2018-05-12] MEDS: D5NS 1,000 ML IV SCH (05:41)
--- NOTE | 2018-05-12 07:13 | General Progress Note ---
Assessment/Plan Problem List: (1) Dementia with behavioral disturbance ICD Codes: F03.91 - Unspecified dementia with behavioral disturbance SNOMED: 1568528831559 (2) Lower GI bleed ICD Codes: K92.2 - Gastrointestinal hemorrhage, unspecified SNOMED: 95539834 (3) Rectal mass ICD Codes: K62.9 - Disease of anus and rectum, unspecified SNOMED: 091407376 Assessment/Plan SUMMARY OF FINDINGS: 1. Rectal mass. 2. Diverticulosis. 3. Poor colonic prep. RECOMMENDATIONS: Follow up biopsy results and treat accordingly. If the biopsies are consistent with adenocarcinoma, then we are going to try to get a consent for a CT with contrast for staging and the patient at that point would need a surgical evaluation and oncology evaluation. If the tumor has not metastasized, the patient also most probably will benefit from a rectal EUS for staging. We will wait for the biopsy to come back before we make all those decisions. Meanwhile, we are going to order a CEA level for this patient. Subjective ROS Limited/Unobtainable: Yes Allergies: Coded Allergies: FEXOFENADINE (Verified Allergy, Unknown, 05/10/18) Objective Last 24 Hour Vital Signs Date Time Temp Pulse Resp B/P (MAP) Pulse Ox O2 Delivery O2 Flow Rate FiO2 05/12/18 04:00 98.5 90 18 128/69 (88) 99 05/11/18 21:23 Room Air 05/11/18 19:54 97.9 62 18 122/76 (91) 96 05/11/18 16:00 98.6 69 20 147/72 (97) 100 05/11/18 14:45 97.8 61 16 129/76 97 05/11/18 14:35 62 15 128/78 96 05/11/18 14:30 69 20 100 05/11/18 14:20 60 18 141/80 98 05/11/18 14:12 68 16 100 05/11/18 14:05 97.4 68 16 137/88 100 05/11/18 12:00 98.6 69 20 109/67 (81) 100 05/11/18 11:51 61 05/11/18 07:56 69 05/11/18 07:33 Room Air 05/11/18 07:32 98.6 68 20 137/75 (95) 100 Intake and Output 05/11/18 05/12/18 18:59 06:59 Intake Total 800 ml 1000 ml Output Total 0 ml Balance 800 ml 1000 ml IV Total 800 ml 1000 ml Output Urine Total 0 ml Laboratory Tests 05/11/18 08:10: White Blood Count 8.5, Red Blood Count 4.44L, Hemoglobin 12.3L, Hematocrit 37.9L , Mean Corpuscular Volume 85, Mean Corpuscular Hemoglobin 27.8, Mean Corpuscular Hemoglobin Concent 32.5, Red Cell Distribution Width 14.3, Platelet Count 209, Mean Platelet Volume 7.7, Neutrophils (%) (Auto) 79.5H, Lymphocytes ( %) (Auto) 11.9L, Monocytes (%) (Auto) 8.1, Eosinophils (%) (Auto) 0.3, Basophils (%) (Auto) 0.2, Prothrombin Time 10.2, Prothromb Time International Ratio 1.0, Activated Partial Thromboplast Time 28, Sodium Level 141, Potassium Level 4.2, Chloride Level 107, Carbon Dioxide Level 28, Anion Gap 6, Blood Urea Nitrogen 28H, Creatinine 1.0, Estimat Glomerular Filtration Rate , Glucose Level 122H, Calcium Level 8.7 05/11/18 16:00: Reticulocyte Count 0.9, Sickle Cell Screen [Pending], Soluble Transferrin Receptor [Pending] Height (Feet): 5 Height (Inches): 4.00 Weight (Pounds): 177 General Appearance: alert EENT: normal ENT inspection Neck: supple Cardiovascular: normal rate Respiratory/Chest: lungs clear Abdomen: normal bowel sounds, non tender, soft Extremities: non-tender Shade Garza MD May 12, 2018 07:13
--- NOTE | 2018-05-12 07:40 | NUR ---
HAND-OFF: Report given to Haja Persaud RN.
--- NOTE | 2018-05-12 07:57 | NUR ---
NURSE NOTES: Received patient from Domonique RN, patient is up and out of bed, patient bed had been completely soiled, full bed change performed, patient is no sitting at bedside eating breakfast with some agitation, call light within reach and bed is locked and in lowest position, will continue to monitor.
[2018-05-12 08:00] VITALS: BP_SYST 111; BP_SYST 125; BP_DIAS 73; BP_DIAS 81
[2018-05-12] MEDS: Pantoprazole Inj IVP SCH ×2 (08:28→20:32)
[2018-05-12] MEDS: Bethanechol 10mg Tab ORAL SCH ×3 (08:29→17:13)
[2018-05-12] MEDS: OLANZapine 2.5mg tab ORAL SCH (08:29)
[2018-05-12] MEDS: Calcium Carbonate 500mg w/Vit D 200iu tab ORAL SCH (08:29)
[2018-05-12] MEDS: Lactobacillus-GG tablet ORAL SCH (08:29)
[2018-05-12] MEDS: Flonase Nasal Inhaler 16gm NASAL SCH ×2 (08:30→17:11)
[2018-05-12] MEDS: Docusate 250mg cap ORAL SCH ×2 (08:30→17:11)
[2018-05-12] MEDS ORDERED: OLANZapine 2.5mg tab ORAL SCH (09:00)
--- NOTE | 2018-05-12 09:20 | General Progress Note ---
Assessment/Plan Assessment/Plan S: I am ok, O: poor historian, lack of orientation, Sp02 EP Interpretation: reviewed, normal General Appearance: normal inspection, well appearing, no apparent distress, alert Head: atraumatic ENT: normal ENT inspection, hearing grossly normal, normal voice Neck: normal inspection, full range of motion, supple, no bony tend Respiratory: normal inspection, lungs clear, normal breath sounds, no respiratory distress, no retraction, no wheezing Cardiovascular #1: regular rate, rhythm, no edema Gastrointestinal: normal inspection, normal bowel sounds, non tender, soft, no guarding, no hernia Rectal: other - gross blood Genitourinary: no CVA tenderness Musculoskeletal: normal inspection, back normal, normal range of motion Neurologic: normal inspection, alert, responsive, speech normal Psychiatric: mood/affect are flat Skin: normal inspection, normal color, no rash A/P; 1- Acute LGIB : S/P Colonoscopy 2. Rectal Mass: New finding 2- Afib with controlled rate 3- Psych 4- BPH 5- HLP 6- GI-DVT prophylaxia Pending Bx of colon mass Ok to insert hein secondary to Bladder distention Subjective Allergies: Coded Allergies: FEXOFENADINE (Verified Allergy, Unknown, 05/10/18) Objective Last 24 Hour Vital Signs Date Time Temp Pulse Resp B/P (MAP) Pulse Ox O2 Delivery O2 Flow Rate FiO2 05/12/18 04:00 98.5 90 18 128/69 (88) 99 05/11/18 21:23 Room Air 05/11/18 19:54 97.9 62 18 122/76 (91) 96 05/11/18 16:00 98.6 69 20 147/72 (97) 100 05/11/18 14:45 97.8 61 16 129/76 97 05/11/18 14:35 62 15 128/78 96 05/11/18 14:30 69 20 100 05/11/18 14:20 60 18 141/80 98 05/11/18 14:12 68 16 100 05/11/18 14:05 97.4 68 16 137/88 100 05/11/18 12:00 98.6 69 20 109/67 (81) 100 05/11/18 11:51 61 Intake and Output 05/11/18 05/12/18 19:00 07:00 Intake Total 800 ml 1340 ml Output Total 0 ml 1200 ml Balance 800 ml 140 ml Intake Oral 340 ml IV Total 800 ml 1000 ml Output Urine Total 0 ml 1200 ml Laboratory Tests 05/11/18 16:00: Reticulocyte Count 0.9, Sickle Cell Screen [Pending], Soluble Transferrin Receptor [Pending] Height (Feet): 5 Height (Inches): 4.00 Weight (Pounds): 177 Sidney Moe MD May 12, 2018 09:20
[2018-05-12 12:00] VITALS: BP 138/84
--- NOTE | 2018-05-12 12:18 | Consultation ---
History of Present Illness General Reason for Hospitalization: General Complaint Present Illness HPI This is a 72-year-old male shelter resident who was admitted after being noted to have bright red blood per rectum. Patient states that when he noted the blood is very concerning and required evaluation. Recently patient had a colonoscopy by transmission calibration engineer which demonstrated a cancerous appearing mass 9 cm above the anal verge which was biopsied. Mass believed to be in the rectum. Surgery called to evaluate and assist with care and management. Patient seen patient evaluated patient examined. States that he is feeling well now and has not had bleeding since denies any abdominal pain denies any weight loss. Of note patient is a poor historian Allergies: Coded Allergies: FEXOFENADINE (Verified Allergy, Unknown, 05/10/18) Medication History Scheduled Apixaban (Eliquis), 5 MG PO BID, (Reported) Atorvastatin Calcium* (Atorvastatin Calcium*), 40 MG ORAL BEDTIME, (Reported) Bethanechol* (Bethanechol*), 10 MG ORAL THREE TIMES A DAY, (Reported) Calcium Carb & Cit/Vitamin D3 (Calcium + D3 Er Tablet), 1 EACH PO DAILY, ( Reported) Docusate Sodium* (Docusate Sodium*), 250 MG ORAL TWICE A DAY, (Reported) Finasteride* (Proscar*), 5 MG ORAL DAILY, (Reported) Fluticasone Propionate (Flonase Allergy Relief), 9.9 ML NS BID, (Reported) Furosemide* (Lasix*), 40 MG ORAL DAILY, (Reported) Lactobacillus Acidophilus (Acidophilus), 1 EACH PO DAILY, (Reported) Levothyroxine Sodium (Levothyroxine Sodium), 50 MCG ORAL DAILY, (Reported) Lorazepam* (Ativan*), 1 MG ORAL BID, (Reported) Metoprolol Tartrate* (Metoprolol Tartrate*), 50 MG ORAL EVERY 12 HOURS, ( Reported) Mirtazapine* (Mirtazapine*), 7.5 MG ORAL BEDTIME, (Reported) Montelukast Sodium* (Montelukast Sodium*), 10 MG ORAL BEDTIME, (Reported) Multivitamin With Minerals (Multivitamins With Minerals*), 1 TAB ORAL DAILY, ( Reported) Olanzapine* (Zyprexa*), 15 MG ORAL DAILY, (Reported) Pantoprazole (Pantoprazole), 40 MG ORAL DAILY, (Reported) Potassium Chloride* (K-Dur*), 20 MEQ ORAL DAILY, (Reported) Tamsulosin Hcl (Tamsulosin Hcl*), 0.4 MG ORAL BEDTIME, (Reported) Scheduled PRN Acetaminophen* (Acetaminophen 325MG Tablet*), 650 MG ORAL Q6H PRN for For Pain, (Reported) Patient History Limited by: medical condition History Provided By: Patient, Medical Record, PMD Healthcare decision maker [facility] Resuscitation status Full Code Advanced Directive on File No Past Medical/Surgical History Past Medical/Surgical History: (1) On continuous oral anticoagulation (2) Lower GI bleed (3) Dementia with behavioral disturbance (4) Acute metabolic encephalopathy (5) Rectal mass Review of Systems Review of Symptoms General ROS: no weight loss or fever Psychological ROS: no depression or mood changes, no memory loss Ophthalmic ROS: no visual changes or eye irritation ENT ROS: no nasal congestion, hearing loss, dizziness Allergy and Immunology ROS: no allergic symptoms or urticaria Hematological and Lymphatic ROS: no swollen glands, unusual bleeding or bruising Endocrine ROS: no polyuria, polydipsia, weight changes, temperature intolerance Respiratory ROS: no cough, shortness of breath, or wheezing Cardiovascular ROS: no chest pain or dyspnea on exertion Gastrointestinal ROS: denies abdominal pain, bright red blood in stool. Musculoskeletal ROS: no myalgias or arthralgias Neurological ROS: no TIA or stroke symptoms Dermatological ROS: no new or changing skin lesions, rashes or pruritis Physical Exam Physical Exam General appearance: alert, cooperative, no distress, appears stated age Head: Normocephalic, without obvious abnormality, atraumatic Eyes: conjunctivae/corneas clear. PERRL, EOM's intact. Fundi benign Throat: Lips, mucosa, and tongue normal. Teeth and gums normal Neck: supple, symmetrical, trachea midline, no adenopathy, thyroid: not enlarged, symmetric, no tenderness/mass/nodules, no carotid bruit and no JVD Lungs: clear to auscultation bilaterally Heart: regular rate and rhythm, S1, S2 normal, no murmur, click, rub or gallop Abdomen: soft, non-tender. Bowel sounds normal. No masses, no organomegaly Extremities: extremities normal, atraumatic, no cyanosis or edema Pulses: 2+ and symmetric Skin: Skin color, texture, turgor normal. No rashes or lesions Neurologic: Grossly normal Last 24 Hour Vital Signs Date Time Temp Pulse Resp B/P (MAP) Pulse Ox O2 Delivery O2 Flow Rate FiO2 05/12/18 08:30 Room Air 05/12/18 08:00 97.6 90 18 111/81 (91) 97 05/12/18 08:00 98.6 88 19 125/73 (90) 98 05/12/18 04:00 98.5 90 18 128/69 (88) 99 05/11/18 21:23 Room Air 05/11/18 19:54 97.9 62 18 122/76 (91) 96 05/11/18 16:00 98.6 69 20 147/72 (97) 100 05/11/18 14:45 97.8 61 16 129/76 97 05/11/18 14:35 62 15 128/78 96 05/11/18 14:30 69 20 100 05/11/18 14:20 60 18 141/80 98 05/11/18 14:12 68 16 100 05/11/18 14:05 97.4 68 16 137/88 100 Intake and Output 05/11/18 05/12/18 19:00 07:00 Intake Total 800 ml 1340 ml Output Total 0 ml 1200 ml Balance 800 ml 140 ml Intake Oral 340 ml IV Total 800 ml 1000 ml Output Urine Total 0 ml 1200 ml Laboratory Tests Test 05/11/18 16:00 Reticulocyte Count 0.9 % (0.0-2.0) Sickle Cell Screen Pending Soluble Transferrin Receptor Pending Height (Feet): 5 Height (Inches): 4.00 Weight (Pounds): 177 Medications Current Medications Medications (Trade) Dose Ordered Sig/Merry Route PRN Reason Start Time Stop Time Status Last Admin Dose Admin Acetaminophen (Tylenol) 650 mg Q4H PRN ORAL Mild Pain/Temp > 100.5 05/11/18 19:00 06/09/18 18:59 Atorvastatin Calcium (Lipitor) 40 mg BEDTIME ORAL 05/11/18 21:00 06/10/18 20:59 05/11/18 20:35 Bethanechol Chloride (Urecholine) 10 mg THREE TIMES A DAY ORAL 05/12/18 09:00 06/11/18 08:59 05/12/18 08:29 Calcium Carbonate (OsCal D) 1 tab DAILY ORAL 05/12/18 09:00 06/10/18 08:59 05/12/18 08:29 Dextrose/Sodium Chloride 1,000 ml @ 100 mls/hr Q10H IV 05/11/18 18:00 06/09/18 23:29 05/12/18 05:41 Docusate Sodium (Colace) 250 mg BID ORAL 05/12/18 09:00 06/11/18 08:59 Finasteride (Proscar) 5 mg DAILY ORAL 05/12/18 09:00 06/10/18 08:59 05/12/18 08:29 Fluticasone Propionate (Flonase) 1 spray TWICE A DAY NASAL 05/12/18 09:00 06/11/18 08:59 Haloperidol Lactate (Haldol) 5 mg Q6H PRN IM Agitation 05/11/18 19:00 06/10/18 18:59 Iopamidol (Isovue-300 100ml) 100 ml NOW PRN INJ Radiology Procedure 05/11/18 19:00 05/12/18 23:59 Lactobacillus Acidophilus (Culturelle) 1 tab DAILY ORAL 05/12/18 09:00 06/10/18 08:59 05/12/18 08:29 Levothyroxine Sodium (Synthroid) 50 mcg DAILY@0630 ORAL 05/12/18 06:30 06/11/18 06:29 05/12/18 05:41 Mirtazapine (Remeron) 15 mg BEDTIME ORAL 05/11/18 21:00 06/10/18 20:59 05/11/18 20:35 Montelukast Sodium (Singulair) 10 mg QPM ORAL 05/12/18 16:30 06/10/18 16:29 Morphine Sulfate (Morphine Sulfate) 2 mg Q8H PRN IVP Severe Pain (Pain Scale 7-10) 05/11/18 18:00 05/18/18 17:59 Multivitamins (Multivitamins) 1 tab DAILY ORAL 05/12/18 09:00 06/10/18 08:59 05/12/18 08:29 Olanzapine (ZyPREXA) 2.5 mg DAILY ORAL 05/12/18 09:00 06/11/18 08:59 05/12/18 08:29 Pantoprazole (Protonix) 40 mg EVERY 12 HOURS IVP 05/11/18 21:00 06/10/18 08:59 05/12/18 08:28 Potassium Chloride (K-Dur) 20 meq DAILY ORAL 05/12/18 09:00 06/10/18 08:59 05/12/18 08:28 Sodium Chloride 500 ml @ 999 mls/hr Q31M PRN IV SBP < 95 05/11/18 18:00 06/09/18 23:29 Tamsulosin HCl (Flomax) 0.4 mg BEDTIME ORAL 05/11/18 21:00 06/10/18 20:59 05/11/18 20:35 Assessment/Plan Problem List: (1) Rectal mass Assessment & Plan: This is a 72 male with recently diagnosed rectal mass likely carcinoma on colonoscopy after episode of bright red blood per rectum. GI notes appreciated oncology note appreciated. Mass not palpable on LUCAS Colonoscopy note noted Biopsy take. will await results Pelvic MRI thank you ICD Codes: K62.9 - Disease of anus and rectum, unspecified SNOMED: 370488721 Chuck Andrew May 12, 2018 12:18
[2018-05-12] MEDS ORDERED: Gadavist 7.5mMol/7.5ml vial IV PRN (12:30)
[2018-05-12 16:00] VITALS: BP 99/79
[2018-05-12] MEDS: Montelukast 10mg tablet ORAL SCH (16:43)
--- NOTE | 2018-05-12 19:23 | NUR ---
HAND-OFF: Report given to Domonique JIMÉNEZ.
--- NOTE | 2018-05-12 20:00 | NUR ---
NURSE NOTES: Received patient awake,verbal,confused,follows simple command,sitting in a chair.
--- NOTE | 2018-05-12 20:08 | General Progress Note ---
Assessment/Plan Problem List: (1) Dementia with behavioral disturbance ICD Codes: F03.91 - Unspecified dementia with behavioral disturbance SNOMED: 5657601705134 (2) Acute metabolic encephalopathy ICD Codes: G93.41 - Metabolic encephalopathy SNOMED: 31845620, 296133448 Assessment/Plan remeron 15mg po qhs zyprexa 2.5mg po qam haldol im prn Subjective Neurologic/Psychiatric: Reports: anxiety, emotional problems Allergies: Coded Allergies: FEXOFENADINE (Verified Allergy, Unknown, 05/10/18) Objective Last 24 Hour Vital Signs Date Time Temp Pulse Resp B/P (MAP) Pulse Ox O2 Delivery O2 Flow Rate FiO2 05/12/18 16:00 98.5 93 18 99/79 (86) 05/12/18 12:00 97.9 99 18 138/84 (102) 96 05/12/18 08:30 Room Air 05/12/18 08:00 97.6 90 18 111/81 (91) 97 05/12/18 08:00 98.6 88 19 125/73 (90) 98 05/12/18 04:00 98.5 90 18 128/69 (88) 99 05/11/18 21:23 Room Air Intake and Output 05/11/18 05/12/18 19:00 07:00 Intake Total 800 ml 1340 ml Output Total 0 ml 1200 ml Balance 800 ml 140 ml Intake Oral 340 ml IV Total 800 ml 1000 ml Output Urine Total 0 ml 1200 ml Height (Feet): 5 Height (Inches): 4.00 Weight (Pounds): 177 General Appearance: no apparent distress, alert, confused, agitated Dang Baumann MD May 12, 2018 20:08
[2018-05-12 20:15] VITALS: BP 131/70
[2018-05-12] MEDS: Atorvastatin 20mg tab ORAL SCH (20:32)
[2018-05-12] MEDS: Tamsulosin 0.4mg cap ORAL SCH (20:32)
--- NOTE | 2018-05-12 20:38 | Cardiology Progress Note ---
Assessment/Plan Assessment/Plan 1. Paroxysmal atrial fibrillation with RBBB, in sinus rhythm. No indication for use of anticoagulation therapy in particular in this situation where the patient suffers from rectal mass and massive GI bleed (CHADS-VASC score of 1) 2. History of lower GI bleeding due to possibly rectal mass versus diverticulosis. 3. History of schizophrenia. 4. History of hypothyroidism. 5. History of BPH. 6. History of GERD. 7. History of COPD/asthma. Subjective Subjective No cardiac events is reported. Objective Last 24 Hour Vital Signs Date Time Temp Pulse Resp B/P (MAP) Pulse Ox O2 Delivery O2 Flow Rate FiO2 05/12/18 16:00 98.5 93 18 99/79 (86) 05/12/18 12:00 97.9 99 18 138/84 (102) 96 05/12/18 08:30 Room Air 05/12/18 08:00 97.6 90 18 111/81 (91) 97 05/12/18 08:00 98.6 88 19 125/73 (90) 98 05/12/18 04:00 98.5 90 18 128/69 (88) 99 05/11/18 21:23 Room Air Intake and Output 05/11/18 05/12/18 19:00 07:00 Intake Total 800 ml 1340 ml Output Total 0 ml 1200 ml Balance 800 ml 140 ml Intake Oral 340 ml IV Total 800 ml 1000 ml Output Urine Total 0 ml 1200 ml Microbiology Date/Time Source Procedure Growth Status 05/10/18 16:00 Nasal Nares MRSA Culture - Final NO METHICILLIN RESISTANT STAPH AUREUS... Complete 05/10/18 16:00 Rectum VRE Culture - Final NO VANCOMYCIN RESISTANT ENTEROCOCCUS ... Complete 05/10/18 16:00 Rectum - Final NO CARBAPENEM-RESISTANT ENTEROBACTERI... Complete Objective HEENT: Atraumatic and normocephalic. Anicteric. Pupils are equal, round, and reactive to light and accommodation. Extraocular muscles intact. NECK: JVP less than 5 cm. No carotid bruits. Carotid upstrokes 2+ bilaterally. CARDIOVASCULAR: Normal S1, S2. Regular rate and rhythm. No murmurs, gallops, or rubs. PMI is at fourth intercostal space in the midclavicular line. LUNGS: Clear to auscultation bilaterally. ABDOMEN: Soft, nontender, and nondistended. No hepatosplenomegaly. Positive bowel sounds. EXTREMITIES: No evidence of edema, clubbing, or cyanosis. Laci Bell MD May 12, 2018 20:38
[2018-05-12] MEDS ORDERED: Zolpidem 5mg tab ORAL PRN ×2 (21:45)
[2018-05-13] VITALS: BP 137/80
[2018-05-13] MEDS: D5NS 1,000 ML IV SCH ×2 (03:01)
[2018-05-13 04:00] VITALS: BP 125/66
--- NOTE | 2018-05-13 07:00 | NUR ---
HAND-OFF: Report given to Haja Persaud RN.
--- NOTE | 2018-05-13 07:09 | NUR ---
NURSE NOTES: Received patient from Domonique RN, patient is in bed sleeping, no distress noted, bed is locked and in lowest position, call light within reach, will continue to monitor.
[2018-05-13 07:58] LABS: BASOPHILS % (AUTO) 0.5 % (0.0-2.0); HEMATOCRIT 31.3 % (42.0-52.0); HEMOGLOBIN 10.1 G/DL (14.2-18.0); LYMPHOCYTES % (AUTO) 26.4 % (20.0-45.0); MEAN CORPUSCULAR VOLUME 85 FL (80-99); MONOCYTES % (AUTO) 11.1 % (1.0-10.0); NEUTROPHILS % (AUTO) 59.1 % (45.0-75.0); PLATELET COUNT 158 K/UL (150-450); RED BLOOD COUNT 3.67 M/UL (4.70-6.10); RED CELL DISTRIBUTION WIDTH 14.3 % (11.6-14.8)
[2018-05-13 08:00] VITALS: BP 117/69
[2018-05-13] MEDS: Flonase Nasal Inhaler 16gm NASAL SCH ×2 (08:18→17:02)
[2018-05-13] MEDS: Docusate 250mg cap ORAL SCH ×2 (08:18→17:02)
[2018-05-13] MEDS: Lactobacillus-GG tablet ORAL SCH (08:23)
[2018-05-13] MEDS: Calcium Carbonate 500mg w/Vit D 200iu tab ORAL SCH (08:23)
[2018-05-13] MEDS: Pantoprazole Inj IVP SCH (08:24)
[2018-05-13] MEDS: Bethanechol 10mg Tab ORAL SCH ×3 (08:24→17:03)
[2018-05-13] MEDS: OLANZapine 2.5mg tab ORAL SCH (08:24)
--- NOTE | 2018-05-13 09:26 | General Progress Note ---
Assessment/Plan Problem List: (1) Dementia with behavioral disturbance ICD Codes: F03.91 - Unspecified dementia with behavioral disturbance SNOMED: 4054681212918 (2) Lower GI bleed ICD Codes: K92.2 - Gastrointestinal hemorrhage, unspecified SNOMED: 23141498 (3) Rectal mass ICD Codes: K62.9 - Disease of anus and rectum, unspecified SNOMED: 220079802 Assessment/Plan SUMMARY OF FINDINGS: 1. Rectal mass. 2. Diverticulosis. 3. Poor colonic prep. RECOMMENDATIONS: Follow up biopsy results and treat accordingly. If the biopsies are consistent with adenocarcinoma, then we are going to try to get a consent for a CT with contrast for staging and the patient at that point would need a surgical evaluation and oncology evaluation. If the tumor has not metastasized, the patient also most probably will benefit from a rectal EUS for staging. We will wait for the biopsy to come back before we make all those decisions. Meanwhile, we are going to order a CEA level for this patient. Subjective ROS Limited/Unobtainable: No Allergies: Coded Allergies: FEXOFENADINE (Verified Allergy, Unknown, 05/10/18) Objective Last 24 Hour Vital Signs Date Time Temp Pulse Resp B/P (MAP) Pulse Ox O2 Delivery O2 Flow Rate FiO2 05/13/18 08:00 98.7 73 18 117/69 (85) 97 05/13/18 04:00 97.5 66 20 125/66 (85) 97 05/13/18 00:00 97.7 78 20 137/80 (99) 96 05/12/18 21:00 Room Air 05/12/18 20:15 96.8 82 16 131/70 (90) 98 05/12/18 16:00 98.5 93 18 99/79 (86) 05/12/18 12:00 97.9 99 18 138/84 (102) 96 Intake and Output 05/12/18 05/13/18 18:59 06:59 Intake Total 880 ml 1420 ml Output Total 1300 ml 3500 ml Balance -420 ml -2080 ml Intake Oral 780 ml 320 ml IV Total 100 ml 1100 ml Output Urine Total 1300 ml 3500 ml # Bowel Movements 4 Laboratory Tests 05/13/18 06:20: White Blood Count 5.0, Red Blood Count 3.67L, Hemoglobin 10.1L, Hematocrit 31.3L , Mean Corpuscular Volume 85, Mean Corpuscular Hemoglobin 27.4, Mean Corpuscular Hemoglobin Concent 32.1, Red Cell Distribution Width 14.3, Platelet Count 158, Mean Platelet Volume 7.6, Neutrophils (%) (Auto) 59.1, Lymphocytes (% ) (Auto) 26.4, Monocytes (%) (Auto) 11.1H, Eosinophils (%) (Auto) 3.0, Basophils (%) (Auto) 0.5 Height (Feet): 5 Height (Inches): 4.00 Weight (Pounds): 177 General Appearance: no apparent distress EENT: normal ENT inspection Neck: supple Cardiovascular: normal rate Respiratory/Chest: decreased breath sounds Abdomen: normal bowel sounds, non tender, soft Extremities: non-tender Shade Garza MD May 13, 2018 09:25
--- NOTE | 2018-05-13 11:17 | General Progress Note ---
Assessment/Plan Assessment/Plan Assessment and Recs: # Rectal mass noted on colonoscopy, current CT a/p with contrast shows no distant mets --> final pathology to confirm adenoca pending --> Gi noted and surg recs appreciated --> anemia panel has been reviewed and c/w aid --> iron iv continue x 5 days --> may need eus for loco-regional staging, such as mri --> may need further gi care, surg as well --> gi recs appreciated # Anemia due to gi bleed --> anemia full panel pending # Lower gi bleed due likely to rectal mass --> final path pending # Dementia - likely chronic --> continue to monitor # Azotemia is likely due to dehydration --> administer ivf as needed The timing of this note does not necessarily reflect the time of the patient was seen. Greatly appreciate consultation! Subjective Allergies: Coded Allergies: FEXOFENADINE (Verified Allergy, Unknown, 05/10/18) Subjective 3/3: reviewed gi recs and cea is pending at the moment, result sof rectal mass bx pending, surg eval prn Objective Last 24 Hour Vital Signs Date Time Temp Pulse Resp B/P (MAP) Pulse Ox O2 Delivery O2 Flow Rate FiO2 05/13/18 08:30 Room Air 05/13/18 08:00 98.7 73 18 117/69 (85) 97 05/13/18 04:00 97.5 66 20 125/66 (85) 97 05/13/18 00:00 97.7 78 20 137/80 (99) 96 05/12/18 21:00 Room Air 05/12/18 20:15 96.8 82 16 131/70 (90) 98 05/12/18 16:00 98.5 93 18 99/79 (86) 05/12/18 12:00 97.9 99 18 138/84 (102) 96 Intake and Output 05/12/18 05/13/18 18:59 06:59 Intake Total 880 ml 1420 ml Output Total 1300 ml 3500 ml Balance -420 ml -2080 ml Intake Oral 780 ml 320 ml IV Total 100 ml 1100 ml Output Urine Total 1300 ml 3500 ml # Bowel Movements 4 Laboratory Tests 05/13/18 06:20: White Blood Count 5.0, Red Blood Count 3.67L, Hemoglobin 10.1L, Hematocrit 31.3L , Mean Corpuscular Volume 85, Mean Corpuscular Hemoglobin 27.4, Mean Corpuscular Hemoglobin Concent 32.1, Red Cell Distribution Width 14.3, Platelet Count 158, Mean Platelet Volume 7.6, Neutrophils (%) (Auto) 59.1, Lymphocytes (% ) (Auto) 26.4, Monocytes (%) (Auto) 11.1H, Eosinophils (%) (Auto) 3.0, Basophils (%) (Auto) 0.5 Height (Feet): 5 Height (Inches): 4.00 Weight (Pounds): 177 Objective General Appearance: normal inspection, well appearing Head: atraumatic ENT: normal ENT inspection, hearing grossly normal, normal voice Neck: normal inspection, full range of motion, supple Respiratory: normal inspection, lungs clear, normal breath sounds Cardiovascular: regular rate, rhythm, no edema Gastrointestinal: normal inspection Rectal: other - gross blood Genitourinary: no CVA tenderness Musculoskeletal: normal inspection Neurologic: normal inspection, alert Psychiatric: mood/affect normal Skin: normal inspection, normal color, no rash Dajuan Freedman MD May 13, 2018 11:17
[2018-05-13 11:39] LABS: % IRON SATURATION 10 % (15-50); IRON 20 ug/dL (50-175); TOTAL IRON BINDING CAPACITY 194 ug/dL (250-450)
[2018-05-13 11:52] LABS: FERRITIN 28 NG/ML (8-388)
[2018-05-13 12:00] VITALS: BP 132/77
--- NOTE | 2018-05-13 12:59 | General Progress Note ---
Assessment/Plan Assessment/Plan S: I am ok, O: poor historian, lack of orientation,lying on bed Sp02 EP Interpretation: reviewed, normal General Appearance: normal inspection, well appearing, no apparent distress, alert Head: atraumatic ENT: normal ENT inspection, hearing grossly normal, normal voice Neck: normal inspection, full range of motion, supple, no bony tend Respiratory: normal inspection, lungs clear, normal breath sounds, no respiratory distress, no retraction, no wheezing Cardiovascular #1: regular rate, rhythm, no edema Gastrointestinal: normal inspection, normal bowel sounds, non tender, soft, no guarding, no hernia Rectal: other - gross blood Genitourinary: no CVA tenderness Musculoskeletal: normal inspection, back normal, normal range of motion Neurologic: normal inspection, alert, responsive, speech normal Psychiatric: mood/affect are flat Skin: normal inspection, normal color, no rash A/P; 1- Acute LGIB : S/P Colonoscopy 2. Rectal Mass: New finding 2- Afib with controlled rate 3- Psych 4- BPH 5- HLP 6- GI-DVT prophylaxia Pending Bx of colon mass Ok to insert hein secondary to Bladder distention Subjective Allergies: Coded Allergies: FEXOFENADINE (Verified Allergy, Unknown, 05/10/18) Objective Last 24 Hour Vital Signs Date Time Temp Pulse Resp B/P (MAP) Pulse Ox O2 Delivery O2 Flow Rate FiO2 05/13/18 12:00 97.4 71 18 132/77 (95) 98 05/13/18 08:30 Room Air 05/13/18 08:00 98.7 73 18 117/69 (85) 97 05/13/18 04:00 97.5 66 20 125/66 (85) 97 05/13/18 00:00 97.7 78 20 137/80 (99) 96 05/12/18 21:00 Room Air 05/12/18 20:15 96.8 82 16 131/70 (90) 98 05/12/18 16:00 98.5 93 18 99/79 (86) Intake and Output 05/12/18 05/13/18 19:00 07:00 Intake Total 880 ml 1520 ml Output Total 1300 ml 3500 ml Balance -420 ml -1980 ml Intake Oral 780 ml 320 ml IV Total 100 ml 1200 ml Output Urine Total 1300 ml 3500 ml # Bowel Movements 4 Laboratory Tests 05/13/18 06:20: White Blood Count 5.0, Red Blood Count 3.67L, Hemoglobin 10.1L, Hematocrit 31.3L , Mean Corpuscular Volume 85, Mean Corpuscular Hemoglobin 27.4, Mean Corpuscular Hemoglobin Concent 32.1, Red Cell Distribution Width 14.3, Platelet Count 158, Mean Platelet Volume 7.6, Neutrophils (%) (Auto) 59.1, Lymphocytes (% ) (Auto) 26.4, Monocytes (%) (Auto) 11.1H, Eosinophils (%) (Auto) 3.0, Basophils (%) (Auto) 0.5, Iron Level 20L, Total Iron Binding Capacity 194L, Percent Iron Saturation 10L, Unsaturated Iron Binding 174, Ferritin 28 Height (Feet): 5 Height (Inches): 4.00 Weight (Pounds): 177 Sidney Moe MD May 13, 2018 12:59
--- NOTE | 2018-05-13 13:17 | Surgery Progress Note ---
Surgery Progress Note Subjective Additional Comments no acute events. comfortable. resting Objective Last 24 Hour Vital Signs Date Time Temp Pulse Resp B/P (MAP) Pulse Ox O2 Delivery O2 Flow Rate FiO2 05/13/18 12:00 97.4 71 18 132/77 (95) 98 05/13/18 08:30 Room Air 05/13/18 08:00 98.7 73 18 117/69 (85) 97 05/13/18 04:00 97.5 66 20 125/66 (85) 97 05/13/18 00:00 97.7 78 20 137/80 (99) 96 05/12/18 21:00 Room Air 05/12/18 20:15 96.8 82 16 131/70 (90) 98 05/12/18 16:00 98.5 93 18 99/79 (86) I&O Intake and Output 05/12/18 05/13/18 19:00 07:00 Intake Total 880 ml 1520 ml Output Total 1300 ml 3500 ml Balance -420 ml -1980 ml Intake Oral 780 ml 320 ml IV Total 100 ml 1200 ml Output Urine Total 1300 ml 3500 ml # Bowel Movements 4 Drains: none Cardiovascular: RSR Respiratory: clear Abdomen: soft, flat, non-tender, non-distended Extremities: no tenderness, no cyanosis Laboratory Tests Test 05/13/18 06:20 White Blood Count 5.0 K/UL (4.8-10.8) Red Blood Count 3.67 M/UL (4.70-6.10) L Hemoglobin 10.1 G/DL (14.2-18.0) L Hematocrit 31.3 % (42.0-52.0) L Mean Corpuscular Volume 85 FL (80-99) Mean Corpuscular Hemoglobin 27.4 PG (27.0-31.0) Mean Corpuscular Hemoglobin Concent 32.1 G/DL (32.0-36.0) Red Cell Distribution Width 14.3 % (11.6-14.8) Platelet Count 158 K/UL (150-450) Mean Platelet Volume 7.6 FL (6.5-10.1) Neutrophils (%) (Auto) 59.1 % (45.0-75.0) Lymphocytes (%) (Auto) 26.4 % (20.0-45.0) Monocytes (%) (Auto) 11.1 % (1.0-10.0) H Eosinophils (%) (Auto) 3.0 % (0.0-3.0) Basophils (%) (Auto) 0.5 % (0.0-2.0) Iron Level 20 ug/dL (50-175) L Total Iron Binding Capacity 194 ug/dL (250-450) L Percent Iron Saturation 10 % (15-50) L Unsaturated Iron Binding 174 ug/dL (112-346) Ferritin 28 NG/ML (8-388) Plan Problems: (1) Rectal mass Assessment & Plan: This is a 72 male with recently diagnosed rectal mass likely carcinoma on colonoscopy after episode of bright red blood per rectum. GI notes appreciated oncology note appreciated. Mass not palpable on LUCAS Colonoscopy note noted Biopsy take. will await results Awaiting path results Pelvic MRI Heme/onc eval thank you Chuck Andrew May 13, 2018 13:17
[2018-05-13 16:00] VITALS: BP 116/69
[2018-05-13] MEDS: Montelukast 10mg tablet ORAL SCH (17:03)
--- NOTE | 2018-05-13 19:16 | NUR ---
HAND-OFF: Report given to Domonique JIMÉNEZ.
--- NOTE | 2018-05-13 19:17 | NUR ---
NURSE NOTES: RN called next of kin to obtain consent for contrast for MRI, unable to reach next of kin.
[2018-05-13 20:00] VITALS: BP 114/69
--- NOTE | 2018-05-13 20:00 | NUR ---
NURSE NOTES: Received patient awake,verbal,confused,resting in bed.
--- NOTE | 2018-05-13 20:53 | Cardiology Progress Note ---
Assessment/Plan Assessment/Plan 1. Paroxysmal atrial fibrillation with RBBB, in sinus rhythm. No indication for use of anticoagulation therapy in particular in this situation where the patient suffers from rectal mass and massive GI bleed (CHADS-VASC score of 1) 2. History of lower GI bleeding due to possibly rectal mass versus diverticulosis. 3. History of schizophrenia. 4. History of hypothyroidism. 5. History of BPH. 6. History of GERD. 7. History of COPD/asthma. Subjective Subjective Denies chest pain or SOB. Objective Last 24 Hour Vital Signs Date Time Temp Pulse Resp B/P (MAP) Pulse Ox O2 Delivery O2 Flow Rate FiO2 05/13/18 16:00 98.9 86 17 116/69 (85) 97 05/13/18 12:00 97.4 71 18 132/77 (95) 98 05/13/18 08:30 Room Air 05/13/18 08:00 98.7 73 18 117/69 (85) 97 05/13/18 04:00 97.5 66 20 125/66 (85) 97 05/13/18 00:00 97.7 78 20 137/80 (99) 96 05/12/18 21:00 Room Air Intake and Output 05/12/18 05/13/18 19:00 07:00 Intake Total 880 ml 1520 ml Output Total 1300 ml 3500 ml Balance -420 ml -1980 ml Intake Oral 780 ml 320 ml IV Total 100 ml 1200 ml Output Urine Total 1300 ml 3500 ml # Bowel Movements 4 Laboratory Tests Test 05/13/18 06:20 White Blood Count 5.0 K/UL (4.8-10.8) Red Blood Count 3.67 M/UL (4.70-6.10) L Hemoglobin 10.1 G/DL (14.2-18.0) L Hematocrit 31.3 % (42.0-52.0) L Mean Corpuscular Volume 85 FL (80-99) Mean Corpuscular Hemoglobin 27.4 PG (27.0-31.0) Mean Corpuscular Hemoglobin Concent 32.1 G/DL (32.0-36.0) Red Cell Distribution Width 14.3 % (11.6-14.8) Platelet Count 158 K/UL (150-450) Mean Platelet Volume 7.6 FL (6.5-10.1) Neutrophils (%) (Auto) 59.1 % (45.0-75.0) Lymphocytes (%) (Auto) 26.4 % (20.0-45.0) Monocytes (%) (Auto) 11.1 % (1.0-10.0) H Eosinophils (%) (Auto) 3.0 % (0.0-3.0) Basophils (%) (Auto) 0.5 % (0.0-2.0) Iron Level 20 ug/dL (50-175) L Total Iron Binding Capacity 194 ug/dL (250-450) L Percent Iron Saturation 10 % (15-50) L Unsaturated Iron Binding 174 ug/dL (112-346) Ferritin 28 NG/ML (8-388) Objective HEENT: Atraumatic and normocephalic. Anicteric. Pupils are equal, round, and reactive to light and accommodation. Extraocular muscles intact. NECK: JVP less than 5 cm. No carotid bruits. Carotid upstrokes 2+ bilaterally. CARDIOVASCULAR: Normal S1, S2. Regular rate and rhythm. No murmurs, gallops, or rubs. PMI is at fourth intercostal space in the midclavicular line. LUNGS: Clear to auscultation bilaterally. ABDOMEN: Soft, nontender, and nondistended. No hepatosplenomegaly. Positive bowel sounds. EXTREMITIES: No evidence of edema, clubbing, or cyanosis. Laci Bell MD May 13, 2018 20:53
[2018-05-13] MEDS: Tamsulosin 0.4mg cap ORAL SCH (21:17)
[2018-05-13] MEDS: Atorvastatin 20mg tab ORAL SCH (21:18)
[2018-05-13] MEDS: Miralax 17gm pkt ORAL SCH (21:18)
[2018-05-14 04:00] VITALS: BP 137/75
--- NOTE | 2018-05-14 04:02 | NUR ---
NURSE NOTES: Patient pulled off both of his IV access and refused to be reinserted.
--- NOTE | 2018-05-14 07:33 | NUR ---
HAND-OFF: Report given to Fahad Ching RN.
[2018-05-14] MEDS: OLANZapine 2.5mg tab ORAL SCH (09:14)
[2018-05-14] MEDS: Lactobacillus-GG tablet ORAL SCH (09:14)
[2018-05-14] MEDS: Bethanechol 10mg Tab ORAL SCH ×3 (09:14→18:29)
[2018-05-14] MEDS: Calcium Carbonate 500mg w/Vit D 200iu tab ORAL SCH (09:14)
[2018-05-14] MEDS: Docusate 250mg cap ORAL SCH ×2 (09:15→18:29)
[2018-05-14] MEDS: Flonase Nasal Inhaler 16gm NASAL SCH ×2 (09:15→18:29)
--- NOTE | 2018-05-14 11:13 | GI Progress Note ---
Assessment/Plan Problems: (1) Rectal mass ICD Codes: K62.9 - Disease of anus and rectum, unspecified SNOMED: 987829770 (2) Dementia with behavioral disturbance ICD Codes: F03.91 - Unspecified dementia with behavioral disturbance SNOMED: 6665322837451 (3) Acute metabolic encephalopathy ICD Codes: G93.41 - Metabolic encephalopathy SNOMED: 65219595, 334167813 (4) Lower GI bleed ICD Codes: K92.2 - Gastrointestinal hemorrhage, unspecified SNOMED: 89627443 Status: stable, unchanged Status Narrative Discussed with Dr. Garza Assessment/Plan SUMMARY OF FINDINGS: 1. Rectal mass. 2. Diverticulosis. 3. Poor colonic prep. RECOMMENDATIONS: Follow up biopsy results and treat accordingly. If the biopsies are consistent with adenocarcinoma, then we are going to try to get a consent for a CT with contrast for staging and the patient at that point would need a surgical evaluation and oncology evaluation. If the tumor has not metastasized, the patient also most probably will benefit from a rectal EUS for staging. We will wait for the biopsy to come back before we make all those decisions. Meanwhile, we are going to order a CEA level for this patient. The patient was seen and examined at bedside and all new and available data was reviewed in the patients chart. I agree with the above findings, impression and plan. (Patient seen earlier today. Signature stamp does not reflect patient encounter time.). - Shade Garza MD Subjective Gastrointestinal/Abdominal: Reports: no symptoms Objective Last 24 Hour Vital Signs Date Time Temp Pulse Resp B/P (MAP) Pulse Ox O2 Delivery O2 Flow Rate FiO2 05/14/18 04:00 97.7 65 18 137/75 (95) 98 05/13/18 21:00 Room Air 05/13/18 20:00 98.1 62 18 114/69 (84) 98 05/13/18 16:00 98.9 86 17 116/69 (85) 97 05/13/18 12:00 97.4 71 18 132/77 (95) 98 Intake and Output 05/13/18 05/14/18 18:59 06:59 Intake Total 1050 ml 1200 ml Output Total 1650 ml 1800 ml Balance -600 ml -600 ml Intake Oral 1200 ml IV Total 100 ml Other 950 ml Output Urine Total 1650 ml 1800 ml Height (Feet): 5 Height (Inches): 4.00 Weight (Pounds): 177 General Appearance: WD/WN, no apparent distress, alert Cardiovascular: normal rate Respiratory/Chest: normal breath sounds, no respiratory distress Abdominal Exam: normal bowel sounds, non tender, soft Extremities: normal range of motion, non-tender Kim Long NP May 14, 2018 11:13
--- NOTE | 2018-05-14 12:11 | General Progress Note ---
Assessment/Plan Problem List: (1) Dementia with behavioral disturbance ICD Codes: F03.91 - Unspecified dementia with behavioral disturbance SNOMED: 6065808601128 (2) Acute metabolic encephalopathy ICD Codes: G93.41 - Metabolic encephalopathy SNOMED: 90162639, 819678636 Status: stable Assessment/Plan remeron 15mg po qhs zyprexa 2.5mg po qam haldol im prn Subjective Neurologic/Psychiatric: Reports: anxiety, depressed, emotional problems Allergies: Coded Allergies: FEXOFENADINE (Verified Allergy, Unknown, 05/10/18) Objective Last 24 Hour Vital Signs Date Time Temp Pulse Resp B/P (MAP) Pulse Ox O2 Delivery O2 Flow Rate FiO2 05/14/18 09:00 Room Air 05/14/18 04:00 97.7 65 18 137/75 (95) 98 05/13/18 21:00 Room Air 05/13/18 20:00 98.1 62 18 114/69 (84) 98 05/13/18 16:00 98.9 86 17 116/69 (85) 97 Intake and Output 05/13/18 05/14/18 18:59 06:59 Intake Total 1050 ml 1200 ml Output Total 1650 ml 1800 ml Balance -600 ml -600 ml Intake Oral 1200 ml IV Total 100 ml Other 950 ml Output Urine Total 1650 ml 1800 ml Height (Feet): 5 Height (Inches): 4.00 Weight (Pounds): 177 General Appearance: alert, confused, agitated Dang Baumann MD May 14, 2018 12:11
[2018-05-14] MEDS ORDERED: LORazepam 1mg tab ORAL PRN (13:00)
--- NOTE | 2018-05-14 13:22 | NUR ---
MRI CANCELLED PER DR. GANN, PT WAS ADAMANTLY REFUSING MRI EXAM. JESSY GONSALVES HAS INFORMED ME OF THE CANCELLATION. TJB 13:22
--- NOTE | 2018-05-14 15:11 | NUR ---
Social Service Note LISA spoke with [facility], conservator Jayashree Robertson [phone]. Jayashree is only granted authority to making mental health decisions for patient, not medical decisions. Jayashree provided LISA the contact number for patient's mother Leigh Lee [phone]. Patient's mother is soon to be 99 years old. She is alert, oriented and states she only has a caregiver to assist with mobility issues. Mother states she has not spoken with her son in several years because facility in formed her that after they would speak patient would become agitated and upset. Mother stated her caregiver calls for updates about once a month. LISA informed mother of treatment plan. Mother would support the decision of the medical team regarding treatment plan of care. LISA informed Dr. Moe and consultants. LISA spoke with RAJAN Hill at [facility] [phone] to determine if they are able to care for a patient who may require chemo. RAJAN will discuss with administration and contact LISA. Will continue to monitor and follow up.
--- NOTE | 2018-05-14 15:12 | General Progress Note ---
Assessment/Plan Assessment/Plan S: I am ok, O: poor historian, lack of orientation, Lack of insight Sp02 EP Interpretation: reviewed, normal General Appearance: normal inspection, well appearing, no apparent distress, alert Head: atraumatic ENT: normal ENT inspection, hearing grossly normal, normal voice Neck: normal inspection, full range of motion, supple, no bony tend Respiratory: normal inspection, lungs clear, normal breath sounds, no respiratory distress, no retraction, no wheezing Cardiovascular #1: regular rate, rhythm, no edema Gastrointestinal: normal inspection, normal bowel sounds, non tender, soft, no guarding, no hernia Rectal: other - gross blood Genitourinary: no CVA tenderness Musculoskeletal: normal inspection, back normal, normal range of motion Neurologic: normal inspection, alert, responsive, speech normal Psychiatric: mood/affect are flat, Lack of insight , poor cognistion Skin: normal inspection, normal color, no rash Meds: reviewed and reconciled A/P; 1- Acute LGIB : S/P Colonoscopy, Resolved 2. Rectal Cancer: New finding 2- Afib with controlled rate : Off ATC 3- Psych 4- BPH 5- HLP 6- GI-DVT prophylaxia 7. Non Compliance with Medical Advise Refusing MRI of pelvic Non Compliance with Medical Advise Poor out patient followup Challenging for out patient Monitoring and surveillance in this patient with lack of capacity Will proceed with Bioethic committee meeting Subjective Allergies: Coded Allergies: FEXOFENADINE (Verified Allergy, Unknown, 05/10/18) Objective Last 24 Hour Vital Signs Date Time Temp Pulse Resp B/P (MAP) Pulse Ox O2 Delivery O2 Flow Rate FiO2 05/14/18 09:00 Room Air 05/14/18 04:00 97.7 65 18 137/75 (95) 98 05/13/18 21:00 Room Air 05/13/18 20:00 98.1 62 18 114/69 (84) 98 05/13/18 16:00 98.9 86 17 116/69 (85) 97 Intake and Output 05/13/18 05/14/18 18:59 06:59 Intake Total 1050 ml 1200 ml Output Total 1650 ml 1800 ml Balance -600 ml -600 ml Intake Oral 1200 ml IV Total 100 ml Other 950 ml Output Urine Total 1650 ml 1800 ml Height (Feet): 5 Height (Inches): 4.00 Weight (Pounds): 177 Rezvani,Mohammad MD May 14, 2018 15:12
--- NOTE | 2018-05-14 17:29 | Surgery Progress Note ---
Surgery Progress Note Subjective Additional Comments no acute events. comfortable. prelim path said to be biopsy proven adenocarcinoma. pending final read. no active bleeding. labs noted exam stable. Objective Last 24 Hour Vital Signs Date Time Temp Pulse Resp B/P (MAP) Pulse Ox O2 Delivery O2 Flow Rate FiO2 05/14/18 09:00 Room Air 05/14/18 04:00 97.7 65 18 137/75 (95) 98 05/13/18 21:00 Room Air 05/13/18 20:00 98.1 62 18 114/69 (84) 98 I&O Intake and Output 05/13/18 05/14/18 19:00 07:00 Intake Total 950 ml 1200 ml Output Total 1650 ml 1800 ml Balance -700 ml -600 ml Intake Oral 1200 ml Other 950 ml Output Urine Total 1650 ml 1800 ml Cardiovascular: RSR Respiratory: clear Abdomen: soft, flat, non-tender, non-distended Extremities: no cyanosis Plan Problems: (1) Rectal mass Assessment & Plan: This is a 72 male with recently diagnosed rectal mass likely carcinoma on colonoscopy after episode of bright red blood per rectum. GI notes appreciated oncology note appreciated. prelim path likely rectal adenocarcinoma CT without suspicious lesions Needs CXR vs CT Chest for staging purposes Pending CEA Mass not palpable on LUCAS Colonoscopy note noted Awaiting final path results Pelvic MRI pending. Defer to GI for EUS for staging vs pelvic MRI Heme/onc appreciated Considerations for chemoradiation Tx Surgery reserved for obstruction or active bleeding. will follow with recs thank you Chuck Andrew May 14, 2018 17:29
[2018-05-14] MEDS: Montelukast 10mg tablet ORAL SCH (18:29)
--- NOTE | 2018-05-14 19:20 | NUR ---
NURSE NOTES: Pt recieved sitting upright in chair. No complaints at this time. Pt was educated that he will need to get back into bed later this evening as he has been sitting up in chair most of the am shift. Will continue to monitor skin. Pt in no acute distress, breathing with ease, effortless. Bhardwaj catheter in place. draining. will continue to monitor.
--- NOTE | 2018-05-14 19:37 | NUR ---
HAND-OFF: Report given to JESSY Uerña.
--- NOTE | 2018-05-14 19:39 | NUR ---
NURSE NOTES: Received patient on chair awake. No Iv access. Patient refuses. bedin low and locked position. Call light in reach. No signs of respiratory distress or pain. ROom board updated. Will continue to monitor.
--- NOTE | 2018-05-14 19:54 | Cardiology Progress Note ---
Assessment/Plan Assessment/Plan 1. Paroxysmal atrial fibrillation with RBBB, in sinus rhythm. No indication for use of anticoagulation therapy in particular in this situation where the patient suffers from rectal mass and massive GI bleed (CHADS-VASC score of 1) 2. History of lower GI bleeding due to possibly rectal mass versus diverticulosis. 3. History of schizophrenia. 4. History of hypothyroidism. 5. History of BPH. 6. History of GERD. 7. History of COPD/asthma. Subjective Subjective Denies chest pain or SOB. Objective Last 24 Hour Vital Signs Date Time Temp Pulse Resp B/P (MAP) Pulse Ox O2 Delivery O2 Flow Rate FiO2 05/14/18 09:00 Room Air 05/14/18 04:00 97.7 65 18 137/75 (95) 98 05/13/18 21:00 Room Air 05/13/18 20:00 98.1 62 18 114/69 (84) 98 Intake and Output 05/13/18 05/14/18 19:00 07:00 Intake Total 950 ml 1200 ml Output Total 1650 ml 1800 ml Balance -700 ml -600 ml Intake Oral 1200 ml Other 950 ml Output Urine Total 1650 ml 1800 ml Objective HEENT: Atraumatic and normocephalic. Anicteric. Pupils are equal, round, and reactive to light and accommodation. Extraocular muscles intact. NECK: JVP less than 5 cm. No carotid bruits. Carotid upstrokes 2+ bilaterally. CARDIOVASCULAR: Normal S1, S2. Regular rate and rhythm. No murmurs, gallops, or rubs. PMI is at fourth intercostal space in the midclavicular line. LUNGS: Clear to auscultation bilaterally. ABDOMEN: Soft, nontender, and nondistended. No hepatosplenomegaly. Positive bowel sounds. EXTREMITIES: No evidence of edema, clubbing, or cyanosis. Laci Bell MD May 14, 2018 19:54
[2018-05-14 20:00] VITALS: BP 134/87
[2018-05-14] MEDS: Miralax 17gm pkt ORAL SCH (22:00)
[2018-05-14] MEDS: Atorvastatin 20mg tab ORAL SCH (22:17)
[2018-05-14] MEDS: Tamsulosin 0.4mg cap ORAL SCH (22:17)
--- NOTE | 2018-05-14 23:44 | General Progress Note ---
Assessment/Plan Assessment/Plan Assessment and Recs: # Rectal mass noted on colonoscopy, current CT a/p with contrast shows no distant mets --> final pathology to confirm adenoca pending --> Gi noted and surg recs appreciated --> anemia panel has been reviewed and c/w aid --> iron iv continue x 5 days --> may need eus for loco-regional staging, such as mri --> may need further gi care, surg as well --> gi recs appreciated # Anemia due to gi bleed --> anemia full panel pending # Lower gi bleed due likely to rectal mass --> final path pending # Dementia - likely chronic --> continue to monitor # Azotemia is likely due to dehydration --> administer ivf as needed The timing of this note does not necessarily reflect the time of the patient was seen. Greatly appreciate consultation! Subjective Constitutional: Denies: no symptoms, chills, diaphoresis, fever, malaise, weakness, other HEENT: Denies: no symptoms, eye pain, blurred vision, tearing, double vision, ear pain, ear discharge, nose pain, nose congestion, throat pain, throat swelling, mouth pain, mouth swelling, other Cardiovascular: Denies: no symptoms, chest pain, edema, irregular heart rate, lightheadedness, palpitations, syncope, other Respiratory: Denies: no symptoms, cough, orthopnea, shortness of breath, SOB with excertion, SOB at rest, sputum, stridor, wheezing, other Gastrointestinal/Abdominal: Denies: no symptoms, abdomen distended, abdominal pain, black stools, tarry stools, blood in stool, constipated, diarrhea, difficulty swallowing, nausea, poor appetite, poor fluid intake, rectal bleeding , vomiting, other Genitourinary: Denies: no symptoms, burning, discharge, frequency, flank pain, hematuria, incontinence, pain, urgency, other Neurologic/Psychiatric: Denies: no symptoms, anxiety, depressed, emotional problems, headache, numbness, paresthesia, pre-existing deficit, seizure, tingling, tremors, weakness, other Endocrine: Denies: no symptoms, excessive sweating, flushing, intolerance to cold, intolerance to heat, increased hunger, increased thirst, increased urine, unexplained weight gain, unexplained weight loss, other Hematologic/Lymphatic: Denies: no symptoms, anemia, easy bleeding, easy bruising, other Allergies: Coded Allergies: FEXOFENADINE (Verified Allergy, Unknown, 05/10/18) Subjective 05/13: reviewed gi recs and cea is pending at the moment, result sof rectal mass bx pending, surg eval prn 05/14: seen in the room,no acute events, prelim path said to be biopsy proven adenocarcinoma. pending final read Objective Last 24 Hour Vital Signs Date Time Temp Pulse Resp B/P (MAP) Pulse Ox O2 Delivery O2 Flow Rate FiO2 05/14/18 21:00 Room Air 05/14/18 20:00 98.7 94 20 134/87 (103) 100 05/14/18 09:00 Room Air 05/14/18 04:00 97.7 65 18 137/75 (95) 98 Intake and Output 05/13/18 05/14/18 19:00 07:00 Intake Total 950 ml 1200 ml Output Total 1650 ml 1800 ml Balance -700 ml -600 ml Intake Oral 1200 ml Other 950 ml Output Urine Total 1650 ml 1800 ml Height (Feet): 5 Height (Inches): 4.00 Weight (Pounds): 177 Objective General Appearance: normal inspection, well appearing Head: atraumatic ENT: normal ENT inspection, hearing grossly normal, normal voice Neck: normal inspection, full range of motion, supple Respiratory: normal inspection, lungs clear, normal breath sounds Cardiovascular: regular rate, rhythm, no edema Gastrointestinal: normal inspection Rectal: other - gross blood Genitourinary: no CVA tenderness Musculoskeletal: normal inspection Neurologic: normal inspection, alert Psychiatric: mood/affect normal Skin: normal inspection, normal color, no rash Dajuan Freedman MD May 14, 2018 23:44
[2018-05-14 23:56] VITALS: BP 130/90
[2018-05-15 04:00] VITALS: BP 131/75
--- NOTE | 2018-05-15 07:37 | NUR ---
HAND-OFF: Report given to Casi JIMÉNEZ.
[2018-05-15 08:00] VITALS: BP 121/96
[2018-05-15] MEDS: Lactobacillus-GG tablet ORAL SCH (10:00)
[2018-05-15] MEDS: Bethanechol 10mg Tab ORAL SCH ×3 (10:00→17:23)
[2018-05-15] MEDS: OLANZapine 2.5mg tab ORAL SCH (10:00)
[2018-05-15] MEDS: Calcium Carbonate 500mg w/Vit D 200iu tab ORAL SCH (10:00)
[2018-05-15] MEDS: Docusate 250mg cap ORAL SCH ×2 (10:00→17:23)
[2018-05-15] MEDS: Flonase Nasal Inhaler 16gm NASAL SCH ×2 (10:12→17:23)
[2018-05-15 12:04] VITALS: BP 133/77
--- NOTE | 2018-05-15 12:54 | GI Progress Note ---
Assessment/Plan Problems: (1) Rectal mass ICD Codes: K62.9 - Disease of anus and rectum, unspecified SNOMED: 091979366 (2) Dementia with behavioral disturbance ICD Codes: F03.91 - Unspecified dementia with behavioral disturbance SNOMED: 4063891179771 (3) Acute metabolic encephalopathy ICD Codes: G93.41 - Metabolic encephalopathy SNOMED: 85418420, 658079547 (4) Lower GI bleed ICD Codes: K92.2 - Gastrointestinal hemorrhage, unspecified SNOMED: 92374026 Status: unchanged Status Narrative Discussed with Dr. Garza Assessment/Plan SUMMARY OF FINDINGS: 1. Rectal mass. 2. Diverticulosis. 3. Poor colonic prep. RECOMMENDATIONS: Follow up biopsy results, preliminary for adenocarcinoma. Obtain rousseau CT with contrast for staging. Follow-up surgical and oncology recommendations Patient may need rectal EUS for staging if no metastasis noted Follow-up CEA The patient was seen and examined at bedside and all new and available data was reviewed in the patients chart. I agree with the above findings, impression and plan. (Patient seen earlier today. Signature stamp does not reflect patient encounter time.). - Shade Garza MD Subjective Gastrointestinal/Abdominal: Reports: no symptoms Objective Last 24 Hour Vital Signs Date Time Temp Pulse Resp B/P (MAP) Pulse Ox O2 Delivery O2 Flow Rate FiO2 05/15/18 12:04 98.3 78 20 133/77 (95) 98 05/15/18 09:00 Room Air 05/15/18 08:00 97.4 118 20 121/96 (104) 99 05/15/18 04:00 97.5 89 20 131/75 (93) 98 05/14/18 23:56 98.3 102 20 130/90 (103) 97 05/14/18 21:00 Room Air 05/14/18 20:00 98.7 94 20 134/87 (103) 100 Intake and Output 05/14/18 05/15/18 18:59 06:59 Intake Total 1200 ml 2000 ml Output Total 2400 ml 2400 ml Balance -1200 ml -400 ml Intake Oral 1200 ml 2000 ml Output Urine Total 2400 ml 2400 ml # Bowel Movements 2 Height (Feet): 5 Height (Inches): 4.00 Weight (Pounds): 177 General Appearance: WD/WN, no apparent distress, alert Cardiovascular: normal rate Respiratory/Chest: normal breath sounds, no respiratory distress Abdominal Exam: normal bowel sounds, non tender, soft Extremities: normal range of motion, non-tender Kim Long NP May 15, 2018 12:54
[2018-05-15] MEDS ORDERED: Isovue-300 100ml vial INJ PRN (13:00)
--- NOTE | 2018-05-15 13:13 | Surgery Progress Note ---
Surgery Progress Note Subjective Additional Comments no acute events. stable. comfortable. Objective Last 24 Hour Vital Signs Date Time Temp Pulse Resp B/P (MAP) Pulse Ox O2 Delivery O2 Flow Rate FiO2 05/15/18 12:04 98.3 78 20 133/77 (95) 98 05/15/18 09:00 Room Air 05/15/18 08:00 97.4 118 20 121/96 (104) 99 05/15/18 04:00 97.5 89 20 131/75 (93) 98 05/14/18 23:56 98.3 102 20 130/90 (103) 97 05/14/18 21:00 Room Air 05/14/18 20:00 98.7 94 20 134/87 (103) 100 I&O Intake and Output 05/14/18 05/15/18 18:59 06:59 Intake Total 1200 ml 2000 ml Output Total 2400 ml 2400 ml Balance -1200 ml -400 ml Intake Oral 1200 ml 2000 ml Output Urine Total 2400 ml 2400 ml # Bowel Movements 2 Cardiovascular: RSR Respiratory: clear Abdomen: soft, flat, non-tender, non-distended Extremities: no cyanosis Plan Problems: (1) Rectal mass Assessment & Plan: This is a 72 male with recently diagnosed rectal mass likely carcinoma on colonoscopy after episode of bright red blood per rectum. GI notes appreciated oncology note appreciated. prelim path likely rectal adenocarcinoma CT without suspicious lesions Needs CXR vs CT Chest for staging purposes Pending CEA Mass not palpable on LUCAS Colonoscopy note noted Awaiting final path results Pelvic MRI pending. Defer to GI for EUS for staging vs pelvic MRI Heme/onc appreciated Considerations for chemoradiation Tx Surgery reserved for obstruction or active bleeding. will follow with recs thank you Chuck Andrew May 15, 2018 13:13
--- NOTE | 2018-05-15 13:19 | General Progress Note ---
Assessment/Plan Problem List: (1) Dementia with behavioral disturbance ICD Codes: F03.91 - Unspecified dementia with behavioral disturbance SNOMED: 8220366902016 (2) Acute metabolic encephalopathy ICD Codes: G93.41 - Metabolic encephalopathy SNOMED: 71410522, 975017947 Status: unchanged Assessment/Plan remeron 15mg po qhs zyprexa 2.5mg po qam haldol im prn Subjective Neurologic/Psychiatric: Reports: anxiety, depressed, emotional problems Allergies: Coded Allergies: FEXOFENADINE (Verified Allergy, Unknown, 05/10/18) Subjective the pt is calm cont to have episodes of agitation confused Objective Last 24 Hour Vital Signs Date Time Temp Pulse Resp B/P (MAP) Pulse Ox O2 Delivery O2 Flow Rate FiO2 05/15/18 12:04 98.3 78 20 133/77 (95) 98 05/15/18 09:00 Room Air 05/15/18 08:00 97.4 118 20 121/96 (104) 99 05/15/18 04:00 97.5 89 20 131/75 (93) 98 05/14/18 23:56 98.3 102 20 130/90 (103) 97 05/14/18 21:00 Room Air 05/14/18 20:00 98.7 94 20 134/87 (103) 100 Intake and Output 05/14/18 05/15/18 18:59 06:59 Intake Total 1200 ml 2000 ml Output Total 2400 ml 2400 ml Balance -1200 ml -400 ml Intake Oral 1200 ml 2000 ml Output Urine Total 2400 ml 2400 ml # Bowel Movements 2 Height (Feet): 5 Height (Inches): 4.00 Weight (Pounds): 177 General Appearance: WD/WN, alert, confused Neurologic: disoriented Dang Baumann MD May 15, 2018 13:19
--- NOTE | 2018-05-15 13:54 | NUR ---
REHABILITATION SERVICES MANAGERARMORER TECHNICIAN SI: GI BLEED T. 97.4 HR 118 RR 20 B/P 121/96 RA 98% IS: IRON IV FLONASE PO K-DUR PO BIOETHICS CONSULT MED/SURG STATUS
--- NOTE | 2018-05-15 14:01 | NUR ---
Social Service Note LISA received documents from the public guardian's office to inform patient of impending hearing on June 01, 2018. SW provided documentation to patient, however patient was not interested in documents. Documents placed in patient's chart and should be provided to upon discharge.
--- NOTE | 2018-05-15 14:11 | General Progress Note ---
Assessment/Plan Assessment/Plan S: I am ok, O: poor historian, lack of orientation, Lack of insight , currently on Urinary Bhardwaj Sp02 EP Interpretation: reviewed, normal General Appearance: normal inspection, well appearing, no apparent distress, alert Head: atraumatic ENT: normal ENT inspection, hearing grossly normal, normal voice Neck: normal inspection, full range of motion, supple, no bony tend Respiratory: normal inspection, lungs clear, normal breath sounds, no respiratory distress, no retraction, no wheezing Cardiovascular #1: regular rate, rhythm, no edema Gastrointestinal: normal inspection, normal bowel sounds, non tender, soft, no guarding, no hernia Rectal: other - gross blood Genitourinary: no CVA tenderness Musculoskeletal: normal inspection, back normal, normal range of motion Neurologic: normal inspection, alert, responsive, speech normal Psychiatric: mood/affect are flat, Lack of insight , poor cognistion Skin: normal inspection, normal color, no rash Meds: reviewed and reconciled, including iron supplmentaon A/P; 1- Acute LGIB : S/P Colonoscopy, Resolved 2. Rectal Cancer: New finding 2- Afib with controlled rate : Off ATC 3- Psych 4- BPH 5- HLP 6- GI-DVT prophylaxia 7. Non Compliance with Medical Advise Refusing MRI of pelvic Non Compliance with Medical Advise Poor out patient followup Challenging case in term of out patient Monitoring and surveillance. Given lack of capacity, this matter will be discussed with the next Keen Next keen located. Will Cancel the consult with Bioethic committee Subjective Allergies: Coded Allergies: FEXOFENADINE (Verified Allergy, Unknown, 05/10/18) Objective Last 24 Hour Vital Signs Date Time Temp Pulse Resp B/P (MAP) Pulse Ox O2 Delivery O2 Flow Rate FiO2 05/15/18 12:04 98.3 78 20 133/77 (95) 98 05/15/18 09:00 Room Air 05/15/18 08:00 97.4 118 20 121/96 (104) 99 05/15/18 04:00 97.5 89 20 131/75 (93) 98 05/14/18 23:56 98.3 102 20 130/90 (103) 97 05/14/18 21:00 Room Air 05/14/18 20:00 98.7 94 20 134/87 (103) 100 Intake and Output 05/14/18 05/15/18 18:59 06:59 Intake Total 1200 ml 2000 ml Output Total 2400 ml 2400 ml Balance -1200 ml -400 ml Intake Oral 1200 ml 2000 ml Output Urine Total 2400 ml 2400 ml # Bowel Movements 2 Height (Feet): 5 Height (Inches): 4.00 Weight (Pounds): 177 Sidney Moe MD May 15, 2018 14:11
[2018-05-15] MEDS: Haloperidol 5mg/ml Inj IM PRN (15:31)
--- NOTE | 2018-05-15 15:33 | NUR ---
RD ASSESSMENT & RECOMMENDATIONS SEE CARE ACTIVITY FOR COMPLETE ASSESSMENT DAILY ESTIMATED NEEDS: Needs based on Possible CA/ 64kg abw 25-30 kcals/kg 2619-7824 total kcals 1-1.5 g protein/kg 64-96 g total protein 25-30 mL/kg 8008-9285 total fluid mLs NUTRITION DIAGNOSIS: Altered nutrition related lab values R/T GIB as evidenced by low hgb (12.7-> 10.1), s/p colonoscopy w/ finding of rectal mass. CURRENT DIET:SOFT PO DIET RECOMMENDATIONS: Regular, soft diet as tolerated ADDITIONAL RECOMMENDATIONS: * Standing wt as able for accurate CBW * Monitor hgb trend * Updated CBC and BMP as able
[2018-05-15 16:00] VITALS: BP 125/82
--- NOTE | 2018-05-15 16:00 | NUR ---
NURSE NOTES: PT URINATING AFTER BRYSON DISCONTINUED. PT AMBULATES TO BATHROOM. IN NO APPARENT DISTRESS AT THIS TIME. WILL CONTINUE TO MONITOR.
[2018-05-15] MEDS: Montelukast 10mg tablet ORAL SCH (17:23)
--- NOTE | 2018-05-15 18:17 | General Progress Note ---
Assessment/Plan Assessment/Plan Assessment and Recs: # Rectal mass noted on colonoscopy, current CT a/p with contrast shows no distant mets --> final pathology to confirm adenoca pending --> Gi noted and surg recs appreciated --> anemia panel has been reviewed and c/w aid --> iron iv continue x 5 days --> may need eus for loco-regional staging, such as mri --> may need further gi care, surg as well --> gi recs appreciated # Anemia due to gi bleed --> anemia full panel pending # Lower gi bleed due likely to rectal mass --> final path pending # Dementia - likely chronic --> continue to monitor # Azotemia is likely due to dehydration --> administer ivf as needed The timing of this note does not necessarily reflect the time of the patient was seen. Greatly appreciate consultation! Subjective ROS Limited/Unobtainable: Yes Allergies: Coded Allergies: FEXOFENADINE (Verified Allergy, Unknown, 05/10/18) Subjective 3/: reviewed gi recs and cea is pending at the moment, result sof rectal mass bx pending, surg eval prn 05/14: seen in the room,no acute events, prelim path said to be biopsy proven adenocarcinoma. pending final read 05/15: pt is confused, denies acute distress, no acute events reported, cbc reviewed, plt trending down Objective Last 24 Hour Vital Signs Date Time Temp Pulse Resp B/P (MAP) Pulse Ox O2 Delivery O2 Flow Rate FiO2 05/15/18 16:00 98.5 67 20 125/82 (96) 99 05/15/18 12:04 98.3 78 20 133/77 (95) 98 05/15/18 09:00 Room Air 05/15/18 08:00 97.4 118 20 121/96 (104) 99 05/15/18 04:00 97.5 89 20 131/75 (93) 98 05/14/18 23:56 98.3 102 20 130/90 (103) 97 05/14/18 21:00 Room Air 05/14/18 20:00 98.7 94 20 134/87 (103) 100 Intake and Output 05/14/18 05/15/18 18:59 06:59 Intake Total 1200 ml 2000 ml Output Total 2400 ml 2400 ml Balance -1200 ml -400 ml Intake Oral 1200 ml 2000 ml Output Urine Total 2400 ml 2400 ml # Bowel Movements 2 Height (Feet): 5 Height (Inches): 4.00 Weight (Pounds): 177 Objective General Appearance: normal inspection, well appearing Head: atraumatic ENT: normal ENT inspection, hearing grossly normal, normal voice Neck: normal inspection, full range of motion, supple Respiratory: normal inspection, lungs clear, normal breath sounds Cardiovascular: regular rate, rhythm, no edema Gastrointestinal: normal inspection Rectal: other - gross blood Genitourinary: no CVA tenderness Musculoskeletal: normal inspection Neurologic: normal inspection, alert Psychiatric: mood/affect normal Skin: normal inspection, normal color, no rash Dajuan Freedman MD May 15, 2018 18:16
--- NOTE | 2018-05-15 19:30 | NUR ---
NURSE NOTES: Received patient in no apparent distress noted. A&OX2. Patient void well. Bed in lowest position. Call light within reach. Will continue to monitor.
[2018-05-15 20:00] VITALS: BP 115/73
--- NOTE | 2018-05-15 20:00 | NUR ---
NURSE NOTES: Patient refused to check bladder scan. Patient void well at this time. Will continue to monitor.
[2018-05-15] MEDS ORDERED: Iron Sucrose 100 MG in NS 55 ML IV SCH (21:00)
[2018-05-15] MEDS: Atorvastatin 20mg tab ORAL SCH (21:24)
[2018-05-15] MEDS: Tamsulosin 0.4mg cap ORAL SCH (21:24)
[2018-05-15] MEDS: Miralax 17gm pkt ORAL SCH (21:25)
--- NOTE | 2018-05-15 23:57 | Cardiology Progress Note ---
Assessment/Plan Assessment/Plan 1. Paroxysmal atrial fibrillation with RBBB, in sinus rhythm. No indication for use of anticoagulation therapy in view of CHADS-VASC score of 1 and GI bleed. 2. History of lower GI bleeding due to possibly rectal mass. 4. History of hypothyroidism. 5. History of BPH. 6. History of GERD. 7. History of COPD/asthma. Subjective Subjective Denies chest pain or SOB. No cardiac events noted. Objective Last 24 Hour Vital Signs Date Time Temp Pulse Resp B/P (MAP) Pulse Ox O2 Delivery O2 Flow Rate FiO2 05/15/18 21:00 Room Air 05/15/18 20:00 97.5 67 20 115/73 (87) 96 05/15/18 16:00 98.5 67 20 125/82 (96) 99 05/15/18 12:04 98.3 78 20 133/77 (95) 98 05/15/18 09:00 Room Air 05/15/18 08:00 97.4 118 20 121/96 (104) 99 05/15/18 04:00 97.5 89 20 131/75 (93) 98 Intake and Output 05/14/18 05/15/18 19:00 07:00 Intake Total 1200 ml 2000 ml Output Total 2400 ml 2400 ml Balance -1200 ml -400 ml Intake Oral 1200 ml 2000 ml Output Urine Total 2400 ml 2400 ml # Bowel Movements 2 Objective HEENT: Atraumatic and normocephalic. Anicteric. Pupils are equal, round, and reactive to light and accommodation. Extraocular muscles intact. NECK: JVP less than 5 cm. No carotid bruits. Carotid upstrokes 2+ bilaterally. CARDIOVASCULAR: Normal S1, S2. Regular rate and rhythm. No murmurs, gallops, or rubs. PMI is at fourth intercostal space in the midclavicular line. LUNGS: Clear to auscultation bilaterally. ABDOMEN: Soft, nontender, and nondistended. No hepatosplenomegaly. Positive bowel sounds. EXTREMITIES: No evidence of edema, clubbing, or cyanosis. Laci Bell MD May 15, 2018 23:57
[2018-05-16] VITALS: BP 123/84
[2018-05-16 04:00] VITALS: BP 115/72
--- NOTE | 2018-05-16 07:02 | NUR ---
HAND-OFF: Report given to Everton Payne RN.
--- NOTE | 2018-05-16 07:35 | NUR ---
NURSE NOTES: PT SITTING ON CHAIR AT BEDSIDE. IN NO APPARENT DISTRESS AT THIS TIME. PT TALKS TO SELF. ABLE TO ANSWER RN'S SIMPLE YES AND NO QUESTIONS. WILL CONTINUE TO MONITOR.
[2018-05-16 07:39] LABS: BASOPHILS % (AUTO) 0.8 % (0.0-2.0); EOSINOPHILS % (AUTO) 5.9 % (0.0-3.0); HEMATOCRIT 36.8 % (42.0-52.0); HEMOGLOBIN 11.8 G/DL (14.2-18.0); LYMPHOCYTES % (AUTO) 32.4 % (20.0-45.0); MEAN CORPUSCULAR VOLUME 86 FL (80-99); MONOCYTES % (AUTO) 10.1 % (1.0-10.0); NEUTROPHILS % (AUTO) 50.8 % (45.0-75.0); PLATELET COUNT 229 K/UL (150-450); RED BLOOD COUNT 4.25 M/UL (4.70-6.10); RED CELL DISTRIBUTION WIDTH 14.4 % (11.6-14.8); WHITE BLOOD COUNT 5.2 K/UL (4.8-10.8)
[2018-05-16 07:57] LABS: ANION GAP 8 mmol/L (5-15); BLOOD UREA NITROGEN 15 mg/dL (7-18); CALCIUM 9.2 MG/DL (8.5-10.1); CARBON DIOXIDE 27 MMOL/L (21-32); CHLORIDE 99 MMOL/L (98-107); CREATININE 0.9 MG/DL (0.55-1.30); POTASSIUM 3.7 MMOL/L (3.5-5.1); SODIUM 134 MMOL/L (136-145)
[2018-05-16 08:00] VITALS: BP 131/80
[2018-05-16] MEDS: Docusate 250mg cap ORAL SCH ×2 (08:51→17:57)
[2018-05-16] MEDS: Lactobacillus-GG tablet ORAL SCH (08:52)
[2018-05-16] MEDS: OLANZapine 2.5mg tab ORAL SCH (08:52)
[2018-05-16] MEDS: Flonase Nasal Inhaler 16gm NASAL SCH ×2 (08:52→17:57)
[2018-05-16] MEDS: Calcium Carbonate 500mg w/Vit D 200iu tab ORAL SCH (08:52)
[2018-05-16] MEDS: Bethanechol 10mg Tab ORAL SCH ×3 (08:52→18:00)
--- NOTE | 2018-05-16 11:39 | GI Progress Note ---
Assessment/Plan Problems: (1) Rectal mass ICD Codes: K62.9 - Disease of anus and rectum, unspecified SNOMED: 003772183 (2) Dementia with behavioral disturbance ICD Codes: F03.91 - Unspecified dementia with behavioral disturbance SNOMED: 1702975403686 (3) Acute metabolic encephalopathy ICD Codes: G93.41 - Metabolic encephalopathy SNOMED: 87457189, 857952898 (4) Lower GI bleed ICD Codes: K92.2 - Gastrointestinal hemorrhage, unspecified SNOMED: 38252405 Status: unchanged Status Narrative Discussed with Dr. Garza. Assessment/Plan SUMMARY OF FINDINGS: 1. Rectal mass. 2. Diverticulosis. 3. Poor colonic prep. AP CT reviewed, patient refused chest CT RECOMMENDATIONS: Follow up biopsy results, preliminary for adenocarcinoma. Obtain rousseau CT with contrast for staging. Follow-up surgical and oncology recommendations Patient may need rectal EUS for staging if no metastasis noted Follow-up CEA The patient was seen and examined at bedside and all new and available data was reviewed in the patients chart. I agree with the above findings, impression and plan. (Patient seen earlier today. Signature stamp does not reflect patient encounter time.). - Shade Garza MD Subjective Subjective Refused chest CT Objective Last 24 Hour Vital Signs Date Time Temp Pulse Resp B/P (MAP) Pulse Ox O2 Delivery O2 Flow Rate FiO2 05/16/18 09:00 Room Air 05/16/18 08:00 96.3 76 19 131/80 (97) 98 05/16/18 04:00 97.7 60 20 115/72 (86) 98 05/16/18 00:00 97.5 63 20 123/84 (97) 95 05/15/18 21:00 Room Air 05/15/18 20:00 97.5 67 20 115/73 (87) 96 05/15/18 16:00 98.5 67 20 125/82 (96) 99 05/15/18 12:04 98.3 78 20 133/77 (95) 98 Intake and Output 05/15/18 05/16/18 19:00 07:00 Intake Total 1080 ml 8000 ml Output Total 2400 ml Balance -1320 ml 8000 ml Intake Oral 1080 ml 8000 ml Output Urine Total 2400 ml # Voids 2 22 Laboratory Tests Test 05/16/18 06:08 White Blood Count 5.2 K/UL (4.8-10.8) Red Blood Count 4.25 M/UL (4.70-6.10) L Hemoglobin 11.8 G/DL (14.2-18.0) L Hematocrit 36.8 % (42.0-52.0) L Mean Corpuscular Volume 86 FL (80-99) Mean Corpuscular Hemoglobin 27.8 PG (27.0-31.0) Mean Corpuscular Hemoglobin Concent 32.1 G/DL (32.0-36.0) Red Cell Distribution Width 14.4 % (11.6-14.8) Platelet Count 229 K/UL (150-450) Mean Platelet Volume 7.3 FL (6.5-10.1) Neutrophils (%) (Auto) 50.8 % (45.0-75.0) Lymphocytes (%) (Auto) 32.4 % (20.0-45.0) Monocytes (%) (Auto) 10.1 % (1.0-10.0) H Eosinophils (%) (Auto) 5.9 % (0.0-3.0) H Basophils (%) (Auto) 0.8 % (0.0-2.0) Sodium Level 134 MMOL/L (136-145) L Potassium Level 3.7 MMOL/L (3.5-5.1) Chloride Level 99 MMOL/L (98-107) Carbon Dioxide Level 27 MMOL/L (21-32) Anion Gap 8 mmol/L (5-15) Blood Urea Nitrogen 15 mg/dL (7-18) Creatinine 0.9 MG/DL (0.55-1.30) Estimat Glomerular Filtration Rate mL/min (>60) Glucose Level 81 MG/DL (74-106) Calcium Level 9.2 MG/DL (8.5-10.1) Carcinoembryonic Antigen Pending Height (Feet): 5 Height (Inches): 4.00 Weight (Pounds): 183 General Appearance: WD/WN, no apparent distress, alert Cardiovascular: normal rate Respiratory/Chest: normal breath sounds, no respiratory distress Abdominal Exam: normal bowel sounds, non tender, soft Extremities: normal range of motion, non-tender Kim Long NP May 16, 2018 11:39
[2018-05-16 12:00] VITALS: BP 139/77
--- NOTE | 2018-05-16 12:06 | General Progress Note ---
Assessment/Plan Problem List: (1) Dementia with behavioral disturbance ICD Codes: F03.91 - Unspecified dementia with behavioral disturbance SNOMED: 6138417879227 (2) Acute metabolic encephalopathy ICD Codes: G93.41 - Metabolic encephalopathy SNOMED: 58231633, 068751125 Status: unchanged Assessment/Plan Remeron 15mg po qhs Zyprexa 2.5mg po qam Haldol im prn Subjective Neurologic/Psychiatric: Reports: anxiety, depressed Allergies: Coded Allergies: FEXOFENADINE (Verified Allergy, Unknown, 05/10/18) Subjective the pt is calm cont to have episodes of agitation confused Objective Last 24 Hour Vital Signs Date Time Temp Pulse Resp B/P (MAP) Pulse Ox O2 Delivery O2 Flow Rate FiO2 05/16/18 09:00 Room Air 05/16/18 08:00 96.3 76 19 131/80 (97) 98 05/16/18 04:00 97.7 60 20 115/72 (86) 98 05/16/18 00:00 97.5 63 20 123/84 (97) 95 05/15/18 21:00 Room Air 05/15/18 20:00 97.5 67 20 115/73 (87) 96 05/15/18 16:00 98.5 67 20 125/82 (96) 99 Intake and Output 05/15/18 05/16/18 19:00 07:00 Intake Total 1080 ml 8000 ml Output Total 2400 ml Balance -1320 ml 8000 ml Intake Oral 1080 ml 8000 ml Output Urine Total 2400 ml # Voids 2 22 Laboratory Tests 05/16/18 06:08: White Blood Count 5.2, Red Blood Count 4.25L, Hemoglobin 11.8L, Hematocrit 36.8L , Mean Corpuscular Volume 86, Mean Corpuscular Hemoglobin 27.8, Mean Corpuscular Hemoglobin Concent 32.1, Red Cell Distribution Width 14.4, Platelet Count 229, Mean Platelet Volume 7.3, Neutrophils (%) (Auto) 50.8, Lymphocytes (% ) (Auto) 32.4, Monocytes (%) (Auto) 10.1H, Eosinophils (%) (Auto) 5.9H, Basophils (%) (Auto) 0.8, Sodium Level 134L, Potassium Level 3.7, Chloride Level 99, Carbon Dioxide Level 27, Anion Gap 8, Blood Urea Nitrogen 15, Creatinine 0.9, Estimat Glomerular Filtration Rate , Glucose Level 81, Calcium Level 9.2, Carcinoembryonic Antigen [Pending] Height (Feet): 5 Height (Inches): 4.00 Weight (Pounds): 183 General Appearance: alert, confused, agitated Dang Baumann MD May 16, 2018 12:06
--- NOTE | 2018-05-16 12:12 | NUR ---
NURSE NOTES: PT REFUSED CT SCAN TO RULE OUT METASTASIS AND STAGE RECTAL MASS. RN MADE QUALITY ASSURANCE QA LAB TECHNICIAN SRINIVASA AWARE. NO NEW ORDERS.
--- NOTE | 2018-05-16 13:50 | General Progress Note ---
Assessment/Plan Status: stable Assessment/Plan S: I am ok, O: poor historian, lack of orientation, Lack of insight , currently on Urinary Bhardwaj Sp02 EP Interpretation: reviewed, normal General Appearance: normal inspection, well appearing, no apparent distress, alert Head: atraumatic ENT: normal ENT inspection, hearing grossly normal, normal voice Neck: normal inspection, full range of motion, supple, no bony tend Respiratory: normal inspection, lungs clear, normal breath sounds, no respiratory distress, no retraction, no wheezing Cardiovascular #1: regular rate, rhythm, no edema Gastrointestinal: normal inspection, normal bowel sounds, non tender, soft, no guarding, no hernia Rectal: other - gross blood Genitourinary: no CVA tenderness Musculoskeletal: normal inspection, back normal, normal range of motion Neurologic: normal inspection, alert, responsive, speech normal Psychiatric: mood/affect are flat, Lack of insight , poor cognistion Skin: normal inspection, normal color, no rash Meds: reviewed and reconciled, including iron supplmentaon A/P; 1- Acute LGIB : S/P Colonoscopy, Resolved 2. Rectal Cancer: New finding 2- Afib with controlled rate : Off ATC 3- Psych 4- BPH 5- HLP 6- GI-DVT prophylaxia 7. Non Compliance with Medical Advise Refusing MRI of pelvic Non Compliance with Medical Advise Poor out patient followup Challenging case in term of out patient Monitoring and surveillance. Given lack of capacity, this matter will be discussed with the next Ke[facility] Next keen located. Will Cancel the consult with Bioethic committee D/W Mother. She requested me to talk with another family, Ms. Guevara. Called and left a for her Subjective Allergies: Coded Allergies: FEXOFENADINE (Verified Allergy, Unknown, 05/10/18) Objective Last 24 Hour Vital Signs Date Time Temp Pulse Resp B/P (MAP) Pulse Ox O2 Delivery O2 Flow Rate FiO2 05/16/18 09:00 Room Air 05/16/18 08:00 96.3 76 19 131/80 (97) 98 05/16/18 04:00 97.7 60 20 115/72 (86) 98 05/16/18 00:00 97.5 63 20 123/84 (97) 95 05/15/18 21:00 Room Air 05/15/18 20:00 97.5 67 20 115/73 (87) 96 05/15/18 16:00 98.5 67 20 125/82 (96) 99 Intake and Output 05/15/18 05/16/18 18:59 06:59 Intake Total 1080 ml 8000 ml Output Total 2400 ml Balance -1320 ml 8000 ml Intake Oral 1080 ml 8000 ml Output Urine Total 2400 ml # Voids 2 22 Laboratory Tests 05/16/18 06:08: White Blood Count 5.2, Red Blood Count 4.25L, Hemoglobin 11.8L, Hematocrit 36.8L , Mean Corpuscular Volume 86, Mean Corpuscular Hemoglobin 27.8, Mean Corpuscular Hemoglobin Concent 32.1, Red Cell Distribution Width 14.4, Platelet Count 229, Mean Platelet Volume 7.3, Neutrophils (%) (Auto) 50.8, Lymphocytes (% ) (Auto) 32.4, Monocytes (%) (Auto) 10.1H, Eosinophils (%) (Auto) 5.9H, Basophils (%) (Auto) 0.8, Sodium Level 134L, Potassium Level 3.7, Chloride Level 99, Carbon Dioxide Level 27, Anion Gap 8, Blood Urea Nitrogen 15, Creatinine 0.9, Estimat Glomerular Filtration Rate , Glucose Level 81, Calcium Level 9.2, Carcinoembryonic Antigen [Pending] Height (Feet): 5 Height (Inches): 4.00 Weight (Pounds): 183 Sidney Moe MD May 16, 2018 13:50
--- NOTE | 2018-05-16 14:48 | Surgery Progress Note ---
Surgery Progress Note Subjective Additional Comments pathology noted. exam unchanged. stable. comfortable Objective Last 24 Hour Vital Signs Date Time Temp Pulse Resp B/P (MAP) Pulse Ox O2 Delivery O2 Flow Rate FiO2 05/16/18 12:00 97.5 70 17 139/77 (97) 94 05/16/18 09:00 Room Air 05/16/18 08:00 96.3 76 19 131/80 (97) 98 05/16/18 04:00 97.7 60 20 115/72 (86) 98 05/16/18 00:00 97.5 63 20 123/84 (97) 95 05/15/18 21:00 Room Air 05/15/18 20:00 97.5 67 20 115/73 (87) 96 05/15/18 16:00 98.5 67 20 125/82 (96) 99 I&O Intake and Output 05/15/18 05/16/18 18:59 06:59 Intake Total 1080 ml 8000 ml Output Total 2400 ml Balance -1320 ml 8000 ml Intake Oral 1080 ml 8000 ml Output Urine Total 2400 ml # Voids 2 22 Drains: none Cardiovascular: RSR Respiratory: clear Abdomen: soft, flat, non-tender, present bowel sounds, non-distended Extremities: no tenderness, no cyanosis Laboratory Tests Test 05/16/18 06:08 White Blood Count 5.2 K/UL (4.8-10.8) Red Blood Count 4.25 M/UL (4.70-6.10) L Hemoglobin 11.8 G/DL (14.2-18.0) L Hematocrit 36.8 % (42.0-52.0) L Mean Corpuscular Volume 86 FL (80-99) Mean Corpuscular Hemoglobin 27.8 PG (27.0-31.0) Mean Corpuscular Hemoglobin Concent 32.1 G/DL (32.0-36.0) Red Cell Distribution Width 14.4 % (11.6-14.8) Platelet Count 229 K/UL (150-450) Mean Platelet Volume 7.3 FL (6.5-10.1) Neutrophils (%) (Auto) 50.8 % (45.0-75.0) Lymphocytes (%) (Auto) 32.4 % (20.0-45.0) Monocytes (%) (Auto) 10.1 % (1.0-10.0) H Eosinophils (%) (Auto) 5.9 % (0.0-3.0) H Basophils (%) (Auto) 0.8 % (0.0-2.0) Sodium Level 134 MMOL/L (136-145) L Potassium Level 3.7 MMOL/L (3.5-5.1) Chloride Level 99 MMOL/L (98-107) Carbon Dioxide Level 27 MMOL/L (21-32) Anion Gap 8 mmol/L (5-15) Blood Urea Nitrogen 15 mg/dL (7-18) Creatinine 0.9 MG/DL (0.55-1.30) Estimat Glomerular Filtration Rate mL/min (>60) Glucose Level 81 MG/DL (74-106) Calcium Level 9.2 MG/DL (8.5-10.1) Carcinoembryonic Antigen Pending Plan Problems: (1) Rectal mass Assessment & Plan: This is a 72 male with recently diagnosed rectal mass likely carcinoma on colonoscopy after episode of bright red blood per rectum. GI notes appreciated oncology note appreciated. prelim path likely rectal adenocarcinoma CT without suspicious lesions Needs CXR vs CT Chest for staging purposes Pending CEA Mass not palpable on LUCAS Colonoscopy note noted Path with invasive adenoCa. Pelvic MRI pending. Defer to GI for EUS for staging vs pelvic MRI - patient refusing pelvic MRI Heme/onc appreciated Considerations for chemoradiation Tx Surgery reserved for obstruction or active bleeding. will follow with recs thank you Chuck Andrew May 16, 2018 14:48
[2018-05-16 16:00] VITALS: BP 143/101
--- NOTE | 2018-05-16 16:24 | NUR ---
Social Service Note LISA faxed referral to Sherri at [facility], for returned placement. [phone] (p) [phone] (f). LISA informed patient's mother Leigh Diaz [phone] who was in agreement with discharge plan. LISA also left a message for Jayashree Robertson [phone] public guardian regarding dc. Awaiting bed assignment. Will follow up.
[2018-05-16] MEDS: Montelukast 10mg tablet ORAL SCH (16:30)
--- NOTE | 2018-05-16 17:00 | NUR ---
*-* DISCHARGE PLANNED *-* PATIENT IS DISCHARGED TO: [facility] ROOM# 26-C SKILLED T:[phone] FOR NURSE TO NURSE REPORT [facility] HAS BEEN ARRANGED FOR COPY DIRECTOR AT [address] [phone]
--- NOTE | 2018-05-16 17:24 | General Progress Note ---
Assessment/Plan Assessment/Plan Assessment and Recs: # Rectal adenocarcinoma, well differentiated, current CT a/p with contrast shows no distant mets --> Gi noted and surg recs appreciated as well as surg recs --> anemia panel has been reviewed and c/w aid --> iron iv continue x 5 days --> may need eus for loco-regional staging, such as mri (currently has been refusing) --> may need further gi care, surg as well --> gi recs appreciated --> given poor capacity, and likely lack of followup, consider conservative f/u # Anemia due to gi bleed --> anemia full panel shows aid --> iron started # Lower gi bleed due likely to rectal mass --> path shows malignancy # Dementia - likely chronic --> continue to monitor # Azotemia is likely due to dehydration --> administer ivf as needed The timing of this note does not necessarily reflect the time of the patient was seen. Greatly appreciate consultation! Subjective Constitutional: Denies: no symptoms, chills, diaphoresis, fever, malaise, weakness, other HEENT: Denies: no symptoms, eye pain, blurred vision, tearing, double vision, ear pain, ear discharge, nose pain, nose congestion, throat pain, throat swelling, mouth pain, mouth swelling, other Cardiovascular: Denies: no symptoms, chest pain, edema, irregular heart rate, lightheadedness, palpitations, syncope, other Respiratory: Denies: no symptoms, cough, orthopnea, shortness of breath, SOB with excertion, SOB at rest, sputum, stridor, wheezing, other Gastrointestinal/Abdominal: Denies: no symptoms, abdomen distended, abdominal pain, black stools, tarry stools, blood in stool, constipated, diarrhea, difficulty swallowing, nausea, poor appetite, poor fluid intake, rectal bleeding , vomiting, other Genitourinary: Denies: no symptoms, burning, discharge, frequency, flank pain, hematuria, incontinence, pain, urgency, other Neurologic/Psychiatric: Denies: no symptoms, anxiety, depressed, emotional problems, headache, numbness, paresthesia, pre-existing deficit, seizure, tingling, tremors, weakness, other Allergies: Coded Allergies: FEXOFENADINE (Verified Allergy, Unknown, 05/10/18) Subjective 05/13: reviewed gi recs and cea is pending at the moment, result sof rectal mass bx pending, surg eval prn 05/14: seen in the room,no acute events, prelim path said to be biopsy proven adenocarcinoma. pending final read 05/15: pt is confused, denies acute distress, no acute events reported, cbc reviewed, plt trending down 05/16: continues to refuse mri, do not have ful staging Objective Last 24 Hour Vital Signs Date Time Temp Pulse Resp B/P (MAP) Pulse Ox O2 Delivery O2 Flow Rate FiO2 05/16/18 12:00 97.5 70 17 139/77 (97) 94 05/16/18 09:00 Room Air 05/16/18 08:00 96.3 76 19 131/80 (97) 98 05/16/18 04:00 97.7 60 20 115/72 (86) 98 05/16/18 00:00 97.5 63 20 123/84 (97) 95 05/15/18 21:00 Room Air 05/15/18 20:00 97.5 67 20 115/73 (87) 96 Intake and Output 05/15/18 05/16/18 18:59 06:59 Intake Total 1080 ml 8000 ml Output Total 2400 ml Balance -1320 ml 8000 ml Intake Oral 1080 ml 8000 ml Output Urine Total 2400 ml # Voids 2 22 Laboratory Tests 05/16/18 06:08: White Blood Count 5.2, Red Blood Count 4.25L, Hemoglobin 11.8L, Hematocrit 36.8L , Mean Corpuscular Volume 86, Mean Corpuscular Hemoglobin 27.8, Mean Corpuscular Hemoglobin Concent 32.1, Red Cell Distribution Width 14.4, Platelet Count 229, Mean Platelet Volume 7.3, Neutrophils (%) (Auto) 50.8, Lymphocytes (% ) (Auto) 32.4, Monocytes (%) (Auto) 10.1H, Eosinophils (%) (Auto) 5.9H, Basophils (%) (Auto) 0.8, Sodium Level 134L, Potassium Level 3.7, Chloride Level 99, Carbon Dioxide Level 27, Anion Gap 8, Blood Urea Nitrogen 15, Creatinine 0.9, Estimat Glomerular Filtration Rate , Glucose Level 81, Calcium Level 9.2, Carcinoembryonic Antigen [Pending] Height (Feet): 5 Height (Inches): 4.00 Weight (Pounds): 183 Objective General Appearance: normal inspection, well appearing Head: atraumatic ENT: normal ENT inspection, hearing grossly normal, normal voice Neck: normal inspection, full range of motion, supple Respiratory: normal inspection, lungs clear, normal breath sounds Cardiovascular: regular rate, rhythm, no edema Gastrointestinal: normal inspection Rectal: other - gross blood Genitourinary: no CVA tenderness Musculoskeletal: normal inspection Neurologic: normal inspection, alert Psychiatric: mood/affect normal Skin: normal inspection, normal color, no rash Dajuan Freedman MD May 16, 2018 17:24
[2018-05-16] MEDS ORDERED: OLANZAPINE2.5 MG ORAL (17:33)
[2018-05-16] MEDS: Haloperidol 5mg/ml Inj IM PRN (18:10)
--- NOTE | 2018-05-16 18:44 | NUR ---
CASE MANAGEMENT: REVIEW SI: LOWER GI BLEED . RECTAL MASS DIAGNOSTIC COLONOSCOPY 05/11 T 97.5 HR 78 RR 19 BP 143/101 SAT 97% ROOM AIR H/H 11.8/36.8 IS: VENOFER IV QHS FEOSOL PO TID COLACE PO BID FLEET'S ENEMA X1 MORPHINE IV Q8HR PRN MED/SURG STATUS DCP: PATIENT IS FROM HOME PLAN: AWAITING FINAL PATH RESULTS SURGERY RESERVED FOR OBSTRUCTION OR ACTIVE BLEEDING
--- NOTE | 2018-05-16 19:21 | NUR ---
NURSE NOTES: REPORT GIVEN TO JEAN MARIE CHAVEZ AT [facility]. MADE AWARE OF CONSERVATOR. PT'S BELONGINGS ARE CLOTHING, WHICH PT IS WEARING. PT REFUSED TO SIGN BELONGINGS LIST. CONSERVATOR PAPERWORK INCLUDED IN DISCHARGE PACKET. WAITING FOR [facility] FOR [facility].
--- NOTE | 2018-05-16 19:22 | NUR ---
HAND-OFF: Report given to Rozina HOLLOWAY RN.
--- NOTE | 2018-05-16 20:14 | NUR ---
NURSE NOTES: Received patient comfortably resting in bed,being transferred to [facility] by ambulance as ordered.
[2018-05-16 20:19] VITALS: BP 132/85
[2018-05-16] MEDS ORDERED: Fleet's Enema 133ml RECTAL SCH (23:00)
[2018-05-17] MEDS ORDERED: Fleet's Enema 133ml RECTAL SCH (06:00)
--- NOTE | 2018-05-17 13:23 | Discharge Summary ---
Discharge Summary Discharge Summary _ DATE OF ADMISSION: 05/10/2018 DATE OF DISCHARGE: 05/16/2018 DISCHARGED BY: Dr. Sidney Moe CONSULTANTS: Dr. Chuck Galvez BRIEF HOSPITAL COURSE: This is a 72-year-old male, who was brought in by EMS after increased rectal bleeding. [facility] where he was noted to have bright red blood per rectum. Patient has a history of schizophrenia, atrial fibrillation on anticoagulation. On evaluation at the ED, vital signs were stable. Blood work was stable. Urinalysis was negative. He was given IV tranexamic acid due to risk of bleeding. He was admitted for evaluation of GI bleed. He was placed on n.p.o. GI was consulted. Eliquis was placed on hold. On 03/2018, he underwent colonoscopy with biopsy. There was finding of an ulcerated mass in the rectum about 9 cm from the anal verge, lesion on measured about 2-2.5 cm in size, ulcerative in nature, highly suspicious for adenocarcinoma. Patient was agitated and wanting to internal stimuli. Patient was delusional and was attempting to come out of bed. Psychiatric evaluation was done. Patient was given Remeron and Zyprexa. Dr. Dajuan Freedman was consulted. Anemia workup consistent with anemia of iron deficiency. He was given iron supplements. Cardiac evaluation was done. Patient has history of paroxysmal atrial fibrillation on anticoagulation therapy. Patient was assessed CHADS-VASc score for thromboembolic event based on age she is considered to be 2 and therefore, there was no indication for use of anticoagulation therapy. Surgical evaluation was done. Mass was not palpable on LUCAS. Await pathology results. Was recommended MRI of the pelvic region, however patient refused. CEA still pending. Pathology results showed moderately differentiated adenocarcinoma. Patient will eventually need EUS for locoregional staging. Patient was advised need for outpatient follow-up however, given lack of capacity, patient will have poor outpatient follow-up, matter was discussed another family member. Patient was discharged to a intermediate facility. FINAL DIAGNOSES: Rectal adenocarcinoma Anemia due to GI bleed Lower GI bleed likely due to rectal mass Status post colonoscopy Dementia behavioral disturbance Azotemia due to dehydration Paroxysmal atrial fibrillation with controlled rate BPH Hyperlipidemia Acute metabolic encephalopathy DISPOSITION: Patient was discharged to a SNF. DISCHARGE MEDICATIONS: Refer to Discharge Medication List. I have been assigned to complete a discharge summary on this account, I was not involved with the patient's management. Mary Cartwright NP May 17, 2018 13:23
== END 2018-05-16 20:30 | DRG 374 ==
LOC: EDBD 11:21 → EMR 12:05 → 2E 13:33 → EDBEDREQ 14:23 → 2E 23:06 → 4E 05-11 17:48
PROC: 0DDP8ZX Extraction of Rectum, Via Natural or Artificial Opening Endoscopic, Diagnostic (ICD-10-PCS; principal; 2018-05-11 13:40)
DX: C20 Malignant neoplasm of rectum (principal); G92 Toxic encephalopathy; K92.2 Gastrointestinal hemorrhage, unspecified; F03.91 Unspecified dementia, unspecified severity, with behavioral disturbance; F20.9 Schizophrenia, unspecified; J44.9 Chronic obstructive pulmonary disease, unspecified; I48.0 Paroxysmal atrial fibrillation; K57.90 Diverticulosis of intestine, part unspecified, without perforation or abscess without bleeding; I45.10 Unspecified right bundle-branch block; E86.0 Dehydration; N40.0 Benign prostatic hyperplasia without lower urinary tract symptoms; E78.5 Hyperlipidemia, unspecified; I10 Essential (primary) hypertension; E03.9 Hypothyroidism, unspecified; K21.9 Gastro-esophageal reflux disease without esophagitis; D50.9 Iron deficiency anemia, unspecified; Z79.01 Long term (current) use of anticoagulants
CPT/HCPCS: 36415; 74177; 80048; 80053; 81003; 82378; 82728; 83540; 83550; 83690; 84238; 84484; 85025; 85044; 85610; 85660; 85730; 86850; 86900; 86901; 87081; 93005; 94003; 94150; 96374; 99285; J8499